=== PATIENT | female | born 1995 | race Caucasian/White ===

== ENCOUNTER 2016-06-12 21:49 | Emergency (ER) | payer OTHER ==
[2016-06-12] MEDS ORDERED: ACETAMINOPHEN TAB 325 MG TAB PO STA (22:07)
[2016-06-12] MEDS ORDERED: IBUPROFEN 400 MG TAB PO STA (22:08)
--- NOTE | 2016-06-12 22:19 | ED ---
URI HPI - General Chief Complaint: Upper Respiratory Infection Stated Complaint: fever/congestion Time Seen by Provider: 06/12/16 21:58 Source: patient Mode of arrival: ambulatory Limitations: no limitations - History of Present Illness Initial Comments: Patient is a 21-year-old female presenting to the emergency department with complaints of fever, cough, congestion, headache, and body aches. Onset of symptoms 2 days ago. MD Complaint: fever Onset/Timin -: days(s) Severity: moderate Severity scale (1-10): 6 Quality: aching Consistency: constant Improves With: nothing Worsens With: nothing Context: sick contacts (Patient's mother is currently being treated for bronchitis and pneumonia. Patient's son has fevers and cough.) Associated Symptoms: fever, chills, myalgias, headache, nasal congestion, sore throat, cough, vomiting (Patient vomited once today.) - Related Data Home Medications Medication Instructions Recorded Confirmed Pnv with Ca,No.72/Iron/FA 1 each PO DAILY 05/15/14 09/04/14 [ Vitamin with Low Iron] Previous Rx's Medication Instructions Recorded Oseltamivir [Tamiflu] 75 mg PO Q12HR #10 cap 06/12/16 Allergies Allergy/AdvReac Type Severity Reaction Status Date / Time No Known Allergies Allergy Verified 06/12/16 21:56 Review of Systems ROS Statement: Those systems with pertinent positive or pertinent negative responses have been documented in the HPI. ROS Other: All systems not noted in ROS Statement are negative. Past Medical History Past Medical History: No Reported History Additional Past Medical History / Comment(s): SYNCOPE; gestational diabetes diet controlled History of Any Multi-Drug Resistant Organisms: None Reported Additional Past Surgical History / Comment(s): KIDNEY SURGERY Past Anesthesia/Blood Transfusion Reactions: No Reported Reaction Past Psychological History: No Psychological Hx Reported Smoking Status: Never smoker Past Alcohol Use History: None Reported Past Drug Use History: None Reported - Past Family History Mother Family Medical History: No Reported History Brother(s) Additional Family Medical History / Comment(s): Autistic General Exam Limitations: no limitations General appearance: alert, in no apparent distress Head exam: Present: atraumatic, normocephalic, normal inspection Eye exam: Present: normal appearance, PERRL. Absent: scleral icterus, conjunctival injection, periorbital swelling, periorbital tenderness ENT exam: Present: normal exam, normal oropharynx, mucous membranes moist, TM's normal bilaterally, normal external ear exam Neck exam: Present: normal inspection, full ROM. Absent: tenderness, lymphadenopathy Respiratory exam: Present: normal lung sounds bilaterally. Absent: respiratory distress, wheezes, rales, rhonchi, stridor Cardiovascular Exam: Present: normal rhythm, tachycardia, normal heart sounds GI/Abdominal exam: Present: soft, normal bowel sounds. Absent: tenderness Extremities exam: Present: normal inspection, full ROM, normal capillary refill Back exam: Present: normal inspection, full ROM Neurological exam: Present: alert, oriented X3, normal gait, other (No focal deficits). Absent: motor sensory deficit Psychiatric exam: Present: normal affect, normal mood Skin exam: Present: warm, dry, intact, normal color. Absent: rash Course Vital Signs 06/12/16 21:54 Temperature 102.5 F H Pulse Rate 125 H Respiratory 22 Rate Blood Pressure 115/69 O2 Sat by Pulse 99 Oximetry Medical Decision Making - Medical Decision Making Influenza B. Patient provided with a prescription for Tamiflu. Instructed to continue Tylenol or Motrin for fever and pain. Encourage oral intake. Follow- up with primary care physician if symptoms do not improve or the emergency department. Patient agrees with treatment plan. Discharge instructions and return parameters reviewed. - Lab Data Lab Results 06/12/16 Range/Units 22:00 Influenza Type A RNA Not Detected (Not Detectd) Influenza Type B (PCR) Detected H (Not Detectd) - Radiology Data Radiology results: report reviewed Chest x-ray: No active cardiopulmonary process. Disposition Clinical Impression: Influenza B Disposition: HOME SELF-CARE Condition: Good Instructions: Influenza (ED) Additional Instructions: Finish Tamiflu as prescribed. Continue Motrin and Tylenol for fever and pain. Stay hydrated. Follow-up with primary care physician as needed. Please return to the emergency department if symptoms do not improve or get worse. Prescriptions: Oseltamivir [Tamiflu] 75 mg PO Q12HR #10 cap Referrals: Angelo Bales MD [Primary Care Provider] - 1-2 days Time of Disposition: 22:41
--- NOTE | 2016-06-12 22:27 | XR ---
EXAM: XR Chest, 2 Views. CLINICAL HISTORY: Reason: Pain TECHNIQUE: Frontal and lateral views of the chest. COMPARISON: None available FINDINGS: Lungs: Lungs are clear.. Pleural space: Unremarkable. No pneumothorax. Heart: Unremarkable. No cardiomegaly. Mediastinum: Unremarkable. Bones/joints: Unremarkable. IMPRESSION: No evidence of active chest disease
[2016-06-12] MEDS ORDERED: OSELTAMIVIR 75 MG CAP PO STA (22:36)
[2016-06-12 23:12] VITALS: BP 132/62; PULSE 85; RESP 18; TEMP 100.6
== END 2016-06-12 23:12 | disposition home or self-care (01) ==
LOC: EC 21:49
DX: J10.1 Influenza due to other identified influenza virus with other respiratory manifestations (principal)
CPT/HCPCS: 71020; 87502; 99283

== ENCOUNTER → 2017-04-17 | Outpatient (CLI) | payer OTHER ==
[2017-04-19 05:07] LABS: Herpes simplex I and/or II IgM 0.65 INDEX (<=0.90); Herpes simplex IgG I Ab 0.01 (< or = 0.90); Herpes simplex IgG II Ab 0.1 (< or = 0.90)
== END | disposition home or self-care (01) ==
LOC: LABWHC1 14:22
PROVIDERS: ATTEND Obstetrics & Gynecology
DX: Z20.2 Contact with and (suspected) exposure to infections with a predominantly sexual mode of transmission (principal); Z71.1 Person with feared health complaint in whom no diagnosis is made
CPT/HCPCS: 36415; 86694; 86695; 86696

== ENCOUNTER → 2017-05-16 | Outpatient (CLI) | payer OTHER | END | disposition home or self-care (01) | LOC: LABWHC1 11:01 | PROVIDERS: ATTEND Obstetrics & Gynecology | DX: Z34.90 Encounter for supervision of normal pregnancy, unspecified, unspecified trimester (principal) | CPT/HCPCS: 36415; 84702 ==

== ENCOUNTER 2017-07-01 10:56 | Emergency (ER) | payer OTHER ==
[2017-07-01] MEDS ORDERED: SODIUM CHLORIDE 0.9% 1,000 ML IV STA (11:22)
[2017-07-01 11:41] LABS: Basophils % (A) 0 %; Eosinophils # (A) 0.1 k/uL (0-0.7); Eosinophils % (A) 2 %; HCT 38.4 % (34.0-46.0); HGB 13.9 gm/dL (11.4-16.0); Lymphocytes # (A) 1.2 k/uL (1.0-4.8); Lymphocytes % (A) 29 %; MCH 30.6 pg (25.0-35.0); MCHC 36.2 g/dL (31.0-37.0); MCV 84.5 fL (80.0-100.0); Mean Platelet Volume 6.5; Monocytes # (A) 0.2 k/uL (0-1.0); Monocytes % (A) 5 %; Neutrophils # (A) 2.5 k/uL (1.3-7.7); Neutrophils % (A) 62 %; Platelet Count 173 k/uL (150-450); RBC 4.55 m/uL (3.80-5.40); RDW 12.4 % (11.5-15.5); WBC 4.1 k/uL (3.8-10.6)
[2017-07-01 11:48] LABS: Amorphous Sediment,Urine Rare /hpf; Appearance,Urine Cloudy (Clear); Bacteria,Urine Few /hpf; Bilirubin,Urine Negative (Negative); Blood,Urine Negative (Negative); Color,Urine Yellow; Glucose,Urine (UA) Negative (Negative); Ketones,Urine Negative (Negative); Leukocyte Esterase,Urine Large (Negative); Mucus,Urine Rare /hpf; Nitrite,Urine Positive (Negative); Protein,Urine Negative (Negative); Specific Gravity,Urine 1.013 (1.001-1.035); Squamous Epithelial Cell,Urine 17 /hpf (0-4); Urobilinogen,Urine <2.0 mg/dL (<2.0); WBC,Urine 38 /hpf (0-5)
[2017-07-01 11:51] LABS: ALT 22 U/L (9-52); AST 16 U/L (14-36); Albumin 4.4 g/dL (3.5-5.0); Alkaline Phosphatase 75 U/L (38-126); Amylase 41 U/L (30-110); Anion Gap 13 mmol/L; Blood Urea Nitrogen 13 mg/dL (7-17); Calcium 9.5 mg/dL (8.4-10.2); Carbon Dioxide 25 mmol/L (22-30); Chloride 104 mmol/L (98-107); Glucose 91 mg/dL (74-99); Lipase 55 U/L (23-300); Potassium 4.3 mmol/L (3.5-5.1); Sodium 142 mmol/L (137-145); Total Bilirubin 0.8 mg/dL (0.2-1.3); Total Protein 7.5 g/dL (6.3-8.2)
--- NOTE | 2017-07-01 11:55 | ED ---
Abdominal Pain HPI - General Chief Complaint: Abdominal Pain Stated Complaint: Abdominal pain Time Seen by Provider: 07/01/17 11:16 Source: patient, RN notes reviewed Mode of arrival: ambulatory Limitations: no limitations - History of Present Illness Initial Comments: This a 22-year-old female presents emergency Department chief complaint of intermittent abdominal pain. Patient states has been present last few days. Patient has had some nausea no vomiting no diarrhea no constipation. Denies any dysuria hematuria. Patient states nothing seems to bring on her symptoms are chronic and feel better. She does state that they're very short-lived. She states the pain is sharp stabbing nonradiating. She denies any prior abdominal surgeries. Her last mental cycle was one week ago. Denies any chance . Denies any vaginal bleeding or vaginal discharge. - Related Data Previous Rx's Medication Instructions Recorded Ciprofloxacin HCl [Cipro] 500 mg PO Q12HR #14 tablet 07/01/17 Allergies Allergy/AdvReac Type Severity Reaction Status Date / Time No Known Allergies Allergy Verified 07/01/17 12:36 Review of Systems ROS Statement: Those systems with pertinent positive or pertinent negative responses have been documented in the HPI. ROS Other: All systems not noted in ROS Statement are negative. Past Medical History Past Medical History: No Reported History Additional Past Medical History / Comment(s): SYNCOPE; gestational diabetes diet controlled History of Any Multi-Drug Resistant Organisms: None Reported Additional Past Surgical History / Comment(s): KIDNEY SURGERY Past Anesthesia/Blood Transfusion Reactions: No Reported Reaction Past Psychological History: No Psychological Hx Reported Smoking Status: Never smoker Past Alcohol Use History: Occasional Past Drug Use History: None Reported - Past Family History Mother Family Medical History: No Reported History Brother(s) Additional Family Medical History / Comment(s): Autistic General Exam Limitations: no limitations General appearance: alert, in no apparent distress Head exam: Present: atraumatic, normocephalic, normal inspection Respiratory exam: Present: normal lung sounds bilaterally. Absent: respiratory distress, wheezes, rales, rhonchi, stridor Cardiovascular Exam: Present: regular rate, normal rhythm, normal heart sounds. Absent: systolic murmur, diastolic murmur, rubs, gallop, clicks GI/Abdominal exam: Present: soft, normal bowel sounds. Absent: distended, tenderness, guarding, rebound, rigid Back exam: Absent: CVA tenderness (R), CVA tenderness (L) Skin exam: Present: warm, dry, intact, normal color. Absent: rash Course Vital Signs 07/01/17 10:57 Temperature 98.6 F Pulse Rate 90 Respiratory 20 Rate Blood Pressure 132/81 O2 Sat by Pulse 98 Oximetry Medical Decision Making - Medical Decision Making 22-year-old female presented from foramina lower abdominal pain. Patient is found to have urinary tract infection. Patient's pelvic ultrasound was within normal limits no evidence of brain cyst. Patient's labwork otherwise unremarkable. Patient be given Rocephin emergency Department discharged on ciprofloxacin. Patient urine was cultured. She'll follow-up with primary care physician and return for any worsening symptoms. - Lab Data Result diagrams: 07/01/17 11:20 07/01/17 11:20 Lab Results 07/01/17 07/01/17 07/01/17 Range/Units 11:20 11:20 11:20 WBC 4.1 (3.8-10.6) k/uL RBC 4.55 (3.80-5.40) m/uL Hgb 13.9 (11.4-16.0) gm/dL Hct 38.4 (34.0-46.0) % MCV 84.5 (80.0-100.0) fL MCH 30.6 (25.0-35.0) pg MCHC 36.2 (31.0-37.0) g/dL RDW 12.4 (11.5-15.5) % Plt Count 173 (150-450) k/uL Neutrophils % 62 % Lymphocytes % 29 % Monocytes % 5 % Eosinophils % 2 % Basophils % 0 % Neutrophils # 2.5 (1.3-7.7) k/uL Lymphocytes # 1.2 (1.0-4.8) k/uL Monocytes # 0.2 (0-1.0) k/uL Eosinophils # 0.1 (0-0.7) k/uL Basophils # 0.0 (0-0.2) k/uL Sodium 142 (137-145) mmol/L Potassium 4.3 (3.5-5.1) mmol/L Chloride 104 (98-107) mmol/L Carbon Dioxide 25 (22-30) mmol/L Anion Gap 13 mmol/L BUN 13 (7-17) mg/dL Creatinine 0.60 (0.52-1.04) mg/dL Est GFR (CKD-EPI)AfAm >90 (>60 ml/min/1.73 sqM) Est GFR (CKD-EPI)NonAf >90 (>60 ml/min/1.73 sqM) Glucose 91 (74-99) mg/dL Calcium 9.5 (8.4-10.2) mg/dL Total Bilirubin 0.8 (0.2-1.3) mg/dL AST 16 (14-36) U/L ALT 22 (9-52) U/L Alkaline Phosphatase 75 (38-126) U/L Total Protein 7.5 (6.3-8.2) g/dL Albumin 4.4 (3.5-5.0) g/dL Amylase 41 (30-110) U/L Lipase 55 (23-300) U/L Urine Color Yellow Urine Appearance Cloudy H (Clear) Urine pH 7.0 (5.0-8.0) Ur Specific [place] 1.013 (1.001-1.035) Urine Protein Negative (Negative) Urine Glucose (UA) Negative (Negative) Urine Ketones Negative (Negative) Urine Blood Negative (Negative) Urine Nitrite Positive H (Negative) Urine Bilirubin Negative (Negative) Urine Urobilinogen <2.0 (<2.0) mg/dL Ur Leukocyte Esterase Large H (Negative) Urine WBC 38 H (0-5) /hpf Urine WBC Clumps Rare H (None) /hpf Ur Squamous Epith Cells 17 H (0-4) /hpf Amorphous Sediment Rare H (None) /hpf Urine Bacteria Few H (None) /hpf Urine Mucus Rare H (None) /hpf Urine HCG, Qual (Not Detectd) 07/01/17 Range/Units 11:20 WBC (3.8-10.6) k/uL RBC (3.80-5.40) m/uL Hgb (11.4-16.0) gm/dL Hct (34.0-46.0) % MCV (80.0-100.0) fL MCH (25.0-35.0) pg MCHC (31.0-37.0) g/dL RDW (11.5-15.5) % Plt Count (150-450) k/uL Neutrophils % % Lymphocytes % % Monocytes % % Eosinophils % % Basophils % % Neutrophils # (1.3-7.7) k/uL Lymphocytes # (1.0-4.8) k/uL Monocytes # (0-1.0) k/uL Eosinophils # (0-0.7) k/uL Basophils # (0-0.2) k/uL Sodium (137-145) mmol/L Potassium (3.5-5.1) mmol/L Chloride (98-107) mmol/L Carbon Dioxide (22-30) mmol/L Anion Gap mmol/L BUN (7-17) mg/dL Creatinine (0.52-1.04) mg/dL Est GFR (CKD-EPI)AfAm (>60 ml/min/1.73 sqM) Est GFR (CKD-EPI)NonAf (>60 ml/min/1.73 sqM) Glucose (74-99) mg/dL Calcium (8.4-10.2) mg/dL Total Bilirubin (0.2-1.3) mg/dL AST (14-36) U/L ALT (9-52) U/L Alkaline Phosphatase (38-126) U/L Total Protein (6.3-8.2) g/dL Albumin (3.5-5.0) g/dL Amylase (30-110) U/L Lipase (23-300) U/L Urine Color Urine Appearance (Clear) Urine pH (5.0-8.0) Ur Specific [place] (1.001-1.035) Urine Protein (Negative) Urine Glucose (UA) (Negative) Urine Ketones (Negative) Urine Blood (Negative) Urine Nitrite (Negative) Urine Bilirubin (Negative) Urine Urobilinogen (<2.0) mg/dL Ur Leukocyte Esterase (Negative) Urine WBC (0-5) /hpf Urine WBC Clumps (None) /hpf Ur Squamous Epith Cells (0-4) /hpf Amorphous Sediment (None) /hpf Urine Bacteria (None) /hpf Urine Mucus (None) /hpf Urine HCG, Qual Not Detected (Not Detectd) Disposition Clinical Impression: UTI (urinary tract infection), Abdominal pain Disposition: HOME SELF-CARE Condition: Stable Instructions: Urinary Tract Infection in Women (ED) Additional Instructions: Please return to the Emergency Department if symptoms worsen or any other concerns. Prescriptions: Ciprofloxacin HCl [Cipro] 500 mg PO Q12HR #14 tablet Referrals: Angelo Bales MD [Primary Care Provider] - 1-2 days Time of Disposition: 13:00
--- NOTE | 2017-07-01 12:57 | US ---
EXAMINATION TYPE: US transvaginal DATE OF EXAM: 07/01/2017 COMPARISON: NONE CLINICAL HISTORY: Pain. Pt states midline pelvic pain that started this AM TECHNIQUE: Transvaginal (TV). Date of LMP: 06/21/2017 EXAM MEASUREMENTS: Uterus: 8.2 x 4.0 x 6.0 cm Endometrial Stripe: 0.9 cm Right Ovary: 3.3 x 2.4 x 2.6 cm Left Ovary: 3.2 x 2.1 x 2.8 cm 1. Uterus: Anteverted wnl 2. Endometrium: wnl 3. Right Ovary: wnl 4. Left Ovary: Dominant follicle= 1.4 cm Spectral, color and waveform doppler imaging shows good arterial and venous flow within the ovaries ; there is no evidence for ovarian torsion. 5. Bilateral Adnexa: wnl 6. Posterior cul-de-sac: Scant amount of fluid posterior to cervix IMPRESSION: NORMAL PELVIC ULTRASOUND.
[2017-07-01] MEDS ORDERED: cefTRIAXone IN SWFI 1,000 MG/10 ML SYRINGE IVP STA (13:00)
[2017-07-01 13:07] VITALS: BP 122/78; PULSE 79; RESP 17; TEMP 98.3
== END 2017-07-01 13:30 | disposition home or self-care (01) ==
LOC: EC 10:56
DX: N39.0 Urinary tract infection, site not specified (principal); R10.30 Lower abdominal pain, unspecified; Z98.890 Other specified postprocedural states
CPT/HCPCS: 36415; 80053; 82150; 83690; 85025; 81001; 81025; 93975; 76830; 99284; 96374; 96361; J0696

== ENCOUNTER 2017-11-01 20:30 | Emergency (ER) | payer OTHER ==
[2017-11-01 21:09] VITALS: BP 111/66; PULSE 103; RESP 18; TEMP 98.4
[2017-11-02 06:05] LABS: Appearance,Urine Cloudy (Clear); Bacteria,Urine Moderate /hpf; Bilirubin,Urine Negative (Negative); Blood,Urine Negative (Negative); Color,Urine Yellow; Glucose,Urine (UA) Negative (Negative); Ketones,Urine Negative (Negative); Leukocyte Esterase,Urine Large (Negative); Mucus,Urine Rare /hpf; Nitrite,Urine Negative (Negative); Protein,Urine Trace (Negative); RBC,Urine 3 /hpf (0-5); Specific Gravity,Urine 1.015 (1.001-1.035); Squamous Epithelial Cell,Urine 17 /hpf (0-4); Urobilinogen,Urine <2.0 mg/dL (<2.0); WBC,Urine 64 /hpf (0-5)
== END 2017-11-02 00:30 | disposition home or self-care (01) ==
LOC: EC 20:30
DX: R10.13 Epigastric pain (principal); Z98.890 Other specified postprocedural states
CPT/HCPCS: 81001; 81025; 87086; 99284

== ENCOUNTER 2018-01-06 12:45 | Emergency (ER) | payer OTHER ==
[2018-01-06] MEDS ORDERED: diphenhydrAMINE 50 MG/ML 1 ML VIAL IVP STA (13:08)
[2018-01-06] MEDS ORDERED: SODIUM CHLORIDE 0.9% 2,000 ML IV STA (13:08)
[2018-01-06] MEDS ORDERED: METOCLOPRAMIDE 5 MG/ML 2 ML VIAL IVP STA (13:08)
--- NOTE | 2018-01-06 13:21 | ED ---
Nausea/Vomiting/Diarrhea HPI - General Chief complaint: Nausea/Vomiting/Diarrhea Stated complaint: 7 WEEKS , NAUSEA, VOMITING Time Seen by Provider: 01/06/18 12:59 Source: patient, family, RN notes reviewed, old records reviewed Mode of arrival: ambulatory Limitations: no limitations - History of Present Illness Initial comments: 22-year-old female who is currently 7 weeks , AUTOMATION OPERATOR is Dr. Galeana. Patient states that she's been having nonstop nausea and vomiting for the past few weeks. It's been increasingly worse over the past 2 days. Patient states she feels somewhat weak. She also reports she's been treated for urinary tract infection. She started antibiotics yesterday. His only had one dose. Patient denies any fever or chills, denies any back pain. She denies any vaginal bleeding or discharge. This is her second . - Related Data Home Medications Medication Instructions Recorded Confirmed Pnv No.95/Ferrous Fum/Folic AC 1 each PO DAILY 01/06/18 01/06/18 [ Multivitamin Tablet] Allergies Allergy/AdvReac Type Severity Reaction Status Date / Time codeine AdvReac Nausea & Verified 01/06/18 12:50 Vomiting Review of Systems ROS Statement: Those systems with pertinent positive or pertinent negative responses have been documented in the HPI. ROS Other: All systems not noted in ROS Statement are negative. Past Medical History Past Medical History: Syncope Additional Past Medical History / Comment(s): SYNCOPE; gestational diabetes diet controlled History of Any Multi-Drug Resistant Organisms: None Reported Additional Past Surgical History / Comment(s): KIDNEY SURGERY Past Anesthesia/Blood Transfusion Reactions: No Reported Reaction Past Psychological History: No Psychological Hx Reported Smoking Status: Never smoker Past Alcohol Use History: Occasional Past Drug Use History: None Reported - Past Family History Mother Family Medical History: No Reported History Brother(s) Additional Family Medical History / Comment(s): Autistic General Exam - General Exam Comments Initial Comments: (22-year-old female. Alert and oriented. No Distress. Limitations: no limitations General appearance: alert, in no apparent distress Head exam: Present: atraumatic, normocephalic, normal inspection Eye exam: Present: normal appearance, PERRL, EOMI. Absent: scleral icterus, conjunctival injection, periorbital swelling ENT exam: Present: normal exam, mucous membranes moist Neck exam: Present: normal inspection. Absent: tenderness, meningismus, lymphadenopathy Respiratory exam: Present: normal lung sounds bilaterally. Absent: respiratory distress, wheezes, rales, rhonchi, stridor Cardiovascular Exam: Present: regular rate, normal rhythm, normal heart sounds. Absent: systolic murmur, diastolic murmur, rubs, gallop, clicks GI/Abdominal exam: Present: soft, normal bowel sounds. Absent: distended, tenderness, guarding, rebound, rigid Extremities exam: Present: normal inspection, full ROM, normal capillary refill. Absent: tenderness, pedal edema, joint swelling, calf tenderness Back exam: Present: normal inspection Neurological exam: Present: alert, oriented X3, CN II-XII intact Psychiatric exam: Present: normal affect, normal mood Skin exam: Present: warm, dry, intact, normal color. Absent: rash Course Vital Signs 01/06/18 01/06/18 01/06/18 12:50 14:45 15:44 Temperature 99.4 F 99.0 F Pulse Rate 97 87 81 Respiratory 18 20 20 Rate Blood Pressure 121/58 106/62 102/56 O2 Sat by Pulse 100 99 99 Oximetry Medical Decision Making - Medical Decision Making 22-year-old, female, currently 7 weeks presents prescription complaint of nausea and vomiting for the past few weeks. Worse for the past 2 days. Is also being treated for urinary tract infection at this time. She has been on Keflex. Patient was given IV fluids labwork obtained. Patient's labwork was reviewed and unremarkable. She was given 2 L of IV fluids, Reglan and Benadryl for nausea. She denies any specific pain at this time. Urinalysis is positive for infection. Discussed I will give the Patient a dose of Rocephin in the emergency department. Patient did have a health information technologist. heart tones. Baby appears to be normal, symmetric 6 weeks and 6 days. Heart rate was 126. At this time Patient also was noted to have a mass with a right ovary. Discussed close follow-up with AUTOMATION OPERATOR. Patient informed of his results and return parameters were discussed. She feels much better at time of discharge. - Lab Data Result diagrams: 01/06/18 13:30 01/06/18 13:30 Lab Results 01/06/18 01/06/18 01/06/18 Range/Units 13:30 13:30 13:30 WBC 6.7 (3.8-10.6) k/uL RBC 4.09 (3.80-5.40) m/uL Hgb 12.2 (11.4-16.0) gm/dL Hct 35.7 (34.0-46.0) % MCV 87.2 (80.0-100.0) fL MCH 29.9 (25.0-35.0) pg MCHC 34.3 (31.0-37.0) g/dL RDW 12.8 (11.5-15.5) % Plt Count 183 (150-450) k/uL Neutrophils % 84 % Lymphocytes % 8 % Monocytes % 5 % Eosinophils % 1 % Basophils % 0 % Neutrophils # 5.6 (1.3-7.7) k/uL Lymphocytes # 0.6 L (1.0-4.8) k/uL Monocytes # 0.4 (0-1.0) k/uL Eosinophils # 0.1 (0-0.7) k/uL Basophils # 0.0 (0-0.2) k/uL Sodium 141 (137-145) mmol/L Potassium 4.6 (3.5-5.1) mmol/L Chloride 105 (98-107) mmol/L Carbon Dioxide 24 (22-30) mmol/L Anion Gap 12 mmol/L BUN 12 (7-17) mg/dL Creatinine 0.53 (0.52-1.04) mg/dL Est GFR (CKD-EPI)AfAm >90 (>60 ml/min/1.73 sqM) Est GFR (CKD-EPI)NonAf >90 (>60 ml/min/1.73 sqM) Glucose 91 (74-99) mg/dL Calcium 9.7 (8.4-10.2) mg/dL Total Bilirubin 1.3 (0.2-1.3) mg/dL AST 21 (14-36) U/L ALT 17 (9-52) U/L Alkaline Phosphatase 65 (38-126) U/L Total Protein 8.0 (6.3-8.2) g/dL Albumin 4.5 (3.5-5.0) g/dL Amylase 37 (30-110) U/L Lipase 61 (23-300) U/L Urine Color Yellow Urine Appearance Cloudy H (Clear) Urine pH 6.5 (5.0-8.0) Ur Specific [place] 1.019 (1.001-1.035) Urine Protein Trace H (Negative) Urine Glucose (UA) Negative (Negative) Urine Ketones 1+ H (Negative) Urine Blood Negative (Negative) Urine Nitrite Positive H (Negative) Urine Bilirubin Negative (Negative) Urine Urobilinogen 2.0 (<2.0) mg/dL Ur Leukocyte Esterase Large H (Negative) Urine RBC 1 (0-5) /hpf Urine WBC 43 H (0-5) /hpf Urine WBC Clumps Rare H (None) /hpf Ur Squamous Epith Cells 12 H (0-4) /hpf Urine Bacteria Rare H (None) /hpf Urine Mucus Moderate H (None) /hpf - Radiology Data Radiology results: report reviewed Single intrauterine gestation at 6 weeks and 6 days. Hypoechoic collection adjacent to the gestational sac which may represent a subchorionic hemorrhage. Cardiac activity is 1 24 bpm. Solid lesion on the right ovary. Follow-up is recommended. Disposition Clinical Impression: 6 weeks gestation of , Nausea & vomiting, UTI in , Right ovarian cyst Disposition: HOME SELF-CARE Condition: Good Instructions: Acute Nausea and Vomiting (ED) Additional Instructions: Patient has up with AUTOMATION OPERATOR and primary care physician. Rest, remain hydrated. Take vitamin B6 help with nausea. Return to emergency department if any alarming signs or symptoms occur. Is patient prescribed a controlled substance at d/c from ED?: No Referrals: Aneglo Bales MD [Primary Care Provider] - 1-2 days Jose Guerin DO [Doctor of Osteopathic Medicine] - 1-2 days Time of Disposition: 15:21
[2018-01-06 13:48] LABS: Basophils % (A) 0 %; Eosinophils # (A) 0.1 k/uL (0-0.7); Eosinophils % (A) 1 %; HCT 35.7 % (34.0-46.0); HGB 12.2 gm/dL (11.4-16.0); Lymphocytes # (A) 0.6 k/uL (1.0-4.8); Lymphocytes % (A) 8 %; MCH 29.9 pg (25.0-35.0); MCHC 34.3 g/dL (31.0-37.0); MCV 87.2 fL (80.0-100.0); Mean Platelet Volume 7.4; Monocytes # (A) 0.4 k/uL (0-1.0); Monocytes % (A) 5 %; Neutrophils # (A) 5.6 k/uL (1.3-7.7); Neutrophils % (A) 84 %; Platelet Count 183 k/uL (150-450); RBC 4.09 m/uL (3.80-5.40); RDW 12.8 % (11.5-15.5); WBC 6.7 k/uL (3.8-10.6)
[2018-01-06 13:53] LABS: Appearance,Urine Cloudy (Clear); Bacteria,Urine Rare /hpf; Bilirubin,Urine Negative (Negative); Blood,Urine Negative (Negative); Color,Urine Yellow; Glucose,Urine (UA) Negative (Negative); Ketones,Urine 1+ (Negative); Leukocyte Esterase,Urine Large (Negative); Mucus,Urine Moderate /hpf; Nitrite,Urine Positive (Negative); PH, Urine 6.5 (5.0-8.0); Protein,Urine Trace (Negative); RBC,Urine 1 /hpf (0-5); Specific Gravity,Urine 1.019 (1.001-1.035); Squamous Epithelial Cell,Urine 12 /hpf (0-4); WBC,Urine 43 /hpf (0-5)
[2018-01-06 13:58] LABS: Albumin 4.5 g/dL (3.5-5.0); Amylase 37 U/L (30-110); Anion Gap 12 mmol/L; Blood Urea Nitrogen 12 mg/dL (7-17); Calcium 9.7 mg/dL (8.4-10.2); Carbon Dioxide 24 mmol/L (22-30); Chloride 105 mmol/L (98-107); Glucose 91 mg/dL (74-99); Lipase 61 U/L (23-300); Sodium 141 mmol/L (137-145); Total Bilirubin 1.3 mg/dL (0.2-1.3)
[2018-01-06 14:01] LABS: ALT 17 U/L (9-52); AST 21 U/L (14-36); Alkaline Phosphatase 65 U/L (38-126); Potassium 4.6 mmol/L (3.5-5.1)
[2018-01-06 14:51] VITALS: RESP 20
--- NOTE | 2018-01-06 15:05 | US ---
EXAMINATION TYPE: Transabdominal DATE OF EXAM: 07/11/17 COMPARISON: NONE CLINICAL HISTORY: Pain. Patient unable to keep anything down, no complaints of bleeding or cramping. EXAM PERFORMED: Transvaginal (TV) and Transabdominal (TA) EXAM MEASUREMENTS: GESTATIONAL AGE / DATING Physician Established: Not yet established Dates by LMP: (7 weeks/2 days) EDC: 08/23/2018 Dates by First Scan: No previous this is first scan Dates by Current Scan for: (6 weeks/6 days) EDC: 08/26/2018 MATERNAL ANATOMY Uterus: 6.7 x 6.4 x 7.8 cm Right Ovary: 3.0 x 2.1 x 3.3 cm Left Ovary: 2.7 x 1.3 x 1.6 cm Post CDS / Adnexa: no free fluid Presence of free fluid: none Presence of corpus luteal cyst: solid area on right ovary measures 1.9 x 1.6 x 1.4 cm without increas ed vascularity. Presence of subchorionic bleed: anechoic area adjacent to sac measures 1.9 x 0.5 x 1.5 cm GESTATION / SURVEY CRL: 0.9 cm (6 weeks/6 days) Yolk Sac (normal less than 6mm): 0.3 cm Heart Rate: 124 bpm Rhythm: Normal IUP: Viable IUP Date of LMP: 11/16/2017 Beta HcG (if available): not available Single IUP that correlates with LMP. IMPRESSION: 1. Single intrauterine gestation estimated at 6 weeks 6 days gestation based on crown-rump length. 2. Hypoechoic collection adjacent to the gestational sac may be a subchorionic hemorrhage. 3. Cardiac activity measures 124 bpm. 4. Solid lesion on the right ovary. Follow-up is recommended.
[2018-01-06 15:45] VITALS: BP 102/56; PULSE 81; TEMP 99
== END 2018-01-06 15:44 | disposition home or self-care (01) ==
LOC: EC 12:45
DX: O21.9 Vomiting of pregnancy, unspecified (principal); O23.41 Unspecified infection of urinary tract in pregnancy, first trimester; O99.89 Other specified diseases and conditions complicating pregnancy, childbirth and the puerperium; N83.201 Unspecified ovarian cyst, right side; Z88.5 Allergy status to narcotic agent; Z3A.01 Less than 8 weeks gestation of pregnancy
CPT/HCPCS: 36415; 80053; 82150; 83690; 85025; 81001; 87086; 76801; 76817; 99284; 96365; 96375 ×2; 96361; J1200; J2765; J0696; 87077; 87186

== ENCOUNTER 2018-01-09 14:31 | Emergency (ER) | payer OTHER ==
[2018-01-09 14:39] VITALS: TEMP 98.3
[2018-01-09] MEDS ORDERED: SODIUM CHLORIDE 0.9% 1,000 ML IV STA ×2 (14:47)
[2018-01-09] MEDS ORDERED: METOCLOPRAMIDE 5 MG/ML 2 ML VIAL IVP STA (14:47)
[2018-01-09] MEDS ORDERED: diphenhydrAMINE 50 MG/ML 1 ML VIAL IVP STA (14:47)
--- NOTE | 2018-01-09 14:49 | ED ---
Nausea/Vomiting/Diarrhea HPI - General Chief complaint: Nausea/Vomiting/Diarrhea Stated complaint: Abd pain, headache, Time Seen by Provider: 01/09/18 14:41 Source: patient, RN notes reviewed, old records reviewed Mode of arrival: ambulatory Limitations: no limitations - History of Present Illness Initial comments: 22-year-old female presents emergency department today for reevaluation due to nausea and vomiting. She is approximately 8 weeks . Her [employer] is Dr. Galeana. Patient states that she is being treated for urinary tract infection. She has been taking the Keflex but having hard time keeping her antibiotics medications down. She's been draining Unisom and B6 but has had little relief of her nausea. She states she is now having some chest pain and discomfort due to the vomiting. Patient denies any recent fever or chills. She states she's been having some lower cramping abdominal pain but denies any diarrhea. She denies any vaginal discharge or bleeding. - Related Data Home Medications Medication Instructions Recorded Confirmed Pnv No.95/Ferrous Fum/Folic AC 1 tab PO DAILY 01/06/18 01/09/18 [ Multivitamin Tablet] Cephalexin [Keflex] 500 mg PO QID 01/09/18 01/09/18 Doxylamine Succinate [Unisom] 25 mg PO HS 01/09/18 01/09/18 Pyridoxine [Vitamin B-6] 50 mg PO BID 01/09/18 01/09/18 Previous Rx's Medication Instructions Recorded Cephalexin [Keflex] 500 mg PO Q8HR #21 cap 01/09/18 Metoclopramide HCl [Reglan] 10 mg PO TID #12 tablet 01/09/18 diphenhydrAMINE [Benadryl] 25 mg PO TID #20 capsule 01/09/18 Allergies Allergy/AdvReac Type Severity Reaction Status Date / Time codeine AdvReac Nausea & Verified 01/09/18 14:51 Vomiting Review of Systems ROS Statement: Those systems with pertinent positive or pertinent negative responses have been documented in the HPI. ROS Other: All systems not noted in ROS Statement are negative. Past Medical History Past Medical History: Syncope Additional Past Medical History / Comment(s): SYNCOPE; gestational diabetes diet controlled History of Any Multi-Drug Resistant Organisms: None Reported Additional Past Surgical History / Comment(s): KIDNEY SURGERY Past Anesthesia/Blood Transfusion Reactions: No Reported Reaction Past Psychological History: No Psychological Hx Reported Smoking Status: Never smoker Past Alcohol Use History: Occasional Past Drug Use History: None Reported - Past Family History Mother Family Medical History: No Reported History Brother(s) Additional Family Medical History / Comment(s): Autistic General Exam - General Exam Comments Initial Comments: 22-year-old female. Alert and oriented. No acute distress. Limitations: no limitations General appearance: alert, in no apparent distress Head exam: Present: atraumatic, normocephalic, normal inspection Eye exam: Present: normal appearance, PERRL, EOMI. Absent: scleral icterus, conjunctival injection, periorbital swelling ENT exam: Present: normal exam, mucous membranes moist Neck exam: Present: normal inspection. Absent: tenderness, meningismus, lymphadenopathy Respiratory exam: Present: normal lung sounds bilaterally. Absent: respiratory distress, wheezes, rales, rhonchi, stridor Cardiovascular Exam: Present: regular rate, normal rhythm, normal heart sounds. Absent: systolic murmur, diastolic murmur, rubs, gallop, clicks GI/Abdominal exam: Present: soft, normal bowel sounds. Absent: distended, tenderness, guarding, rebound, rigid Extremities exam: Present: normal inspection, full ROM, normal capillary refill. Absent: tenderness, pedal edema, joint swelling, calf tenderness Back exam: Present: normal inspection Neurological exam: Present: alert, oriented X3, CN II-XII intact Psychiatric exam: Present: normal affect, normal mood Skin exam: Present: warm, dry, intact, normal color. Absent: rash Course Vital Signs 01/09/18 14:36 Temperature 98.3 F Pulse Rate 99 Respiratory 18 Rate Blood Pressure 108/75 O2 Sat by Pulse 100 Oximetry - Reevaluation(s) Reevaluation #1: 01/09/18 17:26 is reevaluated this time. Patient that she was better after Reglan and Benadryl and fluids. Medical Decision Making - Medical Decision Making 22-year-old female presents emergency department today with chief complaint of nausea vomiting. She states that she's been having the symptoms through the majority of early . She was seen by myself 2 days ago for similar complaints. At that time Patient was treated for urinary tract infection I did give the Patient IV Rocephin. She does have outpatient prescription for Keflex. She rubs today complaining of continued nausea and vomiting. Since she cannot keep her antibiotics down. Patient's vital signs are stable. Patient's labwork was reviewed and unremarkable. Did give the Patient 2 L bolus. She does feel better after receiving Reglan and Benadryl. I will give the Patient another gram of Rocephin as her urinalysis to continue to show some signs of minor infection. She has no CVA tenderness. No fever at this time. I discussed that we'll discharge Patient today with Reglan and Benadryl prescription and that she could use instead of the Unisom and B6. I discussed that she has some follow-up with PCP. Patient agrees to treatment plan will comply. Return parameters were discussed. - Lab Data Result diagrams: 01/09/18 15:10 01/09/18 15:10 Lab Results 01/09/18 01/09/18 01/09/18 Range/Units 15:10 15:10 17:05 WBC 5.0 (3.8-10.6) k/uL RBC 4.41 (3.80-5.40) m/uL Hgb 13.2 (11.4-16.0) gm/dL Hct 38.2 (34.0-46.0) % MCV 86.6 (80.0-100.0) fL MCH 29.8 (25.0-35.0) pg MCHC 34.5 (31.0-37.0) g/dL RDW 12.7 (11.5-15.5) % Plt Count 119 L (150-450) k/uL Neutrophils % 76 % Lymphocytes % 17 % Monocytes % 4 % Eosinophils % 2 % Basophils % 0 % Neutrophils # 3.8 (1.3-7.7) k/uL Lymphocytes # 0.8 L (1.0-4.8) k/uL Monocytes # 0.2 (0-1.0) k/uL Eosinophils # 0.1 (0-0.7) k/uL Basophils # 0.0 (0-0.2) k/uL Sodium 139 (137-145) mmol/L Potassium 4.3 (3.5-5.1) mmol/L Chloride 103 (98-107) mmol/L Carbon Dioxide 21 L (22-30) mmol/L Anion Gap 15 mmol/L BUN 11 (7-17) mg/dL Creatinine 0.53 (0.52-1.04) mg/dL Est GFR (CKD-EPI)AfAm >90 (>60 ml/min/1.73 sqM) Est GFR (CKD-EPI)NonAf >90 (>60 ml/min/1.73 sqM) Glucose 84 (74-99) mg/dL Calcium 9.7 (8.4-10.2) mg/dL Total Bilirubin 1.1 (0.2-1.3) mg/dL AST 24 (14-36) U/L ALT 20 (9-52) U/L Alkaline Phosphatase 78 (38-126) U/L Total Protein 7.9 (6.3-8.2) g/dL Albumin 4.4 (3.5-5.0) g/dL Amylase 44 (30-110) U/L Lipase 101 (23-300) U/L Urine Color Yellow Urine Appearance Cloudy H (Clear) Urine pH 7.0 (5.0-8.0) Ur Specific [place] 1.017 (1.001-1.035) Urine Protein Trace H (Negative) Urine Glucose (UA) Negative (Negative) Urine Ketones 3+ H (Negative) Urine Blood Negative (Negative) Urine Nitrite Negative (Negative) Urine Bilirubin Negative (Negative) Urine Urobilinogen 2.0 (<2.0) mg/dL Ur Leukocyte Esterase Large H (Negative) Urine RBC 8 H (0-5) /hpf Urine WBC 23 H (0-5) /hpf Ur Squamous Epith Cells 24 H (0-4) /hpf Amorphous Sediment Rare H (None) /hpf Urine Bacteria Few H (None) /hpf Urine Mucus Moderate H (None) /hpf - Radiology Data Radiology results: report reviewed Viable IUP. Heart rate of 140 beats per any. Disposition Clinical Impression: Nausea & vomiting, UTI in Disposition: HOME SELF-CARE Condition: Good Instructions: Urinary Tract Infection in Women (ED), Nausea and Vomiting in (ED) Additional Instructions: Patient has a follow-up with primary care provider. Follow-up with [employer]. Take previously prescribed antibiotics. Return to emergency department if any alarming signs or symptoms occur. Prescriptions: Cephalexin [Keflex] 500 mg PO Q8HR #21 cap diphenhydrAMINE [Benadryl] 25 mg PO TID #20 capsule Metoclopramide HCl [Reglan] 10 mg PO TID #12 tablet Is patient prescribed a controlled substance at d/c from ED?: No Referrals: Angelo Bales MD [Primary Care Provider] - 1-2 days Time of Disposition: 17:46
[2018-01-09 15:23] LABS: Basophils % (A) 0 %; Eosinophils # (A) 0.1 k/uL (0-0.7); Eosinophils % (A) 2 %; HCT 38.2 % (34.0-46.0); HGB 13.2 gm/dL (11.4-16.0); Lymphocytes # (A) 0.8 k/uL (1.0-4.8); Lymphocytes % (A) 17 %; MCH 29.8 pg (25.0-35.0); MCHC 34.5 g/dL (31.0-37.0); MCV 86.6 fL (80.0-100.0); Mean Platelet Volume 7.7; Monocytes # (A) 0.2 k/uL (0-1.0); Monocytes % (A) 4 %; Neutrophils # (A) 3.8 k/uL (1.3-7.7); Neutrophils % (A) 76 %; Platelet Count 119 k/uL (150-450); RBC 4.41 m/uL (3.80-5.40); RDW 12.7 % (11.5-15.5)
[2018-01-09 15:32] LABS: ALT 20 U/L (9-52); AST 24 U/L (14-36); Albumin 4.4 g/dL (3.5-5.0); Alkaline Phosphatase 78 U/L (38-126); Amylase 44 U/L (30-110); Anion Gap 15 mmol/L; Blood Urea Nitrogen 11 mg/dL (7-17); Calcium 9.7 mg/dL (8.4-10.2); Carbon Dioxide 21 mmol/L (22-30); Chloride 103 mmol/L (98-107); Glucose 84 mg/dL (74-99); Lipase 101 U/L (23-300); Potassium 4.3 mmol/L (3.5-5.1); Sodium 139 mmol/L (137-145); Total Bilirubin 1.1 mg/dL (0.2-1.3); Total Protein 7.9 g/dL (6.3-8.2)
--- NOTE | 2018-01-09 16:35 | US ---
EXAMINATION TYPE: US OB limited DATE OF EXAM: 01/09/2018 COMPARISON: 01/06/2018 CLINICAL HISTORY: Pain. EXAM PERFORMED: Transabdominal (TA) GESTATIONAL AGE / DATING Physician Established: Not yet established No growth performed on today?s study per ordering physician SURVEY HEART RATE: 140 bpm RHYTHM: Normal IMPRESSION: Viable intrauterine .
[2018-01-09 17:28] LABS: Amorphous Sediment,Urine Rare /hpf; Appearance,Urine Cloudy (Clear); Bacteria,Urine Few /hpf; Bilirubin,Urine Negative (Negative); Blood,Urine Negative (Negative); Color,Urine Yellow; Glucose,Urine (UA) Negative (Negative); Ketones,Urine 3+ (Negative); Leukocyte Esterase,Urine Large (Negative); Mucus,Urine Moderate /hpf; Nitrite,Urine Negative (Negative); Protein,Urine Trace (Negative); RBC,Urine 8 /hpf (0-5); Specific Gravity,Urine 1.017 (1.001-1.035); Squamous Epithelial Cell,Urine 24 /hpf (0-4); WBC,Urine 23 /hpf (0-5)
[2018-01-09 18:21] VITALS: BP 112/58; PULSE 77; RESP 16
== END 2018-01-09 19:06 | disposition home or self-care (01) ==
LOC: EC 14:31
DX: O23.41 Unspecified infection of urinary tract in pregnancy, first trimester (principal); O21.9 Vomiting of pregnancy, unspecified; O99.89 Other specified diseases and conditions complicating pregnancy, childbirth and the puerperium; R07.9 Chest pain, unspecified; O24.410 Gestational diabetes mellitus in pregnancy, diet controlled; Z88.5 Allergy status to narcotic agent; Z79.899 Other long term (current) drug therapy; Z98.890 Other specified postprocedural states; Z3A.08 8 weeks gestation of pregnancy
CPT/HCPCS: 36415; 80053; 82150; 83690; 85025; 81001; 76815; 99284; 96365; 96375 ×2; 96361 ×3; J1200; J2765; J0696

== ENCOUNTER → 2018-01-11 | Outpatient (CLI) | payer OTHER ==
--- NOTE | 2018-01-12 07:32 | US ---
EXAMINATION TYPE: Transabdominal DATE OF EXAM: 07/11/17 COMPARISON: 01/09/2018 CLINICAL HISTORY: Z36 confirm dates. EXAM PERFORMED: Transabdominal (TA) EXAM MEASUREMENTS: GESTATIONAL AGE / DATING Physician Established: Not yet established Dates by LMP: (8 weeks/0 days) EDC: 08/23/18 Dates by First Scan: (7 weeks/4 days) EDC: 08/26/18 Dates by Current Scan for: (7 weeks/1 days) EDC: 08/29/18 MATERNAL ANATOMY Uterus: 6.7 x 5.5 x 7.7cm Right Ovary: 3.2 x 1.6 x 1.5cm Left Ovary: 2.4 x1.5 x 1.3 Post CDS / Adnexa: wnl GESTATION / SURVEY CRL: 1.1 (7 weeks/1 days) Yolk Sac (normal less than 6mm): 2mm Heart Rate: 148 bpm Rhythm: Normal IUP: Viable IUP Date of LMP: 11/16/17 Beta HcG (if available): Not available at this time IMPRESSION: Viable of 7 weeks 1 day with a heart rate of 148 bpm
== END | disposition home or self-care (01) ==
LOC: RADUSWWP 15:40
PROVIDERS: ATTEND Obstetrics & Gynecology
DX: Z36.89 Encounter for other specified antenatal screening (principal)
CPT/HCPCS: 76801

== ENCOUNTER 2018-04-04 09:07 | Emergency (ER) | payer OTHER ==
[2018-04-04] MEDS ORDERED: SODIUM CHLORIDE 0.9% 1,000 ML IV STA (09:23)
[2018-04-04] MEDS ORDERED: ACETAMINOPHEN TAB 500 MG TAB PO STA (09:24)
--- NOTE | 2018-04-04 09:26 | ED ---
Abdominal Pain HPI - General Chief Complaint: Abdominal Pain Stated Complaint: Abd Pain-19 wks Time Seen by Provider: 04/04/18 09:11 Source: patient, RN notes reviewed, old records reviewed Mode of arrival: ambulatory Limitations: no limitations - History of Present Illness Initial Comments: Patient is a 23-year-old female who presents emergency department today with chief complaint of diffuse abdominal pain starting at 2 PM yesterday. She reports it was not associated with eating. She reports that she has constant low generalized abdominal pain but then it comes in waves with more severe. She denies diarrhea , she did have one episode of vomiting. Patient states that she's had no fevers or chills. She denies any vaginal bleeding or discharge. Patient is a female. NATIONAL ACCOUNT REPRESENTATIVE is Dr. Galeana. - Related Data Home Medications Medication Instructions Recorded Confirmed Pnv No.95/Ferrous Fum/Folic AC 1 tab PO DAILY 01/06/18 04/04/18 [ Multivitamin Tablet] Acetaminophen Tab [Tylenol Tab] 650 mg PO Q4H PRN 04/04/18 04/04/18 Previous Rx's Medication Instructions Recorded Cephalexin [Keflex] 500 mg PO Q8HR #21 cap 04/04/18 Allergies Allergy/AdvReac Type Severity Reaction Status Date / Time codeine AdvReac Nausea & Verified 04/04/18 09:16 Vomiting Review of Systems ROS Statement: Those systems with pertinent positive or pertinent negative responses have been documented in the HPI. ROS Other: All systems not noted in ROS Statement are negative. Past Medical History Past Medical History: Syncope Additional Past Medical History / Comment(s): SYNCOPE; gestational diabetes diet controlled History of Any Multi-Drug Resistant Organisms: None Reported Additional Past Surgical History / Comment(s): KIDNEY SURGERY Past Anesthesia/Blood Transfusion Reactions: No Reported Reaction Past Psychological History: No Psychological Hx Reported Smoking Status: Never smoker Past Alcohol Use History: Occasional Past Drug Use History: None Reported - Past Family History Mother Family Medical History: No Reported History Brother(s) Additional Family Medical History / Comment(s): Autistic General Exam - General Exam Comments Initial Comments: 23-year-old female. Alert and oriented. Patient appears in no acute distress. General: Well appearing, well nourished, in no distress. Oriented x 3, normal mood and affect . Ambulating without difficulty. Skin: Good turgor, no rash, unusual bruising or prominent lesions Hair: Normal texture and distribution. HEENT: Head: Normocephalic, atraumatic, no visible or palpable masses, depressions, or scaring. Eyes: Visual acuity intact, conjunctiva clear, sclera non-icteric, EOM intact, PERRL. Ears: EACs clear, TMs translucent & cone of light visualized. hearing intact. Nose: No external lesions, mucosa non-inflamed, septum and turbinates normal Mouth: Mucous membranes moist, no mucosal lesions. Teeth/Gums: No obvious caries or periodontal disease. No gingival inflammation or significant resorption. Pharynx: Mucosa non-inflamed, no tonsillar hypertrophy or exudate Neck: Supple, without lesions, bruits, or adenopathy, thyroid non-enlarged and non-tender Heart: No cardiomegaly or thrills; regular rate and rhythm, no murmur or gallop Lungs: Clear to auscultation and percussion Abdomen: Bowel sounds normal, no tenderness, organomegaly, masses, or hernia Back: Spine normal without deformity or tenderness, no CVA tenderness Extremities: No amputations or deformities, cyanosis, edema or varicosities, peripheral pulses intact Musculoskeletal: Normal gait and station. No misalignment, asymmetry, crepitation, defects, tenderness, masses, effusions, decreased range of motion, instability, atrophy or abnormal strength or tone in the head, neck, spine, ribs , pelvis or extremities. Neurologic: CN 2-12 normal. Sensation to pain, touch, and proprioception normal. DTRs normal in upper and lower extremities. No pathologic reflexes. Psychiatric: Oriented X3, intact recent and remote memory, judgment and insight , normal mood and affect. Limitations: no limitations Course Vital Signs 04/04/18 04/04/18 09:09 10:30 Temperature 98 F Pulse Rate 111 H 96 Respiratory 16 18 Rate Blood Pressure 122/87 115/69 O2 Sat by Pulse 100 99 Oximetry Medical Decision Making - Medical Decision Making Patient is a 1 female with a few hours of diffuse abdominal pain. She is having no vaginal discharge and bleeding At this time. Heart tones were obtained and were 130 bpm. If she is no bleeding at this time. She denies any concern for vaginal discharge. At this time patient's urinalysis is positive for infection. She's had history of chronic urinary tract infections. Patient was treated in January for similar symptoms. At this time I'll give the Patient a dose of IV Rocephin and urine culture pending. Rest of her lab work was reviewed and unremarkable. Discussed at this time Patient will be discharged with Keflex prescription and close follow-up with primary care provider and NATIONAL ACCOUNT REPRESENTATIVE. - Lab Data Result diagrams: 04/04/18 09:35 04/04/18 09:35 Lab Results 04/04/18 04/04/18 04/04/18 Range/Units 09:35 09:35 09:35 WBC 7.2 (3.8-10.6) k/uL RBC 3.50 L (3.80-5.40) m/uL Hgb 10.8 L (11.4-16.0) gm/dL Hct 31.2 L (34.0-46.0) % MCV 89.2 (80.0-100.0) fL MCH 30.8 (25.0-35.0) pg MCHC 34.5 (31.0-37.0) g/dL RDW 14.9 (11.5-15.5) % Plt Count 197 (150-450) k/uL Neutrophils % 80 % Lymphocytes % 14 % Monocytes % 4 % Eosinophils % 1 % Basophils % 0 % Neutrophils # 5.8 (1.3-7.7) k/uL Lymphocytes # 1.0 (1.0-4.8) k/uL Monocytes # 0.3 (0-1.0) k/uL Eosinophils # 0.1 (0-0.7) k/uL Basophils # 0.0 (0-0.2) k/uL PT 9.6 (9.0-12.0) sec INR 0.9 (<1.2) APTT 23.2 (22.0-30.0) sec Sodium 139 (137-145) mmol/L Potassium 4.3 (3.5-5.1) mmol/L Chloride 108 H (98-107) mmol/L Carbon Dioxide 23 (22-30) mmol/L Anion Gap 8 mmol/L BUN 9 (7-17) mg/dL Creatinine 0.54 (0.52-1.04) mg/dL Est GFR (CKD-EPI)AfAm >90 (>60 ml/min/1.73 sqM) Est GFR (CKD-EPI)NonAf >90 (>60 ml/min/1.73 sqM) Glucose 91 (74-99) mg/dL Calcium 9.0 (8.4-10.2) mg/dL Total Bilirubin 1.2 (0.2-1.3) mg/dL AST 12 L (14-36) U/L ALT 17 (9-52) U/L Alkaline Phosphatase 71 (38-126) U/L Total Protein 6.8 (6.3-8.2) g/dL Albumin 3.6 (3.5-5.0) g/dL Amylase 31 (30-110) U/L Lipase 49 (23-300) U/L Urine Color Urine Appearance (Clear) Urine pH (5.0-8.0) Ur Specific [place] (1.001-1.035) Urine Protein (Negative) Urine Glucose (UA) (Negative) Urine Ketones (Negative) Urine Blood (Negative) Urine Nitrite (Negative) Urine Bilirubin (Negative) Urine Urobilinogen (<2.0) mg/dL Ur Leukocyte Esterase (Negative) Urine WBC (0-5) /hpf Urine WBC Clumps (None) /hpf Ur Squamous Epith Cells (0-4) /hpf Amorphous Sediment (None) /hpf Urine Bacteria (None) /hpf Urine Mucus (None) /hpf 04/04/18 Range/Units 09:35 WBC (3.8-10.6) k/uL RBC (3.80-5.40) m/uL Hgb (11.4-16.0) gm/dL Hct (34.0-46.0) % MCV (80.0-100.0) fL MCH (25.0-35.0) pg MCHC (31.0-37.0) g/dL RDW (11.5-15.5) % Plt Count (150-450) k/uL Neutrophils % % Lymphocytes % % Monocytes % % Eosinophils % % Basophils % % Neutrophils # (1.3-7.7) k/uL Lymphocytes # (1.0-4.8) k/uL Monocytes # (0-1.0) k/uL Eosinophils # (0-0.7) k/uL Basophils # (0-0.2) k/uL PT (9.0-12.0) sec INR (<1.2) APTT (22.0-30.0) sec Sodium (137-145) mmol/L Potassium (3.5-5.1) mmol/L Chloride (98-107) mmol/L Carbon Dioxide (22-30) mmol/L Anion Gap mmol/L BUN (7-17) mg/dL Creatinine (0.52-1.04) mg/dL Est GFR (CKD-EPI)AfAm (>60 ml/min/1.73 sqM) Est GFR (CKD-EPI)NonAf (>60 ml/min/1.73 sqM) Glucose (74-99) mg/dL Calcium (8.4-10.2) mg/dL Total Bilirubin (0.2-1.3) mg/dL AST (14-36) U/L ALT (9-52) U/L Alkaline Phosphatase (38-126) U/L Total Protein (6.3-8.2) g/dL Albumin (3.5-5.0) g/dL Amylase (30-110) U/L Lipase (23-300) U/L Urine Color Yellow Urine Appearance Turbid H (Clear) Urine pH 7.5 (5.0-8.0) Ur Specific [place] 1.014 (1.001-1.035) Urine Protein Trace H (Negative) Urine Glucose (UA) Negative (Negative) Urine Ketones Negative (Negative) Urine Blood Negative (Negative) Urine Nitrite Negative (Negative) Urine Bilirubin Negative (Negative) Urine Urobilinogen 3.0 (<2.0) mg/dL Ur Leukocyte Esterase Large H (Negative) Urine WBC 83 H (0-5) /hpf Urine WBC Clumps Occasional H (None) /hpf Ur Squamous Epith Cells 26 H (0-4) /hpf Amorphous Sediment Few H (None) /hpf Urine Bacteria Occasional H (None) /hpf Urine Mucus Rare H (None) /hpf Disposition Clinical Impression: UTI in Disposition: HOME SELF-CARE Condition: Good Instructions: Urinary Tract Infection in (ED) Additional Instructions: Patient has close follow up with primary care provider. Return to the emergency department if any alarming signs or symptoms occur. Prescriptions: Cephalexin [Keflex] 500 mg PO Q8HR #21 cap Is patient prescribed a controlled substance at d/c from ED?: No Referrals: Angelo Bales MD [Primary Care Provider] - 1-2 days Time of Disposition: 11:51
[2018-04-04 10:05] LABS: Amorphous Sediment,Urine Few /hpf; Appearance,Urine Turbid (Clear); Bacteria,Urine Occasional /hpf; Bilirubin,Urine Negative (Negative); Blood,Urine Negative (Negative); Color,Urine Yellow; Glucose,Urine (UA) Negative (Negative); Ketones,Urine Negative (Negative); Leukocyte Esterase,Urine Large (Negative); Mucus,Urine Rare /hpf; Nitrite,Urine Negative (Negative); PH, Urine 7.5 (5.0-8.0); Protein,Urine Trace (Negative); Specific Gravity,Urine 1.014 (1.001-1.035); Squamous Epithelial Cell,Urine 26 /hpf (0-4); WBC,Urine 83 /hpf (0-5)
[2018-04-04 10:06] LABS: ALT 17 U/L (9-52); AST 12 U/L (14-36); Albumin 3.6 g/dL (3.5-5.0); Alkaline Phosphatase 71 U/L (38-126); Amylase 31 U/L (30-110); Anion Gap 8 mmol/L; Blood Urea Nitrogen 9 mg/dL (7-17); Carbon Dioxide 23 mmol/L (22-30); Chloride 108 mmol/L (98-107); Glucose 91 mg/dL (74-99); INR 0.9 (<1.2); Lipase 49 U/L (23-300); Partial Thromboplastin Time 23.2 sec (22.0-30.0); Potassium 4.3 mmol/L (3.5-5.1); Prothrombin Time 9.6 sec (9.0-12.0); Sodium 139 mmol/L (137-145); Total Bilirubin 1.2 mg/dL (0.2-1.3); Total Protein 6.8 g/dL (6.3-8.2)
[2018-04-04 10:10] LABS: Basophils % (A) 0 %; Eosinophils # (A) 0.1 k/uL (0-0.7); Eosinophils % (A) 1 %; HCT 31.2 % (34.0-46.0); HGB 10.8 gm/dL (11.4-16.0); Lymphocytes % (A) 14 %; MCH 30.8 pg (25.0-35.0); MCHC 34.5 g/dL (31.0-37.0); MCV 89.2 fL (80.0-100.0); Mean Platelet Volume 6.5; Monocytes # (A) 0.3 k/uL (0-1.0); Monocytes % (A) 4 %; Neutrophils # (A) 5.8 k/uL (1.3-7.7); Neutrophils % (A) 80 %; Platelet Count 197 k/uL (150-450); RDW 14.9 % (11.5-15.5); WBC 7.2 k/uL (3.8-10.6)
[2018-04-04 10:39] VITALS: RESP 18
[2018-04-04 12:01] VITALS: BP 134/87; PULSE 87; TEMP 98.7
== END 2018-04-04 12:01 | disposition home or self-care (01) ==
LOC: EC 09:07
DX: O23.42 Unspecified infection of urinary tract in pregnancy, second trimester (principal); Z88.5 Allergy status to narcotic agent; Z3A.19 19 weeks gestation of pregnancy
CPT/HCPCS: 36415; 80053; 82150; 83690; 85025; 85610; 85730; 81001; 87086; 99284; 96365; 96361; J0696; 87077; 87186

== ENCOUNTER 2018-05-14 11:53 | Outpatient (CLI) | payer OTHER ==
[2018-05-14 13:16] VITALS: BP 113/65; RESP 18; TEMP 97.8
[2018-05-14 13:54] LABS: Color,Urine Yellow
[2018-05-14 13:55] LABS: Appearance,Urine Slightly Cloudy (Clear)
[2018-05-14 13:58] LABS: Squamous Epithelial Cell,Urine 25 /hpf (0-4); WBC,Urine 25 /hpf (0-5)
[2018-05-14 13:59] LABS: Bacteria,Urine Many /hpf; Specific Gravity,Urine 1.005 (1.001-1.035)
[2018-05-14 14:00] LABS: Bilirubin,Urine Negative (Negative); Blood,Urine Negative (Negative); Glucose,Urine (UA) Negative (Negative); Ketones,Urine Negative (Negative); Nitrite,Urine Negative (Negative); Protein,Urine Negative (Negative); Urobilinogen,Urine <2.0 mg/dL (<2.0)
[2018-05-14 14:01] LABS: Leukocyte Esterase,Urine Large (Negative)
[2018-05-14 14:29] VITALS: PULSE 95
--- NOTE | 2018-05-16 08:49 | P.MSEPDOC ---
Presenting Problems - Arrival Data Date of Arrival on Unit: 05/14/18 Time of Arrival on Unit: 12:15 Mode of Transport: Ambulatory - Complaint OB-Reason for Admission/Chief Complaint: Vaginal Bleeding Medical History - Information : 2 Para: 1 Term: 1 : 0 Abortions: Spontaneous or Elective: 0 Number of Living Children: 1 - Gestational Age Gestational Age by OTTO (wks/days): 25 Weeks and 4 Days Review of Systems - Review of Systems Constitutional: No problems Breast: No problems ENT: No problems Cardiovascular: No problems Respiratory: No problems Gastrointestinal: No problems Genitourinary: No problems Musculoskeletal: No problems Neurological: No problems Skin: No problems Vital Signs - Temperature Temperature: 97.8 F Temperature Source: Temporal Artery Scan - Pulse Right Brachial Pulse Rate: 95 Pulse Assessment Method: Automatic Cuff - Respirations Respiratory Rate: 18 - Blood Pressure Right Arm Blood Pressure: 113/65 Blood Pressure Mean: 81 Blood Pressure Source: Automatic Cuff Medical Screen Scoring (Pre) - Cervical Exam Dilation: Exam Deferred Effacement: Exam Deferred Membranes: Intact - Uterine Contractions Frequency: N/A Duration: N/A Intensity: N/A - Maternal Vital Signs Maternal Temperature: N/A Maternal Blood Pressure: N/A Signs of Preeclampsia: N/A Maternal Respirations: N/A - Pain Assessment Pain Scale Used: Numeric (1 - 10) Pain Intensity: 0 - Maternal Trauma Maternal Trauma: N/A - Assessment Baseline FHR: 125 Heart Rate - NICHD Category: Category I (Normal) = 0 Position: N/A Station: N/A - Total Score Total Score (Pre): 0 - Level of Risk Level of Risk: Low (0-5) Physician Notification (Pre) - Physician Notified Physician Notified Date: 05/14/18 Physician Notified Time: 13:10 Physician/Practitioner Notifed:: Dr Guerin Spoke With: Dr Guerin New Order Received: Yes Medical Screen Scoring (Post) - Cervical Exam Dilation: Exam Deferred Effacement: Exam Deferred Membranes: Intact - Uterine Contractions Frequency: N/A Duration: N/A Intensity: N/A - Maternal Vital Signs Maternal Temperature: N/A Maternal Blood Pressure: N/A Signs of Preeclampsia: N/A Maternal Respirations: N/A - Maternal Trauma Maternal Trauma: N/A - Assessment Heart Rate: 125 Heart Rate - NICHD Category: Category I (Normal) = 0 Position: N/A Station: N/A - Total Score Total Score (Post): 0 - Post Treatment Level of Risk Post Treatment Level of Risk: Low (0-5) Physician Notification (Post) - Physician Notified Physician Notified Date: 05/14/18 Physician Notified Time: 14:27 Physician/Practitioner Notified:: Dr Guerin Spoke With: Dr Guerin New Order Received: Yes - Notification Comment Comment: D/C Home Disposition - Disposition OB Disposition: Discharge to home Discharge Date: 05/14/18 Discharge Time: 14:30 I agree with the RN Medical Screening Exam: Yes Risk & Benefit of care provided described in d/c instruction: Yes Diagnosis: URINARY TRACT INFECTION, SITE NOT SPECIFIED
== END 2018-05-14 14:30 | disposition home or self-care (01) ==
LOC: FBPOP 11:53
PROVIDERS: ATTEND Obstetrics & Gynecology
DX: O23.42 Unspecified infection of urinary tract in pregnancy, second trimester (principal); Z3A.25 25 weeks gestation of pregnancy
CPT/HCPCS: 81001; G0463; 99213

== ENCOUNTER → 2018-05-23 | Outpatient (CLI) | payer OTHER ==
[2018-05-23 11:30] LABS: HCT 31.4 % (34.0-46.0); HGB 10.7 gm/dL (11.4-16.0); MCH 31.3 pg (25.0-35.0); MCV 91.9 fL (80.0-100.0); Mean Platelet Volume 6.6; Platelet Count 198 k/uL (150-450); RBC 3.42 m/uL (3.80-5.40); RDW 13.7 % (11.5-15.5); WBC 6.5 k/uL (3.8-10.6)
== END | disposition home or self-care (01) ==
LOC: LABWHC1 10:01
PROVIDERS: ATTEND Obstetrics & Gynecology
DX: Z34.82 Encounter for supervision of other normal pregnancy, second trimester (principal); Z3A.00 Weeks of gestation of pregnancy not specified
CPT/HCPCS: 36415; 82950; 85027; 86900; 86901

== ENCOUNTER 2018-08-03 20:11 | Outpatient (CLI) | payer OTHER ==
[2018-08-03 20:32] VITALS: BP 142/92; PULSE 86; RESP 16; TEMP 97.3
--- NOTE | 2018-08-04 08:57 | P.MSEPDOC ---
Presenting Problems - Arrival Data Date of Arrival on Unit: 08/03/18 Time of Arrival on Unit: 20:11 Mode of Transport: Ambulatory - Complaint OB-Reason for Admission/Chief Complaint: Unknown Medical History - Information : 2 Para: 1 Term: 1 : 0 Abortions: Spontaneous or Elective: 0 Number of Living Children: 1 - Gestational Age Gestational Age by OTTO (wks/days): 37 Weeks and 1 Days Review of Systems - Review of Systems Constitutional: No problems Breast: No problems ENT: No problems Cardiovascular: No problems Respiratory: No problems Gastrointestinal: No problems Genitourinary: No problems Musculoskeletal: No problems Neurological: No problems Skin: No problems Vital Signs - Temperature Temperature: 97.3 F Temperature Source: Temporal Artery Scan - Pulse Pulse Oximetery Pulse Rate: 86 Pulse Assessment Method: Automatic Cuff - Respirations Respiratory Rate: 16 Oxygen Delivery Method: Room Air - Blood Pressure Sitting Blood Pressure: 142/92 Blood Pressure Mean: 108 Blood Pressure Source: Automatic Cuff Medical Screen Scoring (Pre) - Cervical Exam Dilation: Exam Deferred Effacement: Exam Deferred Membranes: Intact - Uterine Contractions Frequency: N/A Duration: N/A Intensity: N/A - Maternal Vital Signs Maternal Temperature: N/A Maternal Blood Pressure: N/A Signs of Preeclampsia: N/A Maternal Respirations: N/A - Pain Assessment Pain Scale Used: Numeric (1 - 10) Pain Intensity: 0 - Maternal Trauma Maternal Trauma: N/A - Assessment Baseline FHR: 125 Heart Rate - NICHD Category: Category I (Normal) = 0 NST: Reactive Position: N/A Station: N/A - Total Score Total Score (Pre): 0 - Level of Risk Level of Risk: Low (0-5) Physician Notification (Pre) - Physician Notified Physician Notified Date: 08/03/18 Physician Notified Time: 20:48 Physician/Practitioner Notifed:: Dr. Guerin New Order Received: Yes - Notification Comment Comment: Discharge patient home with instructions patient to keep regularly scheduled appt for 08/07 Disposition - Disposition OB Disposition: Discharge to home Discharge Date: 08/03/18 Discharge Time: 20:50 I agree with the RN Medical Screening Exam: Yes Risk & Benefit of care provided described in d/c instruction: Yes Diagnosis: DECREASED MOVEMENTS, THIRD TRIMESTER, FETUS 1
== END 2018-08-03 20:50 | disposition home or self-care (01) ==
LOC: FBPOP 20:11
PROVIDERS: ATTEND Obstetrics & Gynecology
DX: O36.8131 Decreased fetal movements, third trimester, fetus 1 (principal); Z3A.37 37 weeks gestation of pregnancy
CPT/HCPCS: 59025; 84112; G0463; 99213

== ENCOUNTER 2018-08-16 06:00 | Inpatient (IN) | payer BC, OTHER ==
[2018-08-16] MEDS ORDERED: CARBOPROST TROMETHAMINE 250 MCG/ML 1 ML AMP IM PRN (06:42)
[2018-08-16] MEDS ORDERED: TERBUTALINE 1 MG/ML VIAL SQ PRN (06:42)
[2018-08-16] MEDS ORDERED: METHYLERGONOVINE 0.2 MG/ML 1 ML AMP IM PRN (06:42)
[2018-08-16] MEDS ORDERED: LIDOCAINE 0.5% (PF) 5 MG/ML (50 ML SDV) SQ PRN (06:42)
[2018-08-16] MEDS ORDERED: OXYTOCIN 10 UNIT/ML 1 ML VIAL IM PRN (06:42)
[2018-08-16] MEDS ORDERED: OXYTOCIN 30 UNITS/500 ML NS 30 UNIT in SALINE 1 500ML.BAG IV SCH (06:45)
[2018-08-16 06:49] VITALS: BMI 27.1
[2018-08-16] MEDS: LACTATED RINGERS 1,000 ML IV SCH ×2 (06:50→10:57)
[2018-08-16 07:17] LABS: Basophils % (A) 0 %; Eosinophils # (A) 0.1 k/uL (0-0.7); Eosinophils % (A) 1 %; HCT 33.9 % (34.0-46.0); HGB 11.5 gm/dL (11.4-16.0); Lymphocytes # (A) 1.5 k/uL (1.0-4.8); Lymphocytes % (A) 22 %; MCH 29.3 pg (25.0-35.0); MCV 86.2 fL (80.0-100.0); Mean Platelet Volume 8.4; Monocytes # (A) 0.4 k/uL (0-1.0); Monocytes % (A) 5 %; Neutrophils # (A) 4.8 k/uL (1.3-7.7); Neutrophils % (A) 69 %; Platelet Count 229 k/uL (150-450); RBC 3.94 m/uL (3.80-5.40); RDW 15.1 % (11.5-15.5)
[2018-08-16] MEDS ORDERED: ROPIVACAINE 100 MG, fentaNYL (PF) 200 MCG in SODIUM CHLORIDE 0.9% 76 ML EPIDURAL ONE (11:17)
[2018-08-16] MEDS ORDERED: diphenhydrAMINE 25 MG CAP PO PRN (12:14)
[2018-08-16] MEDS ORDERED: ZOLPIDEM 5 MG TAB PO PRN (12:14)
[2018-08-16] MEDS ORDERED: HYDROcodone/APAP 5-325MG 1 EACH TAB PO PRN (12:14)
[2018-08-16] MEDS ORDERED: IBUPROFEN 600 MG TAB PO PRN (12:14)
[2018-08-16] MEDS ORDERED: diphenhydrAMINE 50 MG/ML 1 ML VIAL IVP PRN ×2 (12:14)
[2018-08-16] MEDS ORDERED: diphenhydrAMINE 50 MG CAP PO PRN (12:14)
[2018-08-16] MEDS ORDERED: LANOLIN CREAM 5 GM TUBE TOPICAL PRN (12:14)
[2018-08-16] MEDS ORDERED: HYDROCORTISONE 2.5% RECTAL CREAM 30 GM TUBE RECTAL PRN (12:14)
[2018-08-16] MEDS ORDERED: WITCH HAZEL 1 EACH MED..PAD TOPICAL PRN (12:14)
[2018-08-16] MEDS ORDERED: BENZOCAINE/MENTHOL SPRAY 1 GM/SPRAY AEROSOL TOPICAL PRN (12:14)
[2018-08-16] MEDS ORDERED: ACETAMINOPHEN TAB 325 MG TAB PO PRN (12:14)
[2018-08-16] MEDS ORDERED: SIMETHICONE 80 MG CHEWABLE PO PRN (12:14)
[2018-08-16] MEDS ORDERED: OXYTOCIN 20 UNITS/1000 ML NS 1,000 ML IV SCH (12:15)
--- NOTE | 2018-08-16 12:19 | P.HPOB ---
History of Present Illness H&P Date: 08/16/18 Chief Complaint: Intrauterine at term: Induction of labor Leno is a 23-year-old at 39 weeks gestation arise for induction of labor. Her course course was unremarkable other than decreased movement late in the . She had been measuring somewhat small for dates and ultrasounds were done to verify adequate growth. was done when needed. Her first was complicated by by gestational diabetes but she is had no issues with her blood sugars during this On physical exam vital signs are stable and afebrile. Heart regular, lungs clear, extremities are without pain. Abdomen soft and nonten cristian. Positive bowel sounds are noted. She was dilated to approximate 3 cm 80% effaced -3 station, artificial rupture membranes was performed and clear fluid is noted. All other questions are answered for her at this time she is doing well at this time. Plan epidural for analgesia. Past Medical History Past Medical History: Syncope Additional Past Medical History / Comment(s): SYNCOPE; gestational diabetesdiet controlled previous History of Any Multi-Drug Resistant Organisms: None Reported Additional Past Surgical History / Comment(s): KIDNEY SURGERY Past Anesthesia/Blood Transfusion Reactions: No Reported Reaction Past Psychological History: No Psychological Hx Reported Smoking Status: Never smoker Past Alcohol Use History: None Reported, Occasional Past Drug Use History: None Reported - Past Family History Mother Family Medical History: No Reported History Brother(s) Additional Family Medical History / Comment(s): Autistic Medications and Allergies Home Medications Medication Instructions Recorded Confirmed Type No Known Home Medications 08/03/18 08/03/18 History Allergies Allergy/AdvReac Type Severity Reaction Status Date / Time codeine AdvReac Nausea & Verified 08/16/18 06:42 Vomiting Exam Osteopathic Statement: *. No significant issues noted on an osteopathic structural exam other than those noted in the History and Physical/Consult. Vital Signs Temp Pulse Resp BP 08/16/18 06:42 97.0 F L 112 H 16 132/90 Intake and Output 08/15/18 08/16/18 08/16/18 22:59 06:59 14:59 Other: Weight 65.317 kg Results Result Diagrams: 08/16/18 06:58 Abnormal Lab Results - Last 24 Hours (Table) 08/16/18 Range/Units 06:58 Hct 33.9 L (34.0-46.0) %
--- NOTE | 2018-08-16 12:21 | P.PROBDLV ---
Vaginal Delivery Note - . Vaginal Delivery Note: Patient progressed to complete and pushing with spontaneous vaginal delivery of a viable male over a first-degree perineal laceration. Once baby's head was delivered, anterior posterior shoulders were easily delivered following reduction of nuchal cord 2. Once baby was fully delivered mouth nares were bulb suctioned and baby was placed on mother's abdomen where the umbilical cord was allowed to pulsate for 1 minute prior to clamping and cutting. Nursery personnel was present to assume care. Placenta was then delivered intact. Pitocin was added to the IV. scores were 8 and 9 at one and 5 minutes respectively and weight was 5 lbs. 10 oz. First repair ligament laceration was repaired with 3-0 Vicryl. Both mother and baby are stable following delivery.
[2018-08-16] MEDS ORDERED: Rhogam IMMUNE GLOBULIN 1,500 UNIT/1 ML IM ONE (15:54)
[2018-08-16] MEDS: SENNOSIDES-DOCUSATE SODIUM 1 EACH TAB PO SCH (21:23)
[2018-08-17 06:58] LABS: Basophils % (A) 0 %; Eosinophils # (A) 0.1 k/uL (0-0.7); Eosinophils % (A) 1 %; HCT 29.9 % (34.0-46.0); Lymphocytes # (A) 1.6 k/uL (1.0-4.8); Lymphocytes % (A) 23 %; MCH 28.4 pg (25.0-35.0); MCHC 32.9 g/dL (31.0-37.0); MCV 86.3 fL (80.0-100.0); Mean Platelet Volume 7.9; Monocytes # (A) 0.4 k/uL (0-1.0); Monocytes % (A) 5 %; Neutrophils # (A) 4.8 k/uL (1.3-7.7); Neutrophils % (A) 68 %; Platelet Count 163 k/uL (150-450); Poikilocytosis Slight; RBC 3.46 m/uL (3.80-5.40); RDW 15.6 % (11.5-15.5); WBC 7.1 k/uL (3.8-10.6)
[2018-08-17 07:05] LABS: HGB 9.8 gm/dL (11.4-16.0)
[2018-08-17] MEDS: SENNOSIDES-DOCUSATE SODIUM 1 EACH TAB PO SCH (07:52)
[2018-08-17 08:39] VITALS: BP 127/82; PULSE 89; RESP 16; TEMP 98.4
--- NOTE | 2018-08-17 08:39 | P.DS ---
Providers Date of admission: 08/16/18 06:30 Expected date of discharge: 08/17/18 Attending physician: Jose Guerin Primary care physician: Stated None Hospital Course: Leno is doing very well post day 1. She is ambulating, voiding, tolerating her diet. She voices no complaints. Vital signs are stable and afebrile. Heart regular, lungs clear, extremities without pain. Her lochia is reported be light and her abdomen is soft with firm uterus. Assessment day 1. Plan discharged home follow up with me in 6 weeks. Discharge instructions were thoroughly reviewed and all questions are answered for her prior to her discharge. She is stable for discharge at this time. Patient Condition at Discharge: Good Plan - Discharge Summary Discharge Rx Participant: No New Discharge Prescriptions: No Action No Known Home Medications Discharge Medication List No Known Home Medications 08/03/18 [History] Follow up Appointment(s)/Referral(s): Jose Guerin DO [Doctor of Osteopathic Medicine] - 6 Weeks Activity/Diet/Wound Care/Special Instructions: No heavy lifting, limit stairs and driving, and pelvic rest. If any high temperatures, heavy bleeding, or severe pain call my office Discharge Disposition: HOME SELF-CARE
== END 2018-08-17 16:20 | disposition home or self-care (01) | DRG 807 ==
LOC: 4FBP 06:30
PROVIDERS: ADMIT Obstetrics & Gynecology; ATTEND Obstetrics & Gynecology
PROC: 10E0XZZ Delivery of Products of Conception, External Approach (ICD-10-PCS; principal; 2018-08-16)
PROC: 0HQ9XZZ Repair Perineum Skin, External Approach (ICD-10-PCS; 2018-08-16)
DX: O70.0 First degree perineal laceration during delivery (principal); Z37.0 Single live birth; O69.81X0 Labor and delivery complicated by cord around neck, without compression, not applicable or unspecified; Z3A.39 39 weeks gestation of pregnancy; Z98.890 Other specified postprocedural states; Z88.5 Allergy status to narcotic agent
CPT/HCPCS: 85025; 85461; 86850; 86870; 86880; 86900; 86901

== ENCOUNTER 2018-10-21 11:05 | Emergency (ER) | payer BC, OTHER ==
[2018-10-21 11:28] VITALS: RESP 18
[2018-10-21] MEDS ORDERED: SODIUM CHLORIDE 0.9% 2,000 ML IV STA (11:35)
[2018-10-21 12:23] LABS: Basophils % (A) 0 %; Eosinophils % (A) 0 %; HCT 30.9 % (34.0-46.0); HGB 10.7 gm/dL (11.4-16.0); Lymphocytes # (A) 0.4 k/uL (1.0-4.8); Lymphocytes % (A) 5 %; MCH 28.7 pg (25.0-35.0); MCHC 34.6 g/dL (31.0-37.0); MCV 82.9 fL (80.0-100.0); Mean Platelet Volume 8.8; Monocytes # (A) 0.6 k/uL (0-1.0); Monocytes % (A) 7 %; Neutrophils # (A) 6.9 k/uL (1.3-7.7); Neutrophils % (A) 86 %; Platelet Count 128 k/uL (150-450); RBC 3.73 m/uL (3.80-5.40); RDW 14.4 % (11.5-15.5)
[2018-10-21 12:26] LABS: Appearance,Urine Turbid (Clear); Bacteria,Urine Many /hpf; Bilirubin,Urine Negative (Negative); Blood,Urine Small (Negative); Color,Urine Yellow; Glucose,Urine (UA) Negative (Negative); Ketones,Urine 1+ (Negative); Leukocyte Esterase,Urine Large (Negative); Mucus,Urine Many /hpf; Nitrite,Urine Positive (Negative); Protein,Urine 2+ (Negative); RBC,Urine 38 /hpf (0-5); Specific Gravity,Urine 1.019 (1.001-1.035); Squamous Epithelial Cell,Urine 44 /hpf (0-4)
[2018-10-21 12:35] LABS: ALT 103 U/L (9-52); AST 72 U/L (14-36); African American GFR (CKD) >90 (>60 ml/min/1.73 sqM); Albumin 4.1 g/dL (3.5-5.0); Alkaline Phosphatase 103 U/L (38-126); Anion Gap 12 mmol/L; Blood Urea Nitrogen 13 mg/dL (7-17); Calcium 8.9 mg/dL (8.4-10.2); Carbon Dioxide 21 mmol/L (22-30); Chloride 108 mmol/L (98-107); Glucose 111 mg/dL (74-99); Lipase 25 U/L (23-300); Potassium 3.7 mmol/L (3.5-5.1); Sodium 141 mmol/L (137-145); Total Bilirubin 1.3 mg/dL (0.2-1.3); Total Protein 7.2 g/dL (6.3-8.2)
[2018-10-21] MEDS ORDERED: ACETAMINOPHEN TAB 500 MG TAB PO STA (12:45)
[2018-10-21] MEDS ORDERED: KETOROLAC 30 MG/ML 1 ML VIAL IVP STA (12:45)
[2018-10-21] MEDS ORDERED: cefTRIAXone IN SWFI 1,000 MG/10 ML SYRINGE IVP STA (12:45)
--- NOTE | 2018-10-21 13:00 | ED ---
Abdominal Pain HPI - General Chief Complaint: Abdominal Pain Stated Complaint: Abd pain Time Seen by Provider: 10/21/18 11:33 Source: patient, family, RN notes reviewed Mode of arrival: ambulatory Limitations: no limitations - History of Present Illness Initial Comments: 23-year-old female presented emergency department for abdominal pain, fever, not feeling well. Patient states started a few days ago. Denies any nausea vomiting diarrhea constipation she states she has no dysuria but does have mild urinary frequency is not taking any recent Tylenol Motrin. Patient denies any cough, urinary symptoms no chest pain or shortness of breath. Patient denies any chance . - Related Data Previous Rx's Medication Instructions Recorded Ciprofloxacin HCl [Cipro] 500 mg PO Q12HR #20 tablet 10/21/18 Ibuprofen [Motrin] 600 mg PO Q8HR PRN #30 tab 10/21/18 Allergies Allergy/AdvReac Type Severity Reaction Status Date / Time codeine AdvReac Nausea & Verified 08/16/18 06:42 Vomiting Review of Systems ROS Statement: Those systems with pertinent positive or pertinent negative responses have been documented in the HPI. ROS Other: All systems not noted in ROS Statement are negative. Past Medical History Past Medical History: Syncope Additional Past Medical History / Comment(s): SYNCOPE; gestational diabetesdiet controlled previous History of Any Multi-Drug Resistant Organisms: None Reported Additional Past Surgical History / Comment(s): KIDNEY SURGERY Past Anesthesia/Blood Transfusion Reactions: No Reported Reaction Past Psychological History: No Psychological Hx Reported Smoking Status: Never smoker Past Alcohol Use History: Occasional Past Drug Use History: Marijuana, Prescription Drug Abuse - Past Family History Mother Family Medical History: No Reported History Brother(s) Additional Family Medical History / Comment(s): Autistic General Exam Limitations: no limitations General appearance: alert, in no apparent distress Head exam: Present: atraumatic, normocephalic, normal inspection Eye exam: Present: normal appearance, PERRL, EOMI. Absent: scleral icterus, conjunctival injection, periorbital swelling ENT exam: Present: normal exam, normal oropharynx, mucous membranes moist, TM's normal bilaterally, normal external ear exam Neck exam: Present: normal inspection, full ROM. Absent: tenderness, meningismus, lymphadenopathy Respiratory exam: Present: normal lung sounds bilaterally. Absent: respiratory distress, wheezes, rales, rhonchi, stridor Cardiovascular Exam: Present: normal rhythm, tachycardia, normal heart sounds. Absent: systolic murmur, diastolic murmur, rubs, gallop, clicks GI/Abdominal exam: Present: soft, tenderness, normal bowel sounds. Absent: distended, guarding, rebound, rigid Back exam: Present: CVA tenderness (R), CVA tenderness (L) Neurological exam: Present: alert, oriented X3, CN II-XII intact Skin exam: Present: warm, dry, intact, normal color. Absent: rash Course Vital Signs 10/21/18 10/21/18 11:24 13:28 Temperature 102.3 F H 99.5 F Pulse Rate 136 H 108 H Respiratory 18 18 Rate Blood Pressure 116/71 118/75 O2 Sat by Pulse 98 99 Oximetry Medical Decision Making - Medical Decision Making 23-year-old female presented for fever, flank pain. Patient had lab work, urinalysis. Patient has pyelonephritis. Patient is improved at this time vitals are stable and improved from triage. Patient we discharged on ciprofloxacin. Patient will follow-up with PCP and return for any worsening symptoms. - Lab Data Result diagrams: 10/21/18 12:04 10/21/18 12:04 Lab Results 10/21/18 10/21/18 10/21/18 Range/Units 12:04 12:04 12:04 WBC 8.0 (3.8-10.6) k/uL RBC 3.73 L (3.80-5.40) m/uL Hgb 10.7 L (11.4-16.0) gm/dL Hct 30.9 L (34.0-46.0) % MCV 82.9 (80.0-100.0) fL MCH 28.7 (25.0-35.0) pg MCHC 34.6 (31.0-37.0) g/dL RDW 14.4 (11.5-15.5) % Plt Count 128 L (150-450) k/uL Neutrophils % 86 % Lymphocytes % 5 % Monocytes % 7 % Eosinophils % 0 % Basophils % 0 % Neutrophils # 6.9 (1.3-7.7) k/uL Lymphocytes # 0.4 L (1.0-4.8) k/uL Monocytes # 0.6 (0-1.0) k/uL Eosinophils # 0.0 (0-0.7) k/uL Basophils # 0.0 (0-0.2) k/uL Sodium 141 (137-145) mmol/L Potassium 3.7 (3.5-5.1) mmol/L Chloride 108 H (98-107) mmol/L Carbon Dioxide 21 L (22-30) mmol/L Anion Gap 12 mmol/L BUN 13 (7-17) mg/dL Creatinine 0.64 (0.52-1.04) mg/dL Est GFR (CKD-EPI)AfAm >90 (>60 ml/min/1.73 sqM) Est GFR (CKD-EPI)NonAf >90 (>60 ml/min/1.73 sqM) Glucose 111 H (74-99) mg/dL Plasma Lactic Acid Gregg (0.7-2.0) mmol/L Calcium 8.9 (8.4-10.2) mg/dL Total Bilirubin 1.3 (0.2-1.3) mg/dL AST 72 H (14-36) U/L ALT 103 H (9-52) U/L Alkaline Phosphatase 103 (38-126) U/L Total Protein 7.2 (6.3-8.2) g/dL Albumin 4.1 (3.5-5.0) g/dL Lipase 25 (23-300) U/L Urine Color Yellow Urine Appearance Turbid H (Clear) Urine pH 6.0 (5.0-8.0) Ur Specific Wiley 1.019 (1.001-1.035) Urine Protein 2+ H (Negative) Urine Glucose (UA) Negative (Negative) Urine Ketones 1+ H (Negative) Urine Blood Small H (Negative) Urine Nitrite Positive H (Negative) Urine Bilirubin Negative (Negative) Urine Urobilinogen 3.0 (<2.0) mg/dL Ur Leukocyte Esterase Large H (Negative) Urine RBC 38 H (0-5) /hpf Urine WBC >182 H (0-5) /hpf Urine WBC Clumps Many H (None) /hpf Ur Squamous Epith Cells 44 H (0-4) /hpf Urine Bacteria Many H (None) /hpf Urine Mucus Many H (None) /hpf Urine HCG, Qual (Not Detectd) 10/21/18 10/21/18 Range/Units 12:04 12:04 WBC (3.8-10.6) k/uL RBC (3.80-5.40) m/uL Hgb (11.4-16.0) gm/dL Hct (34.0-46.0) % MCV (80.0-100.0) fL MCH (25.0-35.0) pg MCHC (31.0-37.0) g/dL RDW (11.5-15.5) % Plt Count (150-450) k/uL Neutrophils % % Lymphocytes % % Monocytes % % Eosinophils % % Basophils % % Neutrophils # (1.3-7.7) k/uL Lymphocytes # (1.0-4.8) k/uL Monocytes # (0-1.0) k/uL Eosinophils # (0-0.7) k/uL Basophils # (0-0.2) k/uL Sodium (137-145) mmol/L Potassium (3.5-5.1) mmol/L Chloride (98-107) mmol/L Carbon Dioxide (22-30) mmol/L Anion Gap mmol/L BUN (7-17) mg/dL Creatinine (0.52-1.04) mg/dL Est GFR (CKD-EPI)AfAm (>60 ml/min/1.73 sqM) Est GFR (CKD-EPI)NonAf (>60 ml/min/1.73 sqM) Glucose (74-99) mg/dL Plasma Lactic Acid Gregg 1.3 (0.7-2.0) mmol/L Calcium (8.4-10.2) mg/dL Total Bilirubin (0.2-1.3) mg/dL AST (14-36) U/L ALT (9-52) U/L Alkaline Phosphatase (38-126) U/L Total Protein (6.3-8.2) g/dL Albumin (3.5-5.0) g/dL Lipase (23-300) U/L Urine Color Urine Appearance (Clear) Urine pH (5.0-8.0) Ur Specific Wiley (1.001-1.035) Urine Protein (Negative) Urine Glucose (UA) (Negative) Urine Ketones (Negative) Urine Blood (Negative) Urine Nitrite (Negative) Urine Bilirubin (Negative) Urine Urobilinogen (<2.0) mg/dL Ur Leukocyte Esterase (Negative) Urine RBC (0-5) /hpf Urine WBC (0-5) /hpf Urine WBC Clumps (None) /hpf Ur Squamous Epith Cells (0-4) /hpf Urine Bacteria (None) /hpf Urine Mucus (None) /hpf Urine HCG, Qual Not Detected (Not Detectd) Disposition Clinical Impression: Pyelonephritis Disposition: HOME SELF-CARE Condition: Stable Instructions (If sedation given, give patient instructions): Kidney Infection (ED) Additional Instructions: Please return to the Emergency Department if symptoms worsen or any other c oncerns. Prescriptions: Ciprofloxacin HCl [Cipro] 500 mg PO Q12HR #20 tablet Ibuprofen [Motrin] 600 mg PO Q8HR PRN #30 tab PRN Reason: Pain Is patient prescribed a controlled substance at d/c from ED?: No Referrals: None,Stated [Primary Care Provider] - 1-2 days Time of Disposition: 14:03
[2018-10-21 13:50] VITALS: BP 118/75; PULSE 108; TEMP 99.5
== END 2018-10-21 14:35 | disposition home or self-care (01) ==
LOC: EC 11:05
DX: N12 Tubulo-interstitial nephritis, not specified as acute or chronic (principal); R00.0 Tachycardia, unspecified; Z88.5 Allergy status to narcotic agent
CPT/HCPCS: 36415; 80053; 83605; 83690; 85025; 81001; 81025; 87086; 99284; 96374; 96375; 96361 ×2; J0696; J1885; 87077; 87186

== ENCOUNTER 2018-10-21 22:50 | Inpatient (IN) | payer OTHER ==
[2018-10-21] MEDS ORDERED: ACETAMINOPHEN TAB 500 MG TAB PO STA (23:28)
[2018-10-21] MEDS: SODIUM CHLORIDE 0.9% 500 ML 500 ML IV SCH (23:57)
[2018-10-22] MEDS ORDERED: IBUPROFEN IV 600 MG in SODIUM CHLORIDE 0.9% 250 ML IV ONE ×2
[2018-10-22 00:18] LABS: Basophils % (A) 0 %; Eosinophils # (A) 0.1 k/uL (0-0.7); Eosinophils % (A) 1 %; HCT 29.9 % (34.0-46.0); HGB 10.3 gm/dL (11.4-16.0); Lymphocytes # (A) 0.3 k/uL (1.0-4.8); Lymphocytes % (A) 6 %; MCH 28.9 pg (25.0-35.0); MCHC 34.6 g/dL (31.0-37.0); MCV 83.5 fL (80.0-100.0); Mean Platelet Volume 7.9; Monocytes # (A) 0.4 k/uL (0-1.0); Monocytes % (A) 7 %; Neutrophils # (A) 4.3 k/uL (1.3-7.7); Neutrophils % (A) 84 %; Platelet Count 113 k/uL (150-450); RBC 3.58 m/uL (3.80-5.40); RDW 14.1 % (11.5-15.5); WBC 5.1 k/uL (3.8-10.6)
[2018-10-22 00:20] LABS: ALT 94 U/L (9-52); AST 70 U/L (14-36); African American GFR (CKD) >90 (>60 ml/min/1.73 sqM); Albumin 3.8 g/dL (3.5-5.0); Alkaline Phosphatase 96 U/L (38-126); Anion Gap 10 mmol/L; Blood Urea Nitrogen 15 mg/dL (7-17); Calcium 8.9 mg/dL (8.4-10.2); Carbon Dioxide 21 mmol/L (22-30); Chloride 108 mmol/L (98-107); Glucose 117 mg/dL (74-99); Potassium 3.9 mmol/L (3.5-5.1); Sodium 139 mmol/L (137-145); Total Bilirubin 1.5 mg/dL (0.2-1.3); Total Protein 6.7 g/dL (6.3-8.2)
[2018-10-22] MEDS: SODIUM CHLORIDE 0.9% 500 ML 500 ML IV SCH (00:25)
[2018-10-22] MEDS ORDERED: NALOXONE 0.4 MG/ML 1 ML VIAL IV PRN (00:34)
[2018-10-22] MEDS ORDERED: IBUPROFEN 400 MG TAB PO PRN (00:34)
[2018-10-22] MEDS ORDERED: MORPHINE SULFATE 4 MG/ML SYRINGE IV PRN (00:34)
--- NOTE | 2018-10-22 00:34 | ED ---
General Adult HPI - General Source: patient, family, RN notes reviewed, old records reviewed Mode of arrival: ambulatory Limitations: no limitations <Bibi Mathur - Last Filed: 10/22/18 00:30> <Giselle Slade - Last Filed: 10/22/18 07:29> - General Chief complaint: Nausea/Vomiting/Diarrhea Stated complaint: Revisit dx Kidney Infection Time Seen by Provider: 10/21/18 23:09 - History of Present Illness Initial comments: Patient is a 23-year-old female who presents emergency Department today for reevaluation with complaining of severe fever, chills and vomiting. She was seen in the emergency department earlier today and diagnosed with pyelonephritis. She states she's been unable to hold down her medications. Patient arrives to the emergency department with a fever of 104.1. Patient states that she has had a history of kidney infections and she was a child. She does report that when she is 11 years old she had surgery on her kidneys and ureters. Patient does not know exactly what this was. Patient states that she's had symptoms of fever for the past few days, and then started to develop some flank pain and mid abdominal pain. (Bibi Mathur) - Related Data Home Medications Medication Instructions Recorded Confirmed No Known Home Medications 10/22/18 10/22/18 Allergies Allergy/AdvReac Type Severity Reaction Status Date / Time codeine AdvReac Nausea & Verified 10/22/18 07:05 Vomiting Review of Systems ROS Other: All systems not noted in ROS Statement are negative. <Bibi Mathur - Last Filed: 10/22/18 00:30> ROS Other: All systems not noted in ROS Statement are negative. <Giselle Slade - Last Filed: 10/22/18 07:29> ROS Statement: Those systems with pertinent positive or pertinent negative responses have been documented in the HPI. Past Medical History Past Medical History: Syncope Additional Past Medical History / Comment(s): SYNCOPE; gestational diabetesdiet controlled previous History of Any Multi-Drug Resistant Organisms: None Reported Additional Past Surgical History / Comment(s): KIDNEY SURGERY Past Anesthesia/Blood Transfusion Reactions: No Reported Reaction Past Psychological History: No Psychological Hx Reported Smoking Status: Never smoker Past Alcohol Use History: Occasional Past Drug Use History: Marijuana, Prescription Drug Abuse - Past Family History Mother Family Medical History: No Reported History Brother(s) Additional Family Medical History / Comment(s): Autistic <Bibi Mathur - Last Filed: 10/22/18 00:30> General Exam Limitations: no limitations General appearance: alert, in no apparent distress Head exam: Present: atraumatic, normocephalic, normal inspection Eye exam: Present: normal appearance, PERRL, EOMI. Absent: scleral icterus, conjunctival injection, periorbital swelling ENT exam: Present: normal exam, mucous membranes moist Neck exam: Present: normal inspection Respiratory exam: Present: normal lung sounds bilaterally Cardiovascular Exam: Present: regular rate, normal rhythm, normal heart sounds. Absent: systolic murmur, diastolic murmur, rubs, gallop, clicks GI/Abdominal exam: Present: soft, tenderness (Right-sided CVA tenderness.), normal bowel sounds. Absent: distended, guarding, rebound, rigid Extremities exam: Present: normal inspection, full ROM, normal capillary refill. Absent: tenderness, pedal edema, joint swelling, calf tenderness Back exam: Present: normal inspection Neurological exam: Present: alert, oriented X3, CN II-XII intact Psychiatric exam: Present: normal affect, normal mood <Bibi Mathur - Last Filed: 10/22/18 00:30> - General Exam Comments Initial Comments: This is 23-year-old female. Alert and oriented 3. (Bibi Mathur) Course Vital Signs 10/21/18 10/21/18 10/21/18 22:55 23:30 23:52 Temperature 100 F H 104.1 F H Pulse Rate 134 H 125 H Respiratory 16 14 Rate Blood Pressure 127/86 O2 Sat by Pulse 100 Oximetry 10/21/18 10/22/18 23:55 00:57 Temperature 100.6 F H Pulse Rate 124 H 130 H Respiratory 15 Rate Blood Pressure 131/88 119/79 O2 Sat by Pulse 98 Oximetry Medical Decision Making - Lab Data Result diagrams: 10/21/18 23:50 10/21/18 23:50 <Bibi Mathur - Last Filed: 10/22/18 00:30> - Lab Data Result diagrams: 10/21/18 23:50 10/21/18 23:50 <Giselle Slade - Last Filed: 10/22/18 07:29> - Medical Decision Making Patient is a 23-year-old female, presents instruments today for reevaluation for flank pain, nausea and vomiting. Unable to hold her medications down. She is sinus a pyelonephritis earlier today. Instructed to the emergency department with a fear 104.1, tachycardic at 135 bpm. Patient is initiated on IV fluids, blood cultures were obtained. Patient's initial lab work earlier today was relatively unremarkable besides the elevated white blood cells and red blood cells and bacteria in her urinalysis. Urine culture is completed. At this time Patient was given a gram of Rocephin IV. I discussed with reevaluation nausea vomiting, and meeting sepsis criteria we will admit the Patient for pyelonephritis at this time. Patient denies any concern for sexually transmitted infection or vaginal discharge. (Bibi Mathur) I saw and evaluated the patient, given the history do feel the patient needs to be admitted to the hospital for IV antibiotics. Patient presents profoundly febrile tachycardic. Patient care was discussed with admitting physician Dr. Conway who accepts the admission for pyelonephritis. (Giselle Slade) - Lab Data Lab Results 10/21/18 10/21/18 10/21/18 Range/Units 23:50 23:50 23:50 WBC 5.1 (3.8-10.6) k/uL RBC 3.58 L (3.80-5.40) m/uL Hgb 10.3 L (11.4-16.0) gm/dL Hct 29.9 L (34.0-46.0) % MCV 83.5 (80.0-100.0) fL MCH 28.9 (25.0-35.0) pg MCHC 34.6 (31.0-37.0) g/dL RDW 14.1 (11.5-15.5) % Plt Count 113 L (150-450) k/uL Neutrophils % 84 % Lymphocytes % 6 % Monocytes % 7 % Eosinophils % 1 % Basophils % 0 % Neutrophils # 4.3 (1.3-7.7) k/uL Lymphocytes # 0.3 L (1.0-4.8) k/uL Monocytes # 0.4 (0-1.0) k/uL Eosinophils # 0.1 (0-0.7) k/uL Basophils # 0.0 (0-0.2) k/uL PT (9.0-12.0) sec INR (<1.2) APTT (22.0-30.0) sec Sodium 139 (137-145) mmol/L Potassium 3.9 (3.5-5.1) mmol/L Chloride 108 H (98-107) mmol/L Carbon Dioxide 21 L (22-30) mmol/L Anion Gap 10 mmol/L BUN 15 (7-17) mg/dL Creatinine 0.66 (0.52-1.04) mg/dL Est GFR (CKD-EPI)AfAm >90 (>60 ml/min/1.73 sqM) Est GFR (CKD-EPI)NonAf >90 (>60 ml/min/1.73 sqM) Glucose 117 H (74-99) mg/dL Plasma Lactic Acid Gregg 1.0 (0.7-2.0) mmol/L Calcium 8.9 (8.4-10.2) mg/dL Total Bilirubin 1.5 H (0.2-1.3) mg/dL AST 70 H (14-36) U/L ALT 94 H (9-52) U/L Alkaline Phosphatase 96 (38-126) U/L Total Protein 6.7 (6.3-8.2) g/dL Albumin 3.8 (3.5-5.0) g/dL 10/21/18 Range/Units 23:50 WBC (3.8-10.6) k/uL RBC (3.80-5.40) m/uL Hgb (11.4-16.0) gm/dL Hct (34.0-46.0) % MCV (80.0-100.0) fL MCH (25.0-35.0) pg MCHC (31.0-37.0) g/dL RDW (11.5-15.5) % Plt Count (150-450) k/uL Neutrophils % % Lymphocytes % % Monocytes % % Eosinophils % % Basophils % % Neutrophils # (1.3-7.7) k/uL Lymphocytes # (1.0-4.8) k/uL Monocytes # (0-1.0) k/uL Eosinophils # (0-0.7) k/uL Basophils # (0-0.2) k/uL PT 10.9 (9.0-12.0) sec INR 1.0 (<1.2) APTT 24.7 (22.0-30.0) sec Sodium (137-145) mmol/L Potassium (3.5-5.1) mmol/L Chloride (98-107) mmol/L Carbon Dioxide (22-30) mmol/L Anion Gap mmol/L BUN (7-17) mg/dL Creatinine (0.52-1.04) mg/dL Est GFR (CKD-EPI)AfAm (>60 ml/min/1.73 sqM) Est GFR (CKD-EPI)NonAf (>60 ml/min/1.73 sqM) Glucose (74-99) mg/dL Plasma Lactic Acid Gregg (0.7-2.0) mmol/L Calcium (8.4-10.2) mg/dL Total Bilirubin (0.2-1.3) mg/dL AST (14-36) U/L ALT (9-52) U/L Alkaline Phosphatase (38-126) U/L Total Protein (6.3-8.2) g/dL Albumin (3.5-5.0) g/dL Disposition Is patient prescribed a controlled substance at d/c from ED?: No Time of Disposition: 00:34 <Bibi Mathur - Last Filed: 10/22/18 00:30> <Giselle Slade - Last Filed: 10/22/18 07:29> Clinical Impression: Pyelonephritis, Sepsis Disposition: ADMITTED IP TO THIS HOSP Condition: Stable
[2018-10-22 00:40] LABS: Partial Thromboplastin Time 24.7 sec (22.0-30.0); Prothrombin Time 10.9 sec (9.0-12.0)
[2018-10-22] MEDS ORDERED: SODIUM CHLORIDE 0.9% 1,000 ML IV SCH (00:45)
[2018-10-22] MEDS: SODIUM CHLORIDE 0.9% 1,000 ML IV SCH ×2 (01:01→16:16)
[2018-10-22] MEDS ORDERED: SODIUM CHLORIDE 0.9% 2,000 ML IV ONE (01:29)
[2018-10-22] MEDS ORDERED: SODIUM CHLORIDE 0.9% 1,000 ML IV ONE (01:30)
--- NOTE | 2018-10-22 01:33 | P.HPIM ---
History of Present Illness H&P Date: 10/22/18 The patient is a 23-year-old female with a PMH of frequent urinary tract infections presents to the ED for fever, chills, and left back and flank pain. The patient had presented earlier in the day to the ED with similar symptoms. The patient reports that her symptoms started a few days ago when she developed a left sided back and flank pain and associated dysuria. The patient however states that she was unable to fill her prescription from earlier today due to in the inability to reach the pharmacy. At time of interview, she reports that her abdominal pain and all urinary complaints have resolved, though she continues to feel feverish, and slightly not like herself. The patient reports that she underwent subsequent of operative repair when she was 9-10 years old due to recurring urinary tract infections, though is unable to recall the exact procedure or problem. Patient also denied any history of sexually-transmitted illnesses or abnormal vaginal discharge. The patient's urinalysis was consistent with UTI and urine cultures were sent. She denied chest pain, shortness of breath, nausea, or vomiting. She also denied diarrhea, headache, dizziness, or visual impairments. The patient underwent an extensive evaluation in the ED with WBC count 5.1, alkaline 10.3, platelets 113, AST 70, ALT 94, and total bilirubin 1.5 Review of Systems Pertinent positives and negatives as discussed in HPI, a complete review of systems was performed and all other systems are negative. Past Medical History Past Medical History: Syncope Additional Past Medical History / Comment(s): SYNCOPE; gestational diabetesdiet controlled previous History of Any Multi-Drug Resistant Organisms: None Reported Additional Past Surgical History / Comment(s): KIDNEY SURGERY Past Anesthesia/Blood Transfusion Reactions: No Reported Reaction Past Psychological History: No Psychological Hx Reported Smoking Status: Never smoker Past Alcohol Use History: Occasional Past Drug Use History: Marijuana, Prescription Drug Abuse - Past Family History Mother Family Medical History: No Reported History Brother(s) Additional Family Medical History / Comment(s): Autistic Medications and Allergies Home Medications Medication Instructions Recorded Confirmed Type Ciprofloxacin HCl [Cipro] 500 mg PO Q12HR #20 tablet 10/21/18 Rx Ibuprofen [Motrin] 600 mg PO Q8HR PRN #30 tab 10/21/18 Rx Allergies Allergy/AdvReac Type Severity Reaction Status Date / Time codeine AdvReac Nausea & Verified 10/21/18 22:55 Vomiting Physical Exam Vitals: Vital Signs Temp Pulse Resp BP Pulse Ox 10/22/18 00:57 100.6 F H 130 H 15 119/79 98 10/21/18 23:55 124 H 131/88 10/21/18 23:52 125 H 14 10/21/18 23:30 104.1 F H 10/21/18 22:55 100 F H 134 H 16 127/86 100 Intake and Output 10/21/18 10/21/18 10/22/18 14:59 22:59 06:59 Other: Weight 56.245 kg General: non toxic, no distress, appears at stated age, normal weight Derm: no unusual rashes/lesions no unusual ecchymoses, warm, dry Head: atraumatic, normocephalic, symmetric Eyes: EOMI, no lid lag, anicteric sclera, pupils equal round reactive to light ENT: Nose and ears atraumatic, no thrush, no pharyngeal erythema Neck: No thyromegaly, no cervical lymphadenopathy, trachea midline, supple Mouth: no lip lesion, mucus membranes moist Cardiovascular: S1S2 reg, tachycardic, no murmur, positive posterior tibial pulse bilateral, no edema, capillary refill less than 2 seconds Lungs: CTA bilateral, no rhonchi, no rales , no accessory muscle use Abdominal: soft, mild left CVA tenderness, no guarding, no appreciable organomegaly, normal bowel sounds Ext: no gross muscle atrophy, muscle strength 5 out of 5 in all 4 extremities grossly, no contractures, Neuro: CN II-XI grossly intact, light touch intact all 4 extremities, finger to nose within normal limits, Psych: Alert, oriented, appropriate affect Results CBC & Chem 7: 10/21/18 23:50 10/21/18 23:50 Labs: Abnormal Lab Results - Last 24 Hours (Table) 10/21/18 10/21/18 Range/Units 23:50 23:50 RBC 3.58 L (3.80-5.40) m/uL Hgb 10.3 L (11.4-16.0) gm/dL Hct 29.9 L (34.0-46.0) % Plt Count 113 L (150-450) k/uL Lymphocytes # 0.3 L (1.0-4.8) k/uL Chloride 108 H (98-107) mmol/L Carbon Dioxide 21 L (22-30) mmol/L Glucose 117 H (74-99) mg/dL Total Bilirubin 1.5 H (0.2-1.3) mg/dL AST 70 H (14-36) U/L ALT 94 H (9-52) U/L Assessment and Plan Plan: Sepsis secondary to acute pyelonephritis -Continue with IV fluids -Continue with ceftriaxone -Follow-up urine and blood cultures Thrombocytopenia -Likely secondary to sepsis Deranged transaminases -Possibly also secondary to sepsis, monitor for now DVT prophylaxis -Lovenox The patient is admitted with an anticipated less than 2 midnight stay for evaluation of sepsis from pyelonephritis. CODE STATUS:Full Code Discussed with: Patient Anticipated discharge date: 10/24/[address]: Home A total of 40 minutes was spent on the care of this complex patient more than 50% of the time was spent in counseling and care coordination.
[2018-10-22 01:39] LABS: Appearance,Urine Cloudy (Clear); Bacteria,Urine Occasional /hpf; Bilirubin,Urine Negative (Negative); Blood,Urine Trace (Negative); Color,Urine Yellow; Glucose,Urine (UA) Negative (Negative); Ketones,Urine Trace (Negative); Leukocyte Esterase,Urine Large (Negative); Mucus,Urine Rare /hpf; Nitrite,Urine Negative (Negative); Protein,Urine Trace (Negative); RBC,Urine 6 /hpf (0-5); Specific Gravity,Urine 1.005 (1.001-1.035); Squamous Epithelial Cell,Urine 2 /hpf (0-4); Urobilinogen,Urine <2.0 mg/dL (<2.0); WBC,Urine 160 /hpf (0-5)
[2018-10-22 01:50] VITALS: BMI 24.5
[2018-10-22] MEDS: ENOXAPARIN 40 MG/0.4 ML SYRINGE SQ SCH (08:42)
[2018-10-22 09:41] LABS: ALT 84 U/L (9-52); AST 42 U/L (14-36); African American GFR (CKD) >90 (>60 ml/min/1.73 sqM); Albumin 2.7 g/dL (3.5-5.0); Alkaline Phosphatase 77 U/L (38-126); Anion Gap 7 mmol/L; Blood Urea Nitrogen 8 mg/dL (7-17); Carbon Dioxide 18 mmol/L (22-30); Chloride 117 mmol/L (98-107); Glucose 106 mg/dL (74-99); Sodium 142 mmol/L (137-145); Total Bilirubin 0.7 mg/dL (0.2-1.3); Total Protein 5.2 g/dL (6.3-8.2)
[2018-10-22 10:39] LABS: HCT 26.8 % (34.0-46.0); MCH 28.6 pg (25.0-35.0); MCHC 32.8 g/dL (31.0-37.0); MCV 87.3 fL (80.0-100.0); Mean Platelet Volume 7.6; RBC 3.07 m/uL (3.80-5.40); RDW 13.6 % (11.5-15.5); WBC 4.2 k/uL (3.8-10.6)
[2018-10-22 11:22] LABS: HGB 8.8 gm/dL (11.4-16.0)
[2018-10-22 11:57] LABS: Platelet Count 90 k/uL (150-450)
[2018-10-22] MEDS: ACETAMINOPHEN TAB 325 MG TAB PO PRN (15:21)
[2018-10-22] MEDS: KETOROLAC 30 MG/ML 1 ML VIAL IVP PRN ×2 (16:15→22:15)
[2018-10-22] MEDS: SODIUM CHLORIDE 0.45% 1,000 ML IV SCH (18:08)
--- NOTE | 2018-10-22 20:19 | P.PN ---
Progress Note - Text Progress Note Date: 10/22/18 (delayed charting seen at 1300) Hospitalist Interval Note Patient seen and examined at bedside. No chest pain, sob, nausea, or vomiting. Back pain improved. 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 Vital signs reviewed General: non toxic, no distress, appears at stated age Derm: warm, dry Head: atraumatic, normocephalic, symmetric Eyes: EOMI, no lid lag, anicteric sclera Mouth: no lip lesion, mucus membranes moist Cardiovascular: S1S2 reg, no murmur, positive posterior tibial pulse bilateral, Lungs: CTA bilateral, no rhonchi, no rales , no accessory muscle use Abdominal: soft, nontender to palpation, no guarding, no appreciable organomegaly Ext: no gross muscle atrophy, no edema, no contractures Neuro: CN II-XI grossly intact, no focal neuro deficits Psych: Alert, oriented, appropriate affect Assessment/Plan: 1. pyelonephritis with sepsis on admission- rocephin, IVF, check renal US, consult urology with hx of what sound like reflux. 2. Hypercholremia acidosis- change IVF to 0.45 NS, repeat labs in AM This is an update note for patient , for full note on 10/22 see H and P . There is no charge associated with this note.
[2018-10-23] MEDS: SODIUM CHLORIDE 0.45% 1,000 ML IV SCH ×3 (03:16→21:54)
[2018-10-23] MEDS: KETOROLAC 30 MG/ML 1 ML VIAL IVP PRN (06:20)
--- NOTE | 2018-10-23 08:59 | US ---
EXAMINATION TYPE: US kidneys/renal and bladder DATE OF EXAM: 10/23/2018 COMPARISON: [facility] 2006 CLINICAL HISTORY: pyelonephritis. 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 Does not remember which side. EXAM MEASUREMENTS: Right Kidney: 11.9 x 4.5 x 5.4 cm Left Kidney: 10.7 x 3.6 x 5.5 cm Spleen: 14.4 cm Right Kidney: Moderate hydronephrosis visualized Left Kidney: No hydronephrosis. Increased echogenicity within the lower pole. Possible scarring from previous surgery vs other Bladder: wnl Bilateral Jets seen: No, left jet only visualized Spleen is enlarged Moderate right-sided pyelocaliectasis on images saved. Spleen is enlarged at 14.4 cm and overall hete rogeneous without adjacent ascites. No left-sided hydronephrosis. Bladder is satisfactorily distended . IMPRESSION: 1. New moderate right-sided hydronephrosis does not correspond to left-sided reflux on 2006 study. Et iology uncertain. Consider further clinical workup. 2. Splenomegaly is noted which may warrant further clinical workup.
[2018-10-23] MEDS: ENOXAPARIN 40 MG/0.4 ML SYRINGE SQ SCH (10:10)
--- NOTE | 2018-10-23 12:11 | P.GSCN ---
History of Present Illness Consult date: 10/23/18 Reason for Consult: Left pyelonephritis Requesting physician: Nikolai Conway History of present illness: The patient is a 23-year-old white female who underwent antireflux surgery at age 11 in [place]. A [facility] in 2005 showed left-sided reflux, so presumably a left ureteral reimplant was performed. She continues to have recurrent UTIs, though less frequently than she did prior to the reimplant. She is now admitted with fever, chills, and bilateral flank pain. She denies any prior history of urolithiasis. Review of Systems - Constitutional Reports chills, Reports fever - Cardiovascular Denies chest pain - Respiratory Denies dyspnea - Gastrointestinal Denies nausea, Denies vomiting - Genitourinary Genitourinary: Reports flank pain Past Medical History Past Medical History: Syncope Additional Past Medical History / Comment(s): SYNCOPE; gestational diabetesdiet controlled previous History of Any Multi-Drug Resistant Organisms: None Reported Additional Past Surgical History / Comment(s): KIDNEY SURGERY Past Anesthesia/Blood Transfusion Reactions: No Reported Reaction Past Psychological History: No Psychological Hx Reported Smoking Status: Never smoker Past Alcohol Use History: Occasional Past Drug Use History: Marijuana Additional Drug Use History / Comment(s): pt states she smokes marijuana occasionally - Past Family History Mother Family Medical History: No Reported History Brother(s) Additional Family Medical History / Comment(s): Autistic Medications and Allergies Home Medications Medication Instructions Recorded Confirmed Type No Known Home Medications 10/22/18 10/22/18 History Allergies Allergy/AdvReac Type Severity Reaction Status Date / Time codeine AdvReac Nausea & Verified 10/22/18 07:05 Vomiting Surgical - Exam Vital Signs Temp Pulse Resp BP Pulse Ox 100 F H 134 H 16 127/86 100 10/21/18 22:55 10/21/18 22:55 10/21/18 22:55 10/21/18 22:55 10/21/18 22:55 - General well developed, well nourished, no distress - Respiratory normal respiratory effort - Abdomen Abdomen: soft, tender (Mild right CVA tenderness), no guarding, no rigid, no rebound - Psychiatric oriented to time, oriented to person, oriented to place, speech is normal, memory intact Results - Labs 10/22/18 10:05 10/22/18 08:57 Abnormal Lab Results - Last 24 Hours (Table) 10/22/18 10/22/18 Range/Units 08:57 10:05 RBC 3.07 L (3.80-5.40) m/uL Hgb 8.8 L D (11.4-16.0) gm/dL Hct 26.8 L (34.0-46.0) % Plt Count 90 L (150-450) k/uL Chloride 117 H (98-107) mmol/L Carbon Dioxide 18 L (22-30) mmol/L Creatinine 0.50 L (0.52-1.04) mg/dL Glucose 106 H (74-99) mg/dL Calcium 8.0 L (8.4-10.2) mg/dL AST 42 H (14-36) U/L ALT 84 H (9-52) U/L Total Protein 5.2 L (6.3-8.2) g/dL Albumin 2.7 L (3.5-5.0) g/dL Microbiology - Last 24 Hours (Table) 10/21/18 23:50 Blood Culture - Preliminary Blood No Growth after 24 hours 10/22/18 01:23 Urine Culture - Preliminary Urine,Catheterized Diabetes panel 10/22/18 Range/Units 08:57 Sodium 142 (137-145) mmol/L Potassium 4.0 (3.5-5.1) mmol/L Chloride 117 H (98-107) mmol/L Carbon Dioxide 18 L (22-30) mmol/L BUN 8 (7-17) mg/dL Creatinine 0.50 L (0.52-1.04) mg/dL Glucose 106 H (74-99) mg/dL Calcium 8.0 L (8.4-10.2) mg/dL AST 42 H (14-36) U/L ALT 84 H (9-52) U/L Alkaline Phosphatase 77 (38-126) U/L Total Protein 5.2 L (6.3-8.2) g/dL Albumin 2.7 L (3.5-5.0) g/dL Calcium panel 10/22/18 Range/Units 08:57 Calcium 8.0 L (8.4-10.2) mg/dL Albumin 2.7 L (3.5-5.0) g/dL Pituitary panel 10/22/18 Range/Units 08:57 Sodium 142 (137-145) mmol/L Potassium 4.0 (3.5-5.1) mmol/L Chloride 117 H (98-107) mmol/L Carbon Dioxide 18 L (22-30) mmol/L BUN 8 (7-17) mg/dL Creatinine 0.50 L (0.52-1.04) mg/dL Glucose 106 H (74-99) mg/dL Calcium 8.0 L (8.4-10.2) mg/dL Adrenal panel 10/22/18 Range/Units 08:57 Sodium 142 (137-145) mmol/L Potassium 4.0 (3.5-5.1) mmol/L Chloride 117 H (98-107) mmol/L Carbon Dioxide 18 L (22-30) mmol/L BUN 8 (7-17) mg/dL Creatinine 0.50 L (0.52-1.04) mg/dL Glucose 106 H (74-99) mg/dL Calcium 8.0 L (8.4-10.2) mg/dL Total Bilirubin 0.7 (0.2-1.3) mg/dL AST 42 H (14-36) U/L ALT 84 H (9-52) U/L Alkaline Phosphatase 77 (38-126) U/L Total Protein 5.2 L (6.3-8.2) g/dL Albumin 2.7 L (3.5-5.0) g/dL - Imaging US - kidney/bladder: report reviewed Assessment and Plan (1) Acute pyelonephritis Current Visit: Yes Status: Acute Code(s): N10 - ACUTE PYELONEPHRITIS SNOMED Code(s): 92121012 (2) Hydronephrosis Current Visit: Yes Status: Acute Code(s): N13.30 - UNSPECIFIED HYDRONEPHROSIS SNOMED Code(s): 20111555 Plan: Leno has been intermittently febrile during this hospitalization. She has no leukocytosis. Blood cultures are negative. Urinalysis was suggestive of a UTI. A urine culture is pending. She has a history of vesicoureteral reflux, and likely underwent a left ureteral reimplant at age 11. Ultrasound now shows evidence of right hydronephrosis. I would suggest that a computed tomography scan of the abdomen and pelvis be obtained for further evaluation. I would also suggest that she continue to receive IV antibiotics, pending the final urine culture result.
[2018-10-23 13:19] LABS: HCT 27.3 % (34.0-46.0); HGB 9.2 gm/dL (11.4-16.0); MCH 28.7 pg (25.0-35.0); MCHC 33.6 g/dL (31.0-37.0); MCV 85.5 fL (80.0-100.0); Mean Platelet Volume 7.3; RDW 13.8 % (11.5-15.5)
[2018-10-23 13:22] LABS: African American GFR (CKD) >90 (>60 ml/min/1.73 sqM); Anion Gap 10 mmol/L; Blood Urea Nitrogen 4 mg/dL (7-17); Calcium 8.5 mg/dL (8.4-10.2); Carbon Dioxide 20 mmol/L (22-30); Chloride 110 mmol/L (98-107); Glucose 89 mg/dL (74-99); Potassium 3.4 mmol/L (3.5-5.1); Sodium 140 mmol/L (137-145)
[2018-10-23 13:28] LABS: Platelet Count 137 k/uL (150-450)
--- NOTE | 2018-10-23 13:32 | P.PN ---
Subjective Progress Note Date: 10/23/18 Principal diagnosis: back pain and fevers Patient is a 23-year-old female with a past medical history of frequent urinary tract infections, syncope, gestational diabetes, and prior surgery for ureterovesical reflux who presented to the emergency department with complaints of back pain, fevers, and chills. In the emergency department she underwent an extensive evaluation. On arrival she had a fever of 100 with a pulse of 134. Approximately 30 minutes after arrival her Sever spiked out 104.1. Initial laboratory analysis showed an elevated chloride level, mildly elevated AST and ALT, and urinalysis consistent with urinary tract infection. She was started on Rocephin and IV fluids and admitted for further monitoring. On the morning after admission she was found have a hyperchloremic metabolic acidosis and IV fluids were adjusted. Her repeat liver enzymes were down trending. She continued to spike fevers throughout the night. With her known history of prior urinary tract abnormalities a renal ultrasound was ordered which showed right-sided hydronephrosis. Urology was consulted. Plan is for CT abdomen and pelvis today. Initial urine culture came back negative. Patient seen and examined at bedside. She is still having some riders and generalized body pain with her fever this morning. However since her fever has resolved she is not having any pain. She denies any back pain or dysuria. She denies any nausea or vomiting, or diarrhea. Objective - Vital Signs Vital signs: Vital Signs Temp 98.3 F 10/23/18 12:44 Pulse 90 10/23/18 12:44 Resp 20 10/23/18 12:44 BP 129/87 10/23/18 12:44 Pulse Ox 99 10/23/18 12:44 Intake & Output 10/22/18 10/23/18 10/23/18 18:59 06:59 18:59 Intake Total 2100 Output Total 550 2150 1040 Balance - Intake: Intake, IV Titration 1000 Amount Sodium Chloride 0.45% 1, 1000 000 ml @ 100 mls/hr IV . Q10H JADE Rx#:[id number] Oral 1100 Output: Urine 550 2150 1040 Other: Voiding Method Toilet Toilet Toilet # Voids 800 1 1 - Exam General: non toxic, no distress, appears at stated age Derm: warm, dry Head: atraumatic, normocephalic, symmetric Eyes: EOMI, no lid lag, anicteric sclera Mouth: no lip lesion, mucus membranes moist Cardiovascular: S1S2 reg, no murmur, positive posterior tibial pulse bilateral, Lungs: CTA bilateral, no rhonchi, no rales , no accessory muscle use Abdominal: soft, nontender to palpation, no guarding, no appreciable organomegaly, no flank pain Ext: no gross muscle atrophy, no edema, no contractures Neuro: CN II-XI grossly intact, no focal neuro deficits Psych: Alert, oriented, appropriate affect - Labs CBC & Chem 7: 10/22/18 10:05 10/22/18 08:57 Labs: Microbiology - Last 24 Hours (Table) 10/22/18 01:23 Urine Culture - Final Urine,Catheterized 10/21/18 23:50 Blood Culture - Preliminary Blood No Growth after 24 hours Assessment and Plan Assessment: Pyelonephritis with sepsis evidence with fever and tachycardia -Continue with Rocephin -IV fluids -Urine culture negative -Blood cultures negative to date -Repeat urine culture, check a gonorrhea and chlamydia Right-sided hydronephrosis -Urology recommendations -CT abdomen and pelvis Thrombocytopenia with elevated transaminitis -Suspect secondary to sepsis -Repeat blood work pending -CT abdomen and pelvis will better visualized liver architecture -needs outpatient follow-up to ensure this resolved. DVT prophylaxis: Lovenox Discussed with: Patient, nursing, spouse Anticipated discharge: 1-[address]: home A total of 45 minutes was spent on the care of this complex patient more than 50% of the time was spent in counseling and care coordination.
[2018-10-23 14:21] LABS: Appearance,Urine Cloudy (Clear); Bacteria,Urine Few /hpf; Bilirubin,Urine Negative (Negative); Blood,Urine Negative (Negative); Color,Urine Yellow; Glucose,Urine (UA) Negative (Negative); Ketones,Urine 1+ (Negative); Leukocyte Esterase,Urine Large (Negative); Mucus,Urine Rare /hpf; Nitrite,Urine Negative (Negative); PH, Urine 6.5 (5.0-8.0); Protein,Urine Trace (Negative); RBC,Urine 1 /hpf (0-5); Specific Gravity,Urine 1.007 (1.001-1.035); Squamous Epithelial Cell,Urine 9 /hpf (0-4)
--- NOTE | 2018-10-23 14:36 | CT ---
EXAMINATION TYPE: CT abdomen pelvis wo con DATE OF EXAM: 10/23/2018 HISTORY: Abnormal US, Bilat flank pain. CT DLP: 262.1 mGycm. Automated Exposure Control for Dose Reduction was Utilized. TECHNIQUE: CT scan of the abdomen and pelvis is performed without oral or IV contrast. COMPARISON: Renal ultrasound earlier today FINDINGS: Within the limitations of a non-contrast study, the following observations are made. LUNG BASES: Elevated right hemidiaphragm is present. Tiny pericardial effusion is seen. LIVER/GB: No significant abnormality is appreciated. PANCREAS: No significant abnormality is seen. SPLEEN: Mild splenomegaly is confirmed measuring 13.1 cm long axis coronal image 32. ADRENALS: No significant abnormality is seen. KIDNEYS: Left kidney shows lower pole asymmetric cortical thinning with 6-10 scattered calcific foci could reflect renal calculi measuring up to 4 mm coronal image 47 midpole level there is suspected pa rtially duplicated left-sided collecting system without hydroureter or obstructing calculi seen. Righ t kidney only shows mild pyelocaliectasis less prominent than seen on recent ultrasound. Mild nonspec ific perinephric fat stranding along the lower pole margin is noted. Differential would include acute pyelonephritis. BOWEL: No significant abnormality is seen. GENITAL ORGANS: Heterogeneous anteverted slightly prominent uterus. LYMPH NODES: No greater than 1cm abdominal or pelvic lymph nodes are appreciated. OSSEOUS STRUCTURES: There is suspected accessory right L1 rib. There is a transitional-type L6 verteb ra. OTHER: No significant additional abnormality is seen. IMPRESSION: 1. Mild splenomegaly confirmed. 2. Mild right-sided perinephric fat stranding mid to lower pole level with suspected mild right-sided hydronephrosis could be on the basis of acute pyelonephritis. Asymmetric lower pole left renal atrop hy with nonobstructing left renal cortical calculi.
[2018-10-24] MEDS: SODIUM CHLORIDE 0.45% 1,000 ML IV SCH (07:13)
[2018-10-24 08:05] LABS: African American GFR (CKD) >90 (>60 ml/min/1.73 sqM); Anion Gap 12 mmol/L; Blood Urea Nitrogen 3 mg/dL (7-17); Calcium 8.7 mg/dL (8.4-10.2); Carbon Dioxide 20 mmol/L (22-30); Chloride 108 mmol/L (98-107); Glucose 92 mg/dL (74-99); Potassium 3.6 mmol/L (3.5-5.1); Sodium 140 mmol/L (137-145)
[2018-10-24] MEDS: ACETAMINOPHEN TAB 325 MG TAB PO PRN (08:23)
[2018-10-24 08:28] LABS: HCT 28.9 % (34.0-46.0); HGB 9.7 gm/dL (11.4-16.0); MCH 28.4 pg (25.0-35.0); MCHC 33.5 g/dL (31.0-37.0); MCV 84.7 fL (80.0-100.0); Mean Platelet Volume 7.2; Platelet Count 178 k/uL (150-450); RBC 3.42 m/uL (3.80-5.40); RDW 13.9 % (11.5-15.5); WBC 3.1 k/uL (3.8-10.6)
[2018-10-24] MEDS: ENOXAPARIN 40 MG/0.4 ML SYRINGE SQ SCH (08:28)
[2018-10-24 09:14] LABS: Total Bilirubin 0.5 mg/dL (0.2-1.3)
[2018-10-24 11:11] LABS: Appearance,Urine Clear (Clear); Bilirubin,Urine Negative (Negative); Blood,Urine Negative (Negative); Color,Urine Light Yellow; Glucose,Urine (UA) Negative (Negative); Ketones,Urine 1+ (Negative); Leukocyte Esterase,Urine Negative (Negative); Nitrite,Urine Negative (Negative); PH, Urine 6.5 (5.0-8.0); Protein,Urine Negative (Negative); Specific Gravity,Urine 1.004 (1.001-1.035); Urobilinogen,Urine <2.0 mg/dL (<2.0)
[2018-10-24 11:52] VITALS: BP 127/84; PULSE 74; RESP 16; TEMP 98.1
--- NOTE | 2018-10-24 15:12 | P.DS ---
Providers Date of admission: 10/22/18 00:54 Expected date of discharge: 10/24/18 Attending physician: Nikolai Conway MD Consults: 10/22/18 17:15 Consult Physician Routine Consulting Provider: Geo Murillo Consult Reason/Comments: recurrent UTI Do you want consulting provider notified?: Yes Primary care physician: Stated None - Discharge Diagnosis(es) (1) Acute pyelonephritis Current Visit: Yes Status: Acute Priority: High (2) Hydronephrosis Current Visit: Yes Status: Acute Priority: High (3) Sepsis Current Visit: Yes Status: Acute Priority: High Hospital Course: S:- Pt. was first seen in Urgent Care clinic on and urine cultures grew E. Coli, multi drug sensitive. She was admitted and started on I/V Ceftriaxone and clinically she improved. Urology was also involved due to her prior left sided ureteral implant surgery at [facility], when she was 11 years old. Her sepsis starterd resolving with improvement in fevers and heart rate along with her clinical condition. Repeat urine cultures were negative to date and she had reported blood in urine today and a straight cath urine sample was collected and urinalysis was reported as normal. She had last elevated temp. around yesterday evening and today she is afebrile and clinically back to her baseline. Pt. denies CP, SOB, F/C, N/V/D/C, Cough/Sputum and denies rest of the ROS. O:- VSS, Afebrile. Lungs - CTA&P, no W/R/C. Heart - RRR, S1S2 +. Abd - Soft, BS+, non Tender/Guarding/Rebound and no CVA tenderness. Ext - PP+. Assessment:- Acute Pyelonephritis, Hydronephrosis, Sepsis. Plan:- D/C home today on oral CIPRO 500mg BID for 10 days, script already called in to the pharmacy on [address] by urgent care provider which pt. has never picked up. she will start this from tonight until all gone. Pertinent Studies: CT-Abd/Pelvis and U/S abdomen. Procedures: None. Patient Condition at Discharge: Good Plan - Discharge Summary Discharge Rx Participant: Yes New Discharge Prescriptions: New Ciprofloxacin HCl [Cipro] 500 mg PO Q12HR 10 Days #20 tablet Discharge Medication List Ciprofloxacin HCl [Cipro] 500 mg PO Q12HR 10 Days #20 tablet 10/24/18 [Rx] Follow up Appointment(s)/Referral(s): Ross Tran MD [STAFF PHYSICIAN] - 1 Week None,Stated [Primary Care Provider] - 1-2 days Discharge Disposition: HOME SELF-CARE
[2018-10-24 16:25] LABS: C. trachomatis,PCR Negative (Neg,Equiv); Chlamydia trachomatis Source Urine; N. gonorrhoeae,PCR Negative (Neg,Equiv); Neisseria Source Urine
== END 2018-10-24 15:37 | disposition home or self-care (01) | DRG 872 ==
LOC: EC 22:50 → OBSVTOIN 10-22 00:54 → 6PED 10-22 00:54
PROVIDERS: ADMIT Internal Medicine; ATTEND Internal Medicine
DX: A41.9 Sepsis, unspecified organism (principal); N10 Acute pyelonephritis; E87.2 Acidosis; N13.6 Pyonephrosis; D69.6 Thrombocytopenia, unspecified; B96.20 Unspecified Escherichia coli [E. coli] as the cause of diseases classified elsewhere; R19.7 Diarrhea, unspecified; Z86.32 Personal history of gestational diabetes; R55 Syncope and collapse; R31.9 Hematuria, unspecified; Z87.440 Personal history of urinary (tract) infections; R74.0 Nonspecific elevation of levels of transaminase and lactic acid dehydrogenase [LDH]; R00.0 Tachycardia, unspecified; Z88.5 Allergy status to narcotic agent; Z82.0 Family history of epilepsy and other diseases of the nervous system
CPT/HCPCS: 36415; 74176; 76770; 80048; 80053; 81001; 81003; 82247; 83605; 84450; 84460; 85025; 85027; 85610; 85730; 87040; 87077; 87086; 87186; 87491; 87591; 93005; 96365; 99285

== ENCOUNTER 2019-08-18 22:01 | Emergency (ER) | payer BC, OTHER ==
[2019-08-18 22:10] VITALS: RESP 18; TEMP 98.2
[2019-08-18 22:38] LABS: Basophils % (A) 0 %; Eosinophils # (A) 0.1 k/uL (0-0.7); Eosinophils % (A) 2 %; HCT 38.6 % (34.0-46.0); HGB 12.8 gm/dL (11.4-16.0); Lymphocytes # (A) 1.6 k/uL (1.0-4.8); Lymphocytes % (A) 28 %; MCH 29.3 pg (25.0-35.0); MCHC 33.2 g/dL (31.0-37.0); MCV 88.2 fL (80.0-100.0); Mean Platelet Volume 7.1; Monocytes # (A) 0.3 k/uL (0-1.0); Monocytes % (A) 5 %; Neutrophils # (A) 3.6 k/uL (1.3-7.7); Neutrophils % (A) 63 %; Platelet Count 195 k/uL (150-450); RBC 4.38 m/uL (3.80-5.40); RDW 12.3 % (11.5-15.5); WBC 5.7 k/uL (3.8-10.6)
--- NOTE | 2019-08-18 22:43 | ED ---
General Adult HPI - General Chief complaint: Chest Pain Stated complaint: Chest Pain Time Seen by Provider: 08/18/19 22:10 Source: patient, RN notes reviewed, old records reviewed Mode of arrival: ambulatory Limitations: no limitations - History of Present Illness Initial comments: 24-year-old female otherwise healthy presenting for evaluation of chest pain. Pain initially began yesterday evening, left upper chest pain. Pain resolved throughout the day today without any specific treatment. Again this evening while at rest the patient developed a sharp pain in her upper left chest. No associated dyspnea. No cough. No substernal chest pain. No history DVT or PE. No fever. No abdominal pain. - Related Data Previous Rx's Medication Instructions Recorded Ciprofloxacin HCl [Cipro] 500 mg PO Q12HR 10 Days #20 tablet 10/24/18 Allergies Allergy/AdvReac Type Severity Reaction Status Date / Time codeine AdvReac Nausea & Verified 08/18/19 22:09 Vomiting Review of Systems ROS Statement: Those systems with pertinent positive or pertinent negative responses have been documented in the HPI. ROS Other: All systems not noted in ROS Statement are negative. Past Medical History Past Medical History: Syncope Additional Past Medical History / Comment(s): SYNCOPE; gestational diabetesdiet controlled previous History of Any Multi-Drug Resistant Organisms: None Reported Additional Past Surgical History / Comment(s): KIDNEY SURGERY Past Anesthesia/Blood Transfusion Reactions: No Reported Reaction Past Psychological History: No Psychological Hx Reported Smoking Status: Never smoker Past Alcohol Use History: Occasional Past Drug Use History: Marijuana - Past Family History Mother Family Medical History: No Reported History Brother(s) Additional Family Medical History / Comment(s): Autistic General Exam Limitations: no limitations General appearance: alert, in no apparent distress Head exam: Present: atraumatic, normocephalic Eye exam: Present: normal appearance, PERRL ENT exam: Present: normal exam Neck exam: Present: normal inspection. Absent: tenderness, meningismus Respiratory exam: Present: normal lung sounds bilaterally, chest wall tenderness (Reproducible left upper chest pain). Absent: respiratory distress, wheezes, rales Cardiovascular Exam: Present: normal rhythm, tachycardia GI/Abdominal exam: Present: soft. Absent: distended, tenderness, guarding Extremities exam: Present: normal inspection, normal capillary refill. Absent: pedal edema, calf tenderness Neurological exam: Present: alert, oriented X3, CN II-XII intact. Absent: motor sensory deficit Psychiatric exam: Present: normal affect, normal mood Skin exam: Present: warm, dry, intact. Absent: cyanosis, diaphoretic Course Vital Signs 08/18/19 08/18/19 08/18/19 22:06 22:48 23:00 Temperature 98.2 F Pulse Rate 100 93 90 Respiratory 18 Rate Blood Pressure 142/83 132/92 O2 Sat by Pulse 99 100 Oximetry 08/18/19 23:15 Temperature Pulse Rate 97 Respiratory Rate Blood Pressure 117/81 O2 Sat by Pulse Oximetry - Reevaluation(s) Reevaluation #1: 08/18/19 22:49 Patient's care is signed out at shift change to Dr. Bishop awaiting laboratory testing, and x-ray. EKG Findings - EKG Comments: EKG Findings:: EKG: Sinus tachycardia, rate of 102, PA interval 118, QRS duration 68, QTC 453 Medical Decision Making - Medical Decision Making 24-year-old female presenting with reproducible left upper chest pain. Patient is mildly tachycardic, otherwise stable vital signs. Workup reveals EKG showing sinus tach, no ST segment elevation. Chest x-ray is clear, no pneumothorax, no focal pneumonia. Patient has a normal CBC, normal CMP, negative d-dimer, negative troponin. She is currently not . She will take Motrin for pain. She will follow-up with her primary care physician. - Lab Data Result diagrams: 08/18/19 22:25 08/18/19 22:25 Lab Results 08/18/19 08/18/19 08/18/19 Range/Units 22:25 22:25 22:25 WBC 5.7 (3.8-10.6) k/uL RBC 4.38 (3.80-5.40) m/uL Hgb 12.8 (11.4-16.0) gm/dL Hct 38.6 (34.0-46.0) % MCV 88.2 (80.0-100.0) fL MCH 29.3 (25.0-35.0) pg MCHC 33.2 (31.0-37.0) g/dL RDW 12.3 (11.5-15.5) % Plt Count 195 (150-450) k/uL Neutrophils % 63 % Lymphocytes % 28 % Monocytes % 5 % Eosinophils % 2 % Basophils % 0 % Neutrophils # 3.6 (1.3-7.7) k/uL Lymphocytes # 1.6 (1.0-4.8) k/uL Monocytes # 0.3 (0-1.0) k/uL Eosinophils # 0.1 (0-0.7) k/uL Basophils # 0.0 (0-0.2) k/uL PT 10.3 (9.0-12.0) sec INR 1.0 (<1.2) APTT 22.9 (22.0-30.0) sec D-Dimer <0.17 (<0.60) mg/L FEU Sodium 139 (137-145) mmol/L Potassium 4.3 (3.5-5.1) mmol/L Chloride 102 (98-107) mmol/L Carbon Dioxide 27 (22-30) mmol/L Anion Gap 10 mmol/L BUN 20 H (7-17) mg/dL Creatinine 0.64 (0.52-1.04) mg/dL Est GFR (CKD-EPI)AfAm >90 (>60 ml/min/1.73 sqM) Est GFR (CKD-EPI)NonAf >90 (>60 ml/min/1.73 sqM) Glucose 115 H (74-99) mg/dL Calcium 9.5 (8.4-10.2) mg/dL Magnesium 2.0 (1.6-2.3) mg/dL Total Bilirubin 0.8 (0.2-1.3) mg/dL AST 20 (14-36) U/L ALT 14 (4-34) U/L Alkaline Phosphatase 90 (38-126) U/L Troponin I (0.000-0.034) ng/mL Total Protein 7.9 (6.3-8.2) g/dL Albumin 4.7 (3.5-5.0) g/dL Urine HCG, Qual (Not Detectd) 08/18/19 08/18/19 Range/Units 22:25 22:34 WBC (3.8-10.6) k/uL RBC (3.80-5.40) m/uL Hgb (11.4-16.0) gm/dL Hct (34.0-46.0) % MCV (80.0-100.0) fL MCH (25.0-35.0) pg MCHC (31.0-37.0) g/dL RDW (11.5-15.5) % Plt Count (150-450) k/uL Neutrophils % % Lymphocytes % % Monocytes % % Eosinophils % % Basophils % % Neutrophils # (1.3-7.7) k/uL Lymphocytes # (1.0-4.8) k/uL Monocytes # (0-1.0) k/uL Eosinophils # (0-0.7) k/uL Basophils # (0-0.2) k/uL PT (9.0-12.0) sec INR (<1.2) APTT (22.0-30.0) sec D-Dimer (<0.60) mg/L FEU Sodium (137-145) mmol/L Potassium (3.5-5.1) mmol/L Chloride (98-107) mmol/L Carbon Dioxide (22-30) mmol/L Anion Gap mmol/L BUN (7-17) mg/dL Creatinine (0.52-1.04) mg/dL Est GFR (CKD-EPI)AfAm (>60 ml/min/1.73 sqM) Est GFR (CKD-EPI)NonAf (>60 ml/min/1.73 sqM) Glucose (74-99) mg/dL Calcium (8.4-10.2) mg/dL Magnesium (1.6-2.3) mg/dL Total Bilirubin (0.2-1.3) mg/dL AST (14-36) U/L ALT (4-34) U/L Alkaline Phosphatase (38-126) U/L Troponin I <0.012 (0.000-0.034) ng/mL Total Protein (6.3-8.2) g/dL Albumin (3.5-5.0) g/dL Urine HCG, Qual Not Detected (Not Detectd) Disposition Clinical Impression: Chest pain, Musculoskeletal chest pain Disposition: HOME SELF-CARE Condition: Good Instructions (If sedation given, give patient instructions): Chest Pain (ED), Costochondritis (ED) Is patient prescribed a controlled substance at d/c from ED?: No Referrals: None,Stated [Primary Care Provider] - 1-2 days Brian Mai [STAFF PHYSICIAN] - 1-2 days Time of Disposition: 23:15
[2019-08-18 22:53] LABS: Partial Thromboplastin Time 22.9 sec (22.0-30.0); Prothrombin Time 10.3 sec (9.0-12.0)
[2019-08-18 23:04] LABS: D-Dimer <0.17 mg/L FEU (<0.60)
--- NOTE | 2019-08-18 23:10 | XR ---
EXAMINATION TYPE: XR chest 2V DATE OF EXAM: 08/18/2019 COMPARISON: 06/12/2016 HISTORY: Chest pain TECHNIQUE: FINDINGS: Heart and mediastinum are normal. Lungs are clear. Diaphragm is normal. Bony thorax appears normal. IMPRESSION: Normal chest.
[2019-08-18 23:18] LABS: ALT 14 U/L (4-34); AST 20 U/L (14-36); African American GFR (CKD) >90 (>60 ml/min/1.73 sqM); Albumin 4.7 g/dL (3.5-5.0); Alkaline Phosphatase 90 U/L (38-126); Anion Gap 10 mmol/L; Blood Urea Nitrogen 20 mg/dL (7-17); Calcium 9.5 mg/dL (8.4-10.2); Carbon Dioxide 27 mmol/L (22-30); Chloride 102 mmol/L (98-107); Glucose 115 mg/dL (74-99); Non-African American GFR(CKD) >90 (>60 ml/min/1.73 sqM); Sodium 139 mmol/L (137-145); Total Bilirubin 0.8 mg/dL (0.2-1.3); Total Protein 7.9 g/dL (6.3-8.2)
[2019-08-18 23:25] LABS: Potassium 4.3 mmol/L (3.5-5.1)
[2019-08-18 23:26] VITALS: BP 117/81; PULSE 97
== END 2019-08-18 23:34 | disposition home or self-care (01) ==
LOC: EC 22:01
DX: R07.89 Other chest pain (principal); R00.0 Tachycardia, unspecified; Z88.5 Allergy status to narcotic agent
CPT/HCPCS: 36415; 71046; 80053; 81025; 83735; 84484; 85025; 85379; 85610; 85730; 93005; 99285

== ENCOUNTER 2019-12-25 19:49 | Emergency (ER) | payer OTHER ==
[2019-12-25 19:58] VITALS: RESP 16; TEMP 98.4
[2019-12-25] MEDS ORDERED: SODIUM CHLORIDE 0.9% 1,000 ML IV ONE (20:22)
[2019-12-25] MEDS ORDERED: ONDANSETRON 4 MG/2 ML VIAL IVP STA (20:23)
[2019-12-25 21:19] LABS: Basophils % (A) 0 %; Eosinophils # (A) 0.1 k/uL (0-0.7); Eosinophils % (A) 1 %; HCT 39.7 % (34.0-46.0); HGB 13.6 gm/dL (11.4-16.0); Lymphocytes # (A) 1.2 k/uL (1.0-4.8); Lymphocytes % (A) 17 %; MCH 29.6 pg (25.0-35.0); MCHC 34.2 g/dL (31.0-37.0); MCV 86.4 fL (80.0-100.0); Mean Platelet Volume 6.7; Monocytes # (A) 0.3 k/uL (0-1.0); Monocytes % (A) 4 %; Neutrophils # (A) 5.4 k/uL (1.3-7.7); Neutrophils % (A) 77 %; Platelet Count 221 k/uL (150-450); RBC 4.59 m/uL (3.80-5.40); RDW 12.3 % (11.5-15.5); WBC 7.1 k/uL (3.8-10.6)
[2019-12-25 21:29] LABS: ALT 20 U/L (4-34); AST 32 U/L (14-36); African American GFR (CKD) >90 (>60 ml/min/1.73 sqM); Albumin 5.1 g/dL (3.5-5.0); Alkaline Phosphatase 68 U/L (38-126); Anion Gap 14 mmol/L; Blood Urea Nitrogen 11 mg/dL (7-17); Calcium 9.9 mg/dL (8.4-10.2); Carbon Dioxide 18 mmol/L (22-30); Chloride 104 mmol/L (98-107); Glucose 97 mg/dL (74-99); Non-African American GFR(CKD) >90 (>60 ml/min/1.73 sqM); Potassium 4.5 mmol/L (3.5-5.1); Sodium 136 mmol/L (137-145); Total Bilirubin 1.5 mg/dL (0.2-1.3); Total Protein 8.5 g/dL (6.3-8.2)
[2019-12-25 22:15] LABS: Appearance,Urine Turbid (Clear); Bacteria,Urine Many /hpf; Bilirubin,Urine Negative (Negative); Blood,Urine Trace (Negative); Color,Urine Yellow; Glucose,Urine (UA) Negative (Negative); Ketones,Urine 4+ (Negative); Leukocyte Esterase,Urine Large (Negative); Mucus,Urine Many /hpf; Nitrite,Urine Positive (Negative); Protein,Urine 1+ (Negative); RBC,Urine 7 /hpf (0-5); Specific Gravity,Urine 1.019 (1.001-1.035); Squamous Epithelial Cell,Urine 18 /hpf (0-4); WBC,Urine >182 /hpf (0-5)
--- NOTE | 2019-12-25 22:20 | ED ---
General Adult HPI - General Chief complaint: Nausea/Vomiting/Diarrhea Stated complaint: 7 Wks Preg, Vomiting Time Seen by Provider: 12/25/19 20:02 Source: patient Mode of arrival: ambulatory Limitations: no limitations - History of Present Illness Initial comments: 24-year-old female presents to the emergency department with complaints of persistent nausea and vomiting throughout the day. Patient states she is 7-1/2 weeks ; LMP 11/02/2019. She is G3, P2. Per her OB's recommendation she tried taking Unisom and vitamin B6, but had no improvement of symptoms and felt too groggy. States she is able to tolerate Gatorade and small portions of meals intermittently. Denies any abdominal pain, urinary symptoms, or vaginal bleeding or discharge. Patient denies any recent rash, fever, chills, cough, shortness of breath, chest pain, diarrhea, constipation, back pain, numbness, tingling, dizziness, weakness, headache, visual changes, or any other complaints. - Related Data Previous Rx's Medication Instructions Recorded Ciprofloxacin HCl [Cipro] 500 mg PO Q12HR 10 Days #20 tablet 10/24/18 Cephalexin [Keflex] 500 mg PO Q6HR #40 cap 12/25/19 Metoclopramide [Reglan] 10 mg PO Q8H PRN #25 tab 12/25/19 Allergies Allergy/AdvReac Type Severity Reaction Status Date / Time codeine AdvReac Nausea & Verified 12/25/19 19:57 Vomiting Review of Systems ROS Statement: Those systems with pertinent positive or pertinent negative responses have been documented in the HPI. ROS Other: All systems not noted in ROS Statement are negative. Past Medical History Past Medical History: Syncope Additional Past Medical History / Comment(s): SYNCOPE; gestational diabetesdiet controlled previous History of Any Multi-Drug Resistant Organisms: None Reported Additional Past Surgical History / Comment(s): KIDNEY SURGERY Past Anesthesia/Blood Transfusion Reactions: No Reported Reaction Past Psychological History: No Psychological Hx Reported Smoking Status: Former smoker Past Alcohol Use History: Occasional Past Drug Use History: Marijuana - Past Family History Mother Family Medical History: No Reported History Brother(s) Additional Family Medical History / Comment(s): Autistic General Exam Limitations: no limitations General appearance: alert, in no apparent distress, other (This is a well- developed, well-nourished female who presents in no acute distress. Initial vital signs include temperature 98.4F, pulse 90, respirations 16, blood pressure 117/81, pulse ox 100% on room air.) ENT exam: Present: normal exam, normal oropharynx, mucous membranes moist Respiratory exam: Present: normal lung sounds bilaterally. Absent: respiratory distress, wheezes, rales, rhonchi, stridor Cardiovascular Exam: Present: regular rate, normal rhythm, normal heart sounds. Absent: systolic murmur, diastolic murmur, rubs, gallop, clicks GI/Abdominal exam: Present: soft, normal bowel sounds. Absent: distended, tenderness, guarding, rebound, rigid Neurological exam: Present: alert, oriented X3, CN II-XII intact Psychiatric exam: Present: normal affect, normal mood Skin exam: Present: warm, dry, intact, normal color. Absent: rash Course Vital Signs 12/25/19 12/25/19 19:54 22:30 Temperature 98.4 F Pulse Rate 90 85 Respiratory 16 16 Rate Blood Pressure 117/81 108/64 O2 Sat by Pulse 100 100 Oximetry Medical Decision Making - Medical Decision Making This is a 24-year-old female who presents to the emergency Department with complaints of persistent nausea and vomiting. Patient is 7-1/2 weeks ; last menstrual period of 11/02/2019. States she has attempted [id number] therapy recommended by her OB with little to no results. Denies any other symptoms. Patient was given 1 L of IV fluids and 4 mg of Zofran IV with improvement in symptoms. Declined the option of Reglan and Benadryl in place of Zofran due to the sedating effects. We did discuss risk of zofran, she verbaliz ed understanding and requested to receive the medication anyway. Urinalysis was positive for infection and patient was treated with 1 gram of Rocephin. She had no fever, CVA tenderness, and vomiting did cease in the ED. Patient was discharged home with prescriptions for Keflex to treat her urinary tract infection and Reglan to alleviate nausea. Patient was instructed to call her [facility] in the morning to schedule follow-up the next 1-2 days for recheck. Patient was instructed to return to the emergency department if she was unable to tolerate the antibiotic, developed fever, back or flank pain, hematuria, or lower abdominal cramping. Patient verbalizes understanding and agrees with this plan. - Lab Data Result diagrams: 12/25/19 20:56 12/25/19 20:56 Lab Results 12/25/19 12/25/19 12/25/19 Range/Units 20:56 20:56 20:56 WBC 7.1 (3.8-10.6) k/uL RBC 4.59 (3.80-5.40) m/uL Hgb 13.6 (11.4-16.0) gm/dL Hct 39.7 (34.0-46.0) % MCV 86.4 (80.0-100.0) fL MCH 29.6 (25.0-35.0) pg MCHC 34.2 (31.0-37.0) g/dL RDW 12.3 (11.5-15.5) % Plt Count 221 (150-450) k/uL Neutrophils % 77 % Lymphocytes % 17 % Monocytes % 4 % Eosinophils % 1 % Basophils % 0 % Neutrophils # 5.4 (1.3-7.7) k/uL Lymphocytes # 1.2 (1.0-4.8) k/uL Monocytes # 0.3 (0-1.0) k/uL Eosinophils # 0.1 (0-0.7) k/uL Basophils # 0.0 (0-0.2) k/uL Sodium 136 L (137-145) mmol/L Potassium 4.5 (3.5-5.1) mmol/L Chloride 104 (98-107) mmol/L Carbon Dioxide 18 L (22-30) mmol/L Anion Gap 14 mmol/L BUN 11 (7-17) mg/dL Creatinine 0.47 L (0.52-1.04) mg/dL Est GFR (CKD-EPI)AfAm >90 (>60 ml/min/1.73 sqM) Est GFR (CKD-EPI)NonAf >90 (>60 ml/min/1.73 sqM) Glucose 97 (74-99) mg/dL Calcium 9.9 (8.4-10.2) mg/dL Total Bilirubin 1.5 H (0.2-1.3) mg/dL AST 32 (14-36) U/L ALT 20 (4-34) U/L Alkaline Phosphatase 68 (38-126) U/L Total Protein 8.5 H (6.3-8.2) g/dL Albumin 5.1 H (3.5-5.0) g/dL Lipase 79 (23-300) U/L Urine Color Yellow Urine Appearance Turbid H (Clear) Urine pH 6.0 (5.0-8.0) Ur Specific [place] 1.019 (1.001-1.035) Urine Protein 1+ H (Negative) Urine Glucose (UA) Negative (Negative) Urine Ketones 4+ H (Negative) Urine Blood Trace H (Negative) Urine Nitrite Positive H (Negative) Urine Bilirubin Negative (Negative) Urine Urobilinogen 8.0 (<2.0) mg/dL Ur Leukocyte Esterase Large H (Negative) Urine RBC 7 H (0-5) /hpf Urine WBC >182 H (0-5) /hpf Urine WBC Clumps Many H (None) /hpf Ur Squamous Epith Cells 18 H (0-4) /hpf Urine Bacteria Many H (None) /hpf Urine Mucus Many H (None) /hpf Disposition Clinical Impression: Urinary tract infection during , Vomiting during Disposition: HOME SELF-CARE Condition: Good Instructions (If sedation given, give patient instructions): Acute Nausea and Vomiting (ED), Urinary Tract Infection in (ED) Additional Instructions: Follow-up with [facility] as soon as possible. Call in the morning to explain your emergency visit. Take the antibiotic as prescribed. Continue to eat and drink in small portions. Return to the emergency Department with worsening condition or if unable to tolerate antibiotic. Prescriptions: Cephalexin [Keflex] 500 mg PO Q6HR #40 cap Metoclopramide [Reglan] 10 mg PO Q8H PRN #25 tab PRN Reason: Vomiting Is patient prescribed a controlled substance at d/c from ED?: No Referrals: Angelo Bales MD [Primary Care Provider] - 1-2 days Jose Guerin DO [Doctor of Osteopathic Medicine] - 1-2 days Time of Disposition: 22:44
[2019-12-25] MEDS ORDERED: cefTRIAXone IN SWFI 1,000 MG/10 ML SYRINGE IVP ONE (22:30)
[2019-12-25 22:52] VITALS: BP 108/64; PULSE 85
== END 2019-12-25 22:50 | disposition home or self-care (01) ==
LOC: EC 19:49
DX: O23.41 Unspecified infection of urinary tract in pregnancy, first trimester (principal); O21.9 Vomiting of pregnancy, unspecified; Z87.891 Personal history of nicotine dependence; Z88.5 Allergy status to narcotic agent; Z3A.01 Less than 8 weeks gestation of pregnancy; Z86.32 Personal history of gestational diabetes
CPT/HCPCS: 99284; 96374; 96375; 96361; 36415; 80053; 83690; 85025; 81001; 87086; J2405; J0696

== ENCOUNTER 2020-01-07 18:18 | Emergency (ER) | payer OTHER ==
[2020-01-07] MEDS ORDERED: SODIUM CHLORIDE 0.9% 2,000 ML IV STA (18:34)
[2020-01-07] MEDS ORDERED: ONDANSETRON 4 MG/2 ML VIAL IVP STA (18:34)
--- NOTE | 2020-01-07 18:43 | ED ---
General Adult HPI - General Chief complaint: Nausea/Vomiting/Diarrhea Stated complaint: 9WKS PREG NAUSEA,VOMITING Time Seen by Provider: 01/07/20 18:27 Source: patient, RN notes reviewed Mode of arrival: ambulatory Limitations: no limitations - History of Present Illness Initial comments: 24-year-old female with a past medical history of syncope, gestational diabetes currently 9 weeks presents to the emergency room for a chief complaint of nausea vomiting. Patient reports that she has been nauseous and vomiting for the past 3 days. She states this happened a few weeks ago as well and she was found have a severe urinary tract infection. She states her nausea resolved however restarted about 3 days ago. She has not been able to keep down any liquids or solids. Patient denies any abdominal pain cramping or vaginal bleeding. She has no other complaints. She is due to have an ultrasound on January 16.Patient has no other complaints at this time including shortness of breath, chest pain, abdominal pain, headache, or visual changes. - Related Data Previous Rx's Medication Instructions Recorded Ciprofloxacin HCl [Cipro] 500 mg PO Q12HR 10 Days #20 tablet 10/24/18 Cephalexin [Keflex] 500 mg PO Q6HR #40 cap 12/25/19 Metoclopramide [Reglan] 10 mg PO Q8H PRN #25 tab 12/25/19 predniSONE 50 mg PO DAILY #4 tablet 01/07/20 Allergies Allergy/AdvReac Type Severity Reaction Status Date / Time codeine AdvReac Nausea & Verified 12/25/19 19:57 Vomiting Review of Systems ROS Statement: Those systems with pertinent positive or pertinent negative responses have been documented in the HPI. ROS Other: All systems not noted in ROS Statement are negative. Past Medical History Past Medical History: Syncope Additional Past Medical History / Comment(s): SYNCOPE; gestational diabetesdiet controlled previous History of Any Multi-Drug Resistant Organisms: None Reported Additional Past Surgical History / Comment(s): KIDNEY SURGERY Past Anesthesia/Blood Transfusion Reactions: No Reported Reaction Past Psychological History: No Psychological Hx Reported Smoking Status: Former smoker Past Alcohol Use History: None Reported Past Drug Use History: None Reported - Past Family History Mother Family Medical History: No Reported History Brother(s) Additional Family Medical History / Comment(s): Autistic General Exam Limitations: no limitations General appearance: alert, in no apparent distress Head exam: Present: atraumatic, normocephalic, normal inspection Eye exam: Present: normal appearance, PERRL, EOMI. Absent: scleral icterus, conjunctival injection, periorbital swelling ENT exam: Present: normal exam, mucous membranes moist Neck exam: Present: normal inspection, full ROM. Absent: tenderness, meningismus, lymphadenopathy Respiratory exam: Present: normal lung sounds bilaterally. Absent: respiratory distress, wheezes, rales, rhonchi, stridor Cardiovascular Exam: Present: regular rate, normal rhythm, normal heart sounds. Absent: bradycardia, tachycardia, irregular rhythm GI/Abdominal exam: Present: soft, normal bowel sounds. Absent: distended, tenderness, guarding, rebound, rigid Neurological exam: Present: alert Course Vital Signs 01/07/20 18:22 Temperature 98.4 F Pulse Rate 108 H Respiratory 18 Rate Blood Pressure 124/77 O2 Sat by Pulse 98 Oximetry Medical Decision Making - Medical Decision Making Patient was given Benadryl Pepcid and prednisone. Throughout her stay she had significant improvement in hives. She did not develop any shortness of breath, chest pain, or swelling of the lips tongue or throat. No evidence of angioedema. At this time patient can be discharged home. She will follow up with primary care. If she has any worsening symptoms she will return to the emergency room. Strict return parameters were discussed. Disposition Clinical Impression: Urticaria Disposition: HOME SELF-CARE Condition: Good Instructions (If sedation given, give patient instructions): Urticaria (ED) Additional Instructions: Take Benadryl as needed every 6 hours. Take prednisone as directed. You were given some tonight so you can start this prescription tomorrow. Avoid hot water or warm blankets as this may worsen the rash. If you have any worsening symptoms such as swelling of the lips tongue or throat, shortness of breath, or chest pain return immediately to the emergency room. Prescriptions: predniSONE 50 mg PO DAILY #4 tablet Is patient prescribed a controlled substance at d/c from ED?: No Referrals: Angelo Bales MD [Primary Care Provider] - 1-2 days Time of Disposition: 19:26
[2020-01-07 19:25] LABS: Basophils % (A) 0 %; Eosinophils # (A) 0.1 k/uL (0-0.7); Eosinophils % (A) 1 %; HCT 38.2 % (34.0-46.0); Lymphocytes % (A) 15 %; MCH 29.7 pg (25.0-35.0); MCV 87.4 fL (80.0-100.0); Mean Platelet Volume 7.7; Monocytes # (A) 0.3 k/uL (0-1.0); Monocytes % (A) 5 %; Neutrophils # (A) 5.1 k/uL (1.3-7.7); Neutrophils % (A) 78 %; Platelet Count 187 k/uL (150-450); RBC 4.37 m/uL (3.80-5.40); RDW 12.2 % (11.5-15.5); WBC 6.6 k/uL (3.8-10.6)
[2020-01-07 19:35] LABS: ALT 14 U/L (4-34); AST 19 U/L (14-36); African American GFR (CKD) >90 (>60 ml/min/1.73 sqM); Albumin 4.6 g/dL (3.5-5.0); Alkaline Phosphatase 61 U/L (38-126); Amylase 49 U/L (30-110); Anion Gap 12 mmol/L; Blood Urea Nitrogen 12 mg/dL (7-17); Calcium 9.9 mg/dL (8.4-10.2); Carbon Dioxide 22 mmol/L (22-30); Chloride 102 mmol/L (98-107); Glucose 110 mg/dL (74-99); Non-African American GFR(CKD) >90 (>60 ml/min/1.73 sqM); Potassium 4.3 mmol/L (3.5-5.1); Sodium 136 mmol/L (137-145); Total Bilirubin 1.5 mg/dL (0.2-1.3); Total Protein 7.7 g/dL (6.3-8.2)
[2020-01-07 19:43] VITALS: TEMP 99
[2020-01-07 20:00] LABS: Appearance,Urine Turbid (Clear); Bacteria,Urine Occasional /hpf; Bilirubin,Urine Negative (Negative); Blood,Urine Moderate (Negative); Color,Urine Yellow; Glucose,Urine (UA) Negative (Negative); Ketones,Urine 2+ (Negative); Leukocyte Esterase,Urine Large (Negative); Mucus,Urine Many /hpf; Nitrite,Urine Positive (Negative); PH, Urine 6.5 (5.0-8.0); Protein,Urine 1+ (Negative); RBC,Urine 121 /hpf (0-5); Squamous Epithelial Cell,Urine 7 /hpf (0-4); WBC,Urine >182 /hpf (0-5)
--- NOTE | 2020-01-07 20:39 | ED ---
Medical Decision Making - Medical Decision Making CBC CMP unremarkable. However patient does have evidence of urinary tract infection. She has positive nitrite with 2+ ketones and 182 white blood cells. She did not have any abdominal pain or flank pain. 2 weeks ago patient had similar urinalysis and was started on Keflex. Upon review of the culture Keflex insensitive. Patient apparently received Cefpodoxime 7 days ago by her [employer] instead of Keflex. She has been asymptomatic aside from the nausea. I did perform a bedside ultrasound which showed intrauterine with heart rate of 182. Dr. Molina spoke with Dr. Hardin who recommends straight catheterization for accurate sample. Dr. Molina spoke with infectious disease specialist Dr. Zavaleta who recommends starting patient on Ceftin after giving her 2g Rocephin in the emergency room. Ceftin is a second-generation cephalosporin which is sensitive class on previous culture. Straight catheterization is somewhat cocoa bean cleaner however still appears to show evidence of a urinary tract infection. I did speak with lab and this will be the urine that is cultured. Patient does not have abdominal pain or CVA tenderness. No history of fevers. No evidence for a pyelonephritis at this time. Patient will be started on Ceftin as per Dr. Zavaleta's recommendations. I did discuss she is to follow-up with Dr. Guerin this week to ensure that this is resolving. - Lab Data Result diagrams: 01/07/20 18:43 01/07/20 18:43 Lab Results 01/07/20 01/07/20 01/07/20 Range/Units 18:43 18:43 18:43 WBC 6.6 (3.8-10.6) k/uL RBC 4.37 (3.80-5.40) m/uL Hgb 13.0 (11.4-16.0) gm/dL Hct 38.2 (34.0-46.0) % MCV 87.4 (80.0-100.0) fL MCH 29.7 (25.0-35.0) pg MCHC 34.0 (31.0-37.0) g/dL RDW 12.2 (11.5-15.5) % Plt Count 187 (150-450) k/uL Neutrophils % 78 % Lymphocytes % 15 % Monocytes % 5 % Eosinophils % 1 % Basophils % 0 % Neutrophils # 5.1 (1.3-7.7) k/uL Lymphocytes # 1.0 (1.0-4.8) k/uL Monocytes # 0.3 (0-1.0) k/uL Eosinophils # 0.1 (0-0.7) k/uL Basophils # 0.0 (0-0.2) k/uL Sodium 136 L (137-145) mmol/L Potassium 4.3 (3.5-5.1) mmol/L Chloride 102 (98-107) mmol/L Carbon Dioxide 22 (22-30) mmol/L Anion Gap 12 mmol/L BUN 12 (7-17) mg/dL Creatinine 0.51 L (0.52-1.04) mg/dL Est GFR (CKD-EPI)AfAm >90 (>60 ml/min/1.73 sqM) Est GFR (CKD-EPI)NonAf >90 (>60 ml/min/1.73 sqM) Glucose 110 H (74-99) mg/dL Calcium 9.9 (8.4-10.2) mg/dL Total Bilirubin 1.5 H (0.2-1.3) mg/dL AST 19 (14-36) U/L ALT 14 (4-34) U/L Alkaline Phosphatase 61 (38-126) U/L Total Protein 7.7 (6.3-8.2) g/dL Albumin 4.6 (3.5-5.0) g/dL Amylase 49 (30-110) U/L Lipase 121 (23-300) U/L Urine Color Yellow Urine Appearance Turbid H (Clear) Urine pH 6.5 (5.0-8.0) Ur Specific [place] 1.020 (1.001-1.035) Urine Protein 1+ H (Negative) Urine Glucose (UA) Negative (Negative) Urine Ketones 2+ H (Negative) Urine Blood Moderate H (Negative) Urine Nitrite Positive H (Negative) Urine Bilirubin Negative (Negative) Urine Urobilinogen 4.0 (<2.0) mg/dL Ur Leukocyte Esterase Large H (Negative) Urine RBC 121 H (0-5) /hpf Urine WBC >182 H (0-5) /hpf Urine WBC Clumps Many H (None) /hpf Ur Squamous Epith Cells 7 H (0-4) /hpf Amorphous Sediment (None) /hpf Urine Bacteria Occasional H (None) /hpf Urine Mucus Many H (None) /hpf Urine HCG, Qual (Not Detectd) 01/07/20 01/07/20 Range/Units 18:43 21:09 WBC (3.8-10.6) k/uL RBC (3.80-5.40) m/uL Hgb (11.4-16.0) gm/dL Hct (34.0-46.0) % MCV (80.0-100.0) fL MCH (25.0-35.0) pg MCHC (31.0-37.0) g/dL RDW (11.5-15.5) % Plt Count (150-450) k/uL Neutrophils % % Lymphocytes % % Monocytes % % Eosinophils % % Basophils % % Neutrophils # (1.3-7.7) k/uL Lymphocytes # (1.0-4.8) k/uL Monocytes # (0-1.0) k/uL Eosinophils # (0-0.7) k/uL Basophils # (0-0.2) k/uL Sodium (137-145) mmol/L Potassium (3.5-5.1) mmol/L Chloride (98-107) mmol/L Carbon Dioxide (22-30) mmol/L Anion Gap mmol/L BUN (7-17) mg/dL Creatinine (0.52-1.04) mg/dL Est GFR (CKD-EPI)AfAm (>60 ml/min/1.73 sqM) Est GFR (CKD-EPI)NonAf (>60 ml/min/1.73 sqM) Glucose (74-99) mg/dL Calcium (8.4-10.2) mg/dL Total Bilirubin (0.2-1.3) mg/dL AST (14-36) U/L ALT (4-34) U/L Alkaline Phosphatase (38-126) U/L Total Protein (6.3-8.2) g/dL Albumin (3.5-5.0) g/dL Amylase (30-110) U/L Lipase (23-300) U/L Urine Color Yellow Urine Appearance Cloudy H (Clear) Urine pH 6.5 (5.0-8.0) Ur Specific [place] 1.019 (1.001-1.035) Urine Protein Trace H (Negative) Urine Glucose (UA) Negative (Negative) Urine Ketones 3+ H (Negative) Urine Blood Moderate H (Negative) Urine Nitrite Positive H (Negative) Urine Bilirubin Negative (Negative) Urine Urobilinogen 4.0 (<2.0) mg/dL Ur Leukocyte Esterase Large H (Negative) Urine RBC 82 H (0-5) /hpf Urine WBC 84 H (0-5) /hpf Urine WBC Clumps (None) /hpf Ur Squamous Epith Cells 1 (0-4) /hpf Amorphous Sediment Rare H (None) /hpf Urine Bacteria Occasional H (None) /hpf Urine Mucus Occasional H (None) /hpf Urine HCG, Qual Detected (Not Detectd) Disposition Clinical Impression: Urinary tract infection Disposition: HOME SELF-CARE Condition: Good Instructions (If sedation given, give patient instructions): Urinary Tract Infection in (ED) Additional Instructions: Please take Ceftin instead of previous antibiotic. Please follow-up with [employer] this week. If you have any worsening symptoms such as back pain, abdominal pain, vaginal bleeding or fevers return to the emergency room. Prescriptions: Cefuroxime Axetil [Ceftin] 500 mg PO BID 10 Days #20 tab Is patient prescribed a controlled substance at d/c from ED?: No Referrals: Angelo Bales MD [Primary Care Provider] - 1-2 days Jose Guerin DO [Doctor of Osteopathic Medicine] - 1-2 days Time of Disposition: 22:02
[2020-01-07] MEDS ORDERED: cefTRIAXone IN SWFI 1,000 MG/10 ML SYRINGE IVP STA (21:05)
[2020-01-07 21:46] LABS: Amorphous Sediment,Urine Rare /hpf; Appearance,Urine Cloudy (Clear); Bacteria,Urine Occasional /hpf; Bilirubin,Urine Negative (Negative); Blood,Urine Moderate (Negative); Color,Urine Yellow; Glucose,Urine (UA) Negative (Negative); Ketones,Urine 3+ (Negative); Leukocyte Esterase,Urine Large (Negative); Mucus,Urine Occasional /hpf; Nitrite,Urine Positive (Negative); PH, Urine 6.5 (5.0-8.0); Protein,Urine Trace (Negative); RBC,Urine 82 /hpf (0-5); Specific Gravity,Urine 1.019 (1.001-1.035); Squamous Epithelial Cell,Urine 1 /hpf (0-4); WBC,Urine 84 /hpf (0-5)
[2020-01-07 22:13] VITALS: BP 122/78; PULSE 90; RESP 17
== END 2020-01-07 22:09 | disposition home or self-care (01) ==
LOC: EC 18:18
DX: O23.41 Unspecified infection of urinary tract in pregnancy, first trimester (principal); O99.711 Diseases of the skin and subcutaneous tissue complicating pregnancy, first trimester; L50.9 Urticaria, unspecified; Z87.891 Personal history of nicotine dependence; Z88.5 Allergy status to narcotic agent; Z3A.09 9 weeks gestation of pregnancy
CPT/HCPCS: 36415; 80053; 82150; 83690; 85025; 81001; 81025; 87086; 87077; 87186; 99284; 96374; 96375; 96361; J2405; J0696

== ENCOUNTER 2020-01-11 20:21 | Emergency (ER) | payer OTHER ==
[2020-01-11 20:28] VITALS: TEMP 98.5
[2020-01-11] MEDS ORDERED: ONDANSETRON 4 MG/2 ML VIAL IVP STA (21:15)
[2020-01-11] MEDS ORDERED: SODIUM CHLORIDE 0.9% 1,000 ML IV STA (21:15)
[2020-01-11] MEDS ORDERED: FAMOTIDINE 20 MG/2 ML VIAL IV STA (21:16)
[2020-01-11 21:42] LABS: Basophils % (A) 0 %; Eosinophils # (A) 0.1 k/uL (0-0.7); Eosinophils % (A) 1 %; HCT 36.8 % (34.0-46.0); HGB 12.7 gm/dL (11.4-16.0); Lymphocytes # (A) 0.8 k/uL (1.0-4.8); Lymphocytes % (A) 14 %; MCH 29.4 pg (25.0-35.0); MCHC 34.5 g/dL (31.0-37.0); MCV 85.3 fL (80.0-100.0); Mean Platelet Volume 6.8; Monocytes # (A) 0.2 k/uL (0-1.0); Monocytes % (A) 3 %; Neutrophils # (A) 4.8 k/uL (1.3-7.7); Neutrophils % (A) 81 %; Platelet Count 176 k/uL (150-450); RBC 4.31 m/uL (3.80-5.40); RDW 12.2 % (11.5-15.5)
--- NOTE | 2020-01-11 21:47 | ED ---
Abdominal Pain HPI - General Chief Complaint: Abdominal Pain Stated Complaint: Abdominal pain Time Seen by Provider: 01/11/20 20:33 Source: patient Mode of arrival: ambulatory Limitations: no limitations - History of Present Illness Initial Comments: 24-year-old female patient presents to the emergency department today for evaluation of midepigastric abdominal pain radiating to the right side. Patient states this started earlier today. States she has had nausea and vomiting with this. States her vomitus is frothy. She is unable to keep down any food or fluids. Denies taking any medication for her symptoms. Denies fever or chills. She states she is currently being treated for urinary tract infection, she is taking her antibiotics. She is also 10 weeks , G3, P2. Denies any abnormal pelvic pain, vaginal discharge, vaginal bleeding. States she has had a ultrasound confirming intrauterine . Patient is seeing Dr. Guerin for OBGYN services. She denies any recent travel or sick contacts. Denies any previous abdominal surgeries. Patient denies any recent rash, cough, shortness of breath, chest pain, diarrhea, constipation, back pain, numbness, tingling, dizziness, weakness, headache, visual changes, or any other complaints. - Related Data Previous Rx's Medication Instructions Recorded Ciprofloxacin HCl [Cipro] 500 mg PO Q12HR 10 Days #20 tablet 10/24/18 Cephalexin [Keflex] 500 mg PO Q6HR #40 cap 12/25/19 Metoclopramide [Reglan] 10 mg PO Q8H PRN #25 tab 12/25/19 Cefuroxime Axetil [Ceftin] 500 mg PO BID 10 Days #20 tab 01/07/20 Ondansetron [Zofran ODT] 4 mg PO Q8HR PRN #10 tab 01/12/20 Allergies Allergy/AdvReac Type Severity Reaction Status Date / Time codeine AdvReac Nausea & Verified 01/11/20 20:28 Vomiting Review of Systems ROS Statement: Those systems with pertinent positive or pertinent negative responses have been documented in the HPI. ROS Other: All systems not noted in ROS Statement are negative. Past Medical History Past Medical History: Syncope Additional Past Medical History / Comment(s): SYNCOPE; gestational diabetesdiet controlled previous History of Any Multi-Drug Resistant Organisms: None Reported Additional Past Surgical History / Comment(s): KIDNEY SURGERY Past Anesthesia/Blood Transfusion Reactions: No Reported Reaction Past Psychological History: No Psychological Hx Reported Smoking Status: Former smoker Past Alcohol Use History: None Reported Past Drug Use History: None Reported - Past Family History Mother Family Medical History: No Reported History Brother(s) Additional Family Medical History / Comment(s): Autistic General Exam Limitations: no limitations General appearance: alert, in no apparent distress, other (This is a well- developed, well-nourished adult female patient in no acute distress. Vital signs upon presentation are temperature 98.5F, pulse 104, respirations 18, blood pressure 115/88, pulse ox 98% on room air.) Eye exam: Present: normal appearance, PERRL, EOMI. Absent: scleral icterus, conjunctival injection, periorbital swelling ENT exam: Present: normal exam, normal oropharynx, mucous membranes moist Respiratory exam: Present: normal lung sounds bilaterally. Absent: respiratory distress, wheezes, rales, rhonchi, stridor Cardiovascular Exam: Present: regular rate, normal rhythm, normal heart sounds. Absent: systolic murmur, diastolic murmur, rubs, gallop, clicks GI/Abdominal exam: Present: soft, tenderness (Midepigastric), normal bowel s ounds. Absent: distended, guarding, rebound, rigid Neurological exam: Present: alert, oriented X3, CN II-XII intact Psychiatric exam: Present: normal affect, normal mood Skin exam: Present: warm, dry, intact, normal color. Absent: rash Course Vital Signs 01/11/20 01/12/20 20:25 01:25 Temperature 98.5 F Pulse Rate 104 H 98 Respiratory 18 16 Rate Blood Pressure 115/88 122/77 O2 Sat by Pulse 98 98 Oximetry Medical Decision Making - Medical Decision Making 24-year-old female patient who is 10 weeks with her third child presents to the emergency department today for evaluation of midepigastric discomfort and vomiting. Physical examination did reveal midepigastric right upper quadrant tenderness. Patient is currently being treated for UTI with cefuroxime, she was given this prescription on Monday. She is afebrile. Other vital signs are within normal ranges. Patient had no pelvic pain, vaginal bleeding, or vaginal discharge. Ultrasound of the right upper quadrant abdomen was obtained and showed no evidence for acute abnormalities. She will be discharged to follow-up with her primary care physician and [employer] for recheck as soon as possible. She is requesting prescription of Zofran. We did discuss risks of zofran in , she states she discussed it with her OBGYN who was willing to give her a prescription. Return parameters are discussed in detail. She verbalizes understanding and agrees with this plan. - Lab Data Result diagrams: 01/11/20 21:31 01/11/20 21:31 Lab Results 01/11/20 01/11/20 01/11/20 Range/Units 21:31 21:31 21:31 WBC 6.0 (3.8-10.6) k/uL RBC 4.31 (3.80-5.40) m/uL Hgb 12.7 (11.4-16.0) gm/dL Hct 36.8 (34.0-46.0) % MCV 85.3 (80.0-100.0) fL MCH 29.4 (25.0-35.0) pg MCHC 34.5 (31.0-37.0) g/dL RDW 12.2 (11.5-15.5) % Plt Count 176 (150-450) k/uL Neutrophils % 81 % Lymphocytes % 14 % Monocytes % 3 % Eosinophils % 1 % Basophils % 0 % Neutrophils # 4.8 (1.3-7.7) k/uL Lymphocytes # 0.8 L (1.0-4.8) k/uL Monocytes # 0.2 (0-1.0) k/uL Eosinophils # 0.1 (0-0.7) k/uL Basophils # 0.0 (0-0.2) k/uL Sodium 133 L (137-145) mmol/L Potassium 4.4 (3.5-5.1) mmol/L Chloride 103 (98-107) mmol/L Carbon Dioxide 19 L (22-30) mmol/L Anion Gap 11 mmol/L BUN 13 (7-17) mg/dL Creatinine 0.41 L (0.52-1.04) mg/dL Est GFR (CKD-EPI)AfAm >90 (>60 ml/min/1.73 sqM) Est GFR (CKD-EPI)NonAf >90 (>60 ml/min/1.73 sqM) Glucose 106 H (74-99) mg/dL Calcium 9.9 (8.4-10.2) mg/dL Total Bilirubin 1.7 H (0.2-1.3) mg/dL AST 34 (14-36) U/L ALT 41 H (4-34) U/L Alkaline Phosphatase 76 (38-126) U/L Total Protein 7.9 (6.3-8.2) g/dL Albumin 4.6 (3.5-5.0) g/dL Amylase 55 (30-110) U/L Lipase 213 (23-300) U/L Urine Color Yellow Urine Appearance Cloudy H (Clear) Urine pH 6.0 (5.0-8.0) Ur Specific [place] 1.029 (1.001-1.035) Urine Protein 1+ H (Negative) Urine Glucose (UA) Negative (Negative) Urine Ketones 4+ H (Negative) Urine Blood Negative (Negative) Urine Nitrite Negative (Negative) Urine Bilirubin Negative (Negative) Urine Urobilinogen 4.0 (<2.0) mg/dL Ur Leukocyte Esterase Large H (Negative) Urine RBC 3 (0-5) /hpf Urine WBC 36 H (0-5) /hpf Ur Squamous Epith Cells 10 H (0-4) /hpf Urine Bacteria Occasional H (None) /hpf Hyaline Casts 4 H (0-2) /lpf Urine Mucus Many H (None) /hpf - Radiology Data Radiology results: report reviewed Ultrasound of the right upper quadrant abdomen is obtained. Report was reviewed in its entirety. Impression by Dr. Messer shows no gallstones or dilated ducts. There are some fullness in the right renal pelvis with no atrophy. Disposition Clinical Impression: Abdominal pain, Urinary tract infection Disposition: HOME SELF-CARE Condition: Good Instructions (If sedation given, give patient instructions): Urinary Tract Infection in Women (ED), Abdominal Pain (ED) Additional Instructions: Increase fluids. Rest. Follow-up with your [employer] [facility] and primary care physician for recheck in 1-2 days. Continue antibiotics as directed. Return to the emergency department immediately for any new, worsening, or concerning symptoms. Prescriptions: Ondansetron [Zofran ODT] 4 mg PO Q8HR PRN #10 tab PRN Reason: Nausea Is patient prescribed a controlled substance at d/c from ED?: No Referrals: Angelo Bales MD [Primary Care Provider] - 1-2 days Time of Disposition: 01:08
[2020-01-11 21:55] LABS: ALT 41 U/L (4-34); AST 34 U/L (14-36); African American GFR (CKD) >90 (>60 ml/min/1.73 sqM); Albumin 4.6 g/dL (3.5-5.0); Alkaline Phosphatase 76 U/L (38-126); Amylase 55 U/L (30-110); Anion Gap 11 mmol/L; Blood Urea Nitrogen 13 mg/dL (7-17); Calcium 9.9 mg/dL (8.4-10.2); Carbon Dioxide 19 mmol/L (22-30); Chloride 103 mmol/L (98-107); Glucose 106 mg/dL (74-99); Non-African American GFR(CKD) >90 (>60 ml/min/1.73 sqM); Potassium 4.4 mmol/L (3.5-5.1); Sodium 133 mmol/L (137-145); Total Bilirubin 1.7 mg/dL (0.2-1.3); Total Protein 7.9 g/dL (6.3-8.2)
[2020-01-11 22:45] LABS: Appearance,Urine Cloudy (Clear); Bacteria,Urine Occasional /hpf; Bilirubin,Urine Negative (Negative); Blood,Urine Negative (Negative); Color,Urine Yellow; Glucose,Urine (UA) Negative (Negative); Hyaline Casts,Urine 4 /lpf (0-2); Ketones,Urine 4+ (Negative); Leukocyte Esterase,Urine Large (Negative); Mucus,Urine Many /hpf; Nitrite,Urine Negative (Negative); Protein,Urine 1+ (Negative); RBC,Urine 3 /hpf (0-5); Specific Gravity,Urine 1.029 (1.001-1.035); Squamous Epithelial Cell,Urine 10 /hpf (0-4); WBC,Urine 36 /hpf (0-5)
--- NOTE | 2020-01-11 23:43 | US ---
EXAMINATION TYPE: US abdomen limited DATE OF EXAM: 01/11/2020 COMPARISON: CT 2019 CLINICAL HISTORY: RUQ pain; abn labs. Recent UTI, abdomen pain and N/V EXAM MEASUREMENTS: Liver Length: 12.6 cm Gallbladder Wall: 0.3 cm CBD: 0.4 cm Right Kidney: 10.2 x 5.0 x 4.5 cm Pancreas: obscured by overlying midline bowel gas Liver: wnl Gallbladder: wnl Evidence for sonographic Palacio's sign: no CBD: visualized portions wnl, limited by overlying bowel gas Right Kidney: mild hydronephrosis IMPRESSION: No gallstones or dilated ducts. There is some fullness of the right renal pelvis but no atrophy.
[2020-01-11] MEDS ORDERED: cefTRIAXone IN SWFI 1,000 MG/10 ML SYRINGE IVP STA (23:45)
[2020-01-12] MEDS ORDERED: MAG HYDROX/AL HYDROX/SIMETH 30 ML CUP PO STA (01:09)
[2020-01-12 01:26] VITALS: BP 122/77; PULSE 98; RESP 16
== END 2020-01-12 01:29 | disposition home or self-care (01) ==
LOC: EC 20:21
DX: O23.41 Unspecified infection of urinary tract in pregnancy, first trimester (principal); O21.0 Mild hyperemesis gravidarum; O26.891 Other specified pregnancy related conditions, first trimester; R10.13 Epigastric pain; R10.811 Right upper quadrant abdominal tenderness; Z88.5 Allergy status to narcotic agent; Z3A.10 10 weeks gestation of pregnancy; Z87.891 Personal history of nicotine dependence
CPT/HCPCS: 36415; 80053; 82150; 83690; 85025; 81001; 87086; 76705; 99284; 96374; 96375 ×2; 96361; J2405; J0696

== ENCOUNTER 2020-05-05 16:34 | Outpatient (CLI) | payer OTHER ==
[2020-05-05 16:49] VITALS: BP 131/84; PULSE 114; TEMP 97.5
--- NOTE | 2020-05-05 17:31 | P.PN ---
Progress Note - Text Progress Note Date: 05/05/20 Power Bello is seen and evaluated in labor and delivery. She initially had brought a urine sample to our office and had been complaining of what she described as flank pain on the right side since Monday. The urinalysis in my office with a dipstick was positive for blood and nitrites and due to her history of urinary tract infection during this and with the possibility that this might be pyelonephritis she was sent to labor and delivery for more thorough evaluation. However, on getting to labor and delivery she has no costovertebral angle tenderness on the right she has no fever chills nausea or vomiting and pyelonephritis is very unlikely. We are sending her urine and obtaining a culture and sensitivity. We started her on Keflex for the next 10 days but if the culture and sensitivity show some other antibiotic she made need to be on a longer period since she is Soren had 1 bladder infection the , should discontinue she will be on antibiotics through the remainder of the . She relates that the pain that she was having is not really on her flank but in her epigastrium upper abdomen very close to her gallbladder. Her abdomen is however soft and nontender's and I cannot elicit any tenderness in rest on her gallbladder. That said, she has not had anything to eat since about noon today and therefore will plan to get an ultrasound of her gallbladder and rule out gallstones as the cause for pain. She relates the pain has happened approximately 12-15 times since Monday it is significant when it comes it takes her breath away. She did have high normal blood pressures and she was concerned about the possibility of preeclampsia so pre-clamped labs have been ordered but I'm optimistic that those will also be normal. Should she have gallstones, will plan to have a very thorough diet recommendation for her.
[2020-05-05 17:36] LABS: Appearance,Urine Cloudy (Clear); Bacteria,Urine Few /hpf; Bilirubin,Urine Negative (Negative); Blood,Urine Negative (Negative); Color,Urine Yellow; Glucose,Urine (UA) Negative (Negative); Ketones,Urine Negative (Negative); Leukocyte Esterase,Urine Large (Negative); Mucus,Urine Few /hpf; Nitrite,Urine Negative (Negative); Protein,Urine Trace (Negative); RBC,Urine 3 /hpf (0-5); Squamous Epithelial Cell,Urine 8 /hpf (0-4); WBC,Urine 101 /hpf (0-5)
[2020-05-05 18:13] LABS: Creatinine,Urine Random 119.9 mg/dL; Protein/Creatinine Ratio,Urine 0.1
[2020-05-05 18:44] LABS: Basophils % (A) 0 %; Eosinophils % (A) 1 %; HGB 10.3 gm/dL (11.4-16.0); Lymphocytes # (A) 1.1 k/uL (1.0-4.8); Lymphocytes % (A) 13 %; MCHC 34.4 g/dL (31.0-37.0); Monocytes # (A) 0.4 k/uL (0-1.0); Monocytes % (A) 5 %; Neutrophils # (A) 6.6 k/uL (1.3-7.7); Neutrophils % (A) 80 %; Platelet Count 191 k/uL (150-450); Poikilocytosis Slight; RBC 3.33 m/uL (3.80-5.40); RDW 13.8 % (11.5-15.5); WBC 8.2 k/uL (3.8-10.6)
[2020-05-05 18:48] LABS: ALT 6 U/L (4-34); AST 13 U/L (14-36); African American GFR (CKD) >90 (>60 ml/min/1.73 sqM); Blood Urea Nitrogen 9 mg/dL (7-17); LDH 243 U/L (313-618); Non-African American GFR(CKD) >90 (>60 ml/min/1.73 sqM); Uric Acid 3.9 mg/dL (3.7-7.4)
[2020-05-05 18:54] VITALS: RESP 16
--- NOTE | 2020-05-05 19:34 | US ---
EXAMINATION TYPE: US gallbladder DATE OF EXAM: 05/05/2020 COMPARISON: US, CT Ultrasound 01/11/2020 CLINICAL HISTORY: RUQ Pain. RUQ pain x 3 days. Patient . EXAM MEASUREMENTS: Liver Length: 14.8 cm Gallbladder Wall: 0.25 cm CBD: 0.17 cm Right Kidney: 10.8 x 4.3 x 5.4 cm *Limited due to gas. Pancreas: Not well seen. Liver: No abnormalities seen at this time. Gallbladder: Appears to be anechoic. Evidence for sonographic Palacio's sign: No CBD: Portions seen appear wnl. Right Kidney: Anechoic connecting area seen medially and extending into the right kidney. This shows the appearance of hydronephrosis. IMPRESSION: No gallstones or dilated ducts. There is some right side hydronephrosis that is the same or slightly worse than old exam. No renal at rophy.
--- NOTE | 2020-05-08 16:28 | P.MSEPDOC ---
Presenting Problems - Arrival Data Date of Arrival on Unit: 05/05/20 Time of Arrival on Unit: 16:34 Mode of Transport: Portable - Complaint OB-Reason for Admission/Chief Complaint: Pain Comment: R rib pain x 3 days, none currently Medical History - Information : 3 Para: 2 Term: 2 : 0 Abortions: Spontaneous or Elective: 0 Number of Living Children: 2 - Gestational Age Gestational Age by OTTO (wks/days): 26 Weeks and 3 Days Review of Systems - Review of Systems Constitutional: No problems Breast: No problems ENT: No problems Cardiovascular: No problems Respiratory: No problems Gastrointestinal: No problems Genitourinary: No problems Musculoskeletal: No problems Neurological: No problems Skin: No problems Comment: Pt denies urinary symptoms, however her urine at [facility] was +nitrates +blood, UA sent at [facility] Vital Signs - Temperature Temperature: 97.5 F Temperature Source: Temporal Artery Scan - Pulse Right Brachial Pulse Rate: 114 Pulse Assessment Method: Pulse Oximetry - Respirations Respiratory Rate: 16 Oxygen Delivery Method: Room Air O2 Sat by Pulse Oximetry: 100 - Blood Pressure Right Arm Blood Pressure: 131/84 Blood Pressure Mean: 99 Blood Pressure Source: Automatic Cuff Medical Screen Scoring (Pre) - Cervical Exam Dilation: Exam Deferred Effacement: Exam Deferred Membranes: Intact - Uterine Contractions Frequency: N/A Duration: N/A Intensity: N/A - Maternal Vital Signs Maternal Temperature: N/A Maternal Blood Pressure: N/A Signs of Preeclampsia: N/A Maternal Respirations: N/A - Maternal Trauma Maternal Trauma: N/A - Assessment - Baby A Baseline FHR: 125 Heart Rate - NICHD Category: Category I (Normal) = 0 Position: N/A Station: N/A - Total Score - Baby A Total Score - Baby A: 0 - Total Score - Baby B Total Score - Baby B: 0 - Total Score - Baby C Total Score - Baby C: 0 - Level of Risk - Baby A Level of Risk - Baby A: Low (0-5) - Level of Risk - Baby B Level of Risk - Baby B: Low (0-5) - Level of Risk - Baby C Level of Risk - Baby C: Low (0-5) Physician Notification (Pre) - Physician Notified Physician Notified Date: 05/05/20 Physician Notified Time: 17:00 New Order Received: Yes - Notification Comment Comment: Spk c\Dr. Guerin, aware of pts arrival, orders UA, C&S. PIH labs ordered for baseline. Gallbladder US ordered. Medical Screen Scoring (Post) - Cervical Exam Dilation: Exam Deferred Effacement: Exam Deferred Membranes: Intact - Uterine Contractions Frequency: N/A Duration: N/A Intensity: N/A - Maternal Vital Signs Maternal Temperature: N/A Maternal Blood Pressure: N/A Signs of Preeclampsia: N/A Maternal Respirations: N/A - Pain Assessment Pain Scale Used: Numeric (1 - 10) Pain Intensity: 0 Pain Management Goal: 2 - Maternal Trauma Maternal Trauma: N/A - Total Score Total Score - Baby A: 0 Total Score - Baby B: 0 Total Score - Baby C: 0 - Post Treatment Level of Risk Post Treatment Level of Risk - Baby A: Low (0-5) Post Treatment Level of Risk - Baby B: Low (0-5) Post Treatment Level of Risk - Baby C: Low (0-5) Physician Notification (Post) - Physician Notified Physician Notified Date: 05/05/20 Physician Notified Time: 19:40 Physician/Practitioner Notified:: Dr Guerin Spoke With: Dr Guerin New Order Received: Yes (august discharge) - Notification Comment Comment: Pt discharged with instructions to pickup prescription at [facility] as well as instructions for follow up at her [facility] 05/08 at 9am at her appointment Disposition - Disposition OB Disposition: Discharge to home Discharge Date: 05/05/20 Discharge Time: 19:42 I agree with the RN Medical Screening Exam: Yes Case reviewed; plan agreed upon as documented in EMR&OBIX.: Yes Diagnosis: RELATED CONDITIONS, UNSPECIFIED, SECOND TRIMESTER
== END 2020-05-05 19:42 | disposition home or self-care (01) ==
LOC: FBPOP 16:34
PROVIDERS: ATTEND Obstetrics & Gynecology
DX: O26.92 Pregnancy related conditions, unspecified, second trimester (principal); Z3A.26 26 weeks gestation of pregnancy
CPT/HCPCS: 82570; 84156; 82565; 83615; 84450; 84460; 84520; 84550; 85025; 81001; 87086; 87077; 87186; 76705; G0463; 99215

== ENCOUNTER 2020-05-19 18:17 | Outpatient (CLI) | payer OTHER ==
[2020-05-19 18:56] VITALS: BP 127/73; PULSE 106; RESP 16; TEMP 97.6
--- NOTE | 2020-05-21 10:18 | P.MSEPDOC ---
Presenting Problems - Arrival Data Date of Arrival on Unit: 05/19/20 Time of Arrival on Unit: 18:15 Mode of Transport: Ambulatory - Complaint OB-Reason for Admission/Chief Complaint: Vaginal Bleeding Medical History - Information : 3 Para: 2 Number of Living Children: 2 - Gestational Age Gestational Age by OTTO (wks/days): 28 Weeks and 3 Days Review of Systems - Review of Systems Constitutional: No problems Breast: No problems ENT: No problems Cardiovascular: No problems Respiratory: No problems Gastrointestinal: No problems Genitourinary: No problems Musculoskeletal: No problems Neurological: No problems Skin: No problems Vital Signs - Temperature Temperature: 97.6 F Temperature Source: Temporal Artery Scan - Pulse Right Sitting Brachial Pulse Rate: 106 Pulse Assessment Method: Automatic Cuff - Respirations Respiratory Rate: 16 Oxygen Delivery Method: Room Air O2 Sat by Pulse Oximetry: 100 - Blood Pressure Right Arm Sitting Blood Pressure: 127/73 Blood Pressure Mean: 91 Blood Pressure Source: Automatic Cuff Medical Screen Scoring (Pre) - Cervical Exam Dilation: Exam Deferred Effacement: Exam Deferred - Uterine Contractions Frequency: N/A Duration: N/A Intensity: N/A - Maternal Vital Signs Maternal Temperature: N/A Maternal Blood Pressure: N/A Signs of Preeclampsia: N/A Maternal Respirations: N/A - Maternal Trauma Maternal Trauma: N/A - Assessment - Baby A Baseline FHR: 130 Heart Rate - NICHD Category: Category I (Normal) = 0 NST: Reactive Position: N/A Station: N/A - Total Score - Baby A Total Score - Baby A: 0 - Total Score - Baby B Total Score - Baby B: 0 - Total Score - Baby C Total Score - Baby C: 0 - Level of Risk - Baby A Level of Risk - Baby A: Low (0-5) - Level of Risk - Baby B Level of Risk - Baby B: Low (0-5) - Level of Risk - Baby C Level of Risk - Baby C: Low (0-5) Physician Notification (Pre) - Physician Notified Physician Notified Date: 05/19/20 Physician Notified Time: 18:40 New Order Received: Yes (labs then discharge) Disposition - Disposition OB Disposition: Discharge to home Discharge Date: 05/19/20 Discharge Time: 19:25 I agree with the RN Medical Screening Exam: Yes Case reviewed; plan agreed upon as documented in EMR&OBIX.: Yes Diagnosis: FALSE LABOR AT OR AFTER 37 COMPLETED WEEKS OF GESTATION
== END 2020-05-19 19:26 | disposition home or self-care (01) ==
LOC: FBPOP 18:17
PROVIDERS: ATTEND Obstetrics & Gynecology
DX: O26.893 Other specified pregnancy related conditions, third trimester (principal); Z3A.28 28 weeks gestation of pregnancy
CPT/HCPCS: 59025; 86900; 86901; 86850; G0463; 99213

== ENCOUNTER 2020-06-13 17:33 | Outpatient (CLI) | payer OTHER ==
[2020-06-13 18:31] LABS: Appearance,Urine Cloudy (Clear); Bacteria,Urine Occasional /hpf; Bilirubin,Urine Negative (Negative); Blood,Urine Negative (Negative); Color,Urine Yellow; Glucose,Urine (UA) Negative (Negative); Ketones,Urine Negative (Negative); Leukocyte Esterase,Urine Large (Negative); Mucus,Urine Few /hpf; Nitrite,Urine Positive (Negative); PH, Urine 6.5 (5.0-8.0); Protein,Urine Trace (Negative); Specific Gravity,Urine 1.021 (1.001-1.035); Squamous Epithelial Cell,Urine 1 /hpf (0-4); WBC,Urine 47 /hpf (0-5)
[2020-06-13] MEDS ORDERED: LACTATED RINGERS 1,000 ML IV SCH (18:45)
[2020-06-13 20:21] VITALS: BP 123/82; PULSE 91; RESP 16; TEMP 96.6
--- NOTE | 2020-06-14 07:34 | P.MSEPDOC ---
Presenting Problems - Arrival Data Date of Arrival on Unit: 06/13/20 Time of Arrival on Unit: 17:33 Mode of Transport: Ambulatory - Complaint OB-Reason for Admission/Chief Complaint: Possible Onset of Labor Comment: Pt complains of cramping since last night, cannot time the cramps, says its constant Medical History - Information : 3 Para: 2 Term: 2 : 0 Abortions: Spontaneous or Elective: 0 Number of Living Children: 2 - Gestational Age Gestational Age by OTTO (wks/days): 32 Weeks and 0 Days Review of Systems - Review of Systems Constitutional: No problems Breast: No problems ENT: No problems Cardiovascular: No problems Respiratory: No problems Gastrointestinal: No problems Genitourinary: No problems Musculoskeletal: No problems Neurological: No problems Skin: No problems Vital Signs - Temperature Temperature: 96.6 F Temperature Source: Temporal Artery Scan - Pulse Pulse Oximetery Pulse Rate: 91 Pulse Assessment Method: Automatic Cuff - Respirations Respiratory Rate: 16 Oxygen Delivery Method: Room Air O2 Sat by Pulse Oximetry: 99 - Blood Pressure Right Arm Blood Pressure: 123/82 Blood Pressure Mean: 95 Blood Pressure Source: Automatic Cuff Medical Screen Scoring (Pre) - Cervical Exam Dilation: 1-3 cm = 1 Membranes: Intact - Uterine Contractions Frequency: N/A Duration: N/A Intensity: N/A - Maternal Vital Signs Maternal Temperature: N/A Maternal Blood Pressure: N/A Signs of Preeclampsia: N/A Maternal Respirations: N/A - Maternal Trauma Maternal Trauma: N/A - Assessment - Baby A Baseline FHR: 130 Heart Rate - NICHD Category: Category I (Normal) = 0 NST: Reactive Position: N/A Station: N/A - Total Score - Baby A Total Score - Baby A: 1 - Total Score - Baby B Total Score - Baby B: 1 - Total Score - Baby C Total Score - Baby C: 1 - Level of Risk - Baby A Level of Risk - Baby A: Low (0-5) - Level of Risk - Baby B Level of Risk - Baby B: Low (0-5) - Level of Risk - Baby C Level of Risk - Baby C: Low (0-5) Medical Screen Scoring (Post) - Cervical Exam Dilation: Exam Deferred Effacement: Exam Deferred Membranes: Intact - Uterine Contractions Frequency: N/A Duration: N/A Intensity: N/A - Maternal Vital Signs Maternal Temperature: N/A Signs of Preeclampsia: N/A Maternal Respirations: N/A - Pain Assessment Pain Location and Character: Lower, Pelvic Pain Scale Used: Numeric (1 - 10) Pain Intensity: 1 Pain Management Goal: 4 Pain Description: Dull Pain Radiation Location: suprapubic pelvic pressure Pain Frequency: Constant Pain Duration: 2 Pain Duration Units: Hours Pain Behavior: None Exhibited Pain Aggravating Factors: None - Maternal Trauma Maternal Trauma: N/A - Assessment - Baby A Heart Rate: 115 Heart Rate - NICHD Category: Category I (Normal) = 0 NST: Reactive Position: N/A Station: N/A - Total Score Total Score - Baby A: 0 Total Score - Baby B: 0 Total Score - Baby C: 0 - Post Treatment Level of Risk Post Treatment Level of Risk - Baby A: Low (0-5) Post Treatment Level of Risk - Baby B: Low (0-5) Post Treatment Level of Risk - Baby C: Low (0-5) Physician Notification (Post) - Physician Notified Physician Notified Date: 06/13/20 Physician Notified Time: 19:51 Physician/Practitioner Notified:: Laura Spoke With: Dr. Sanchez New Order Received: Yes - Notification Comment Comment: FFN results were negative, Keflex 500mg being sent to patients pharamcy patient to take 4 times a day for 7 days. Disposition - Disposition OB Disposition: Discharge to home Discharge Date: 06/13/20 Discharge Time: 20:08 I agree with the RN Medical Screening Exam: Yes Case reviewed; plan agreed upon as documented in EMR&OBIX.: Yes Diagnosis: URINARY TRACT INFECTION, SITE NOT SPECIFIED (Patient presented to labor and delivery with complaints of suprapubic pressure. Patient has a history in the past of pyelonephritis and also in this history of urinary tract infection. Unfortunately does not appear that she brings her urine to the office on a regular basis for her visits. Urinalysis here was consistent with a urinary tract infection. Due to the patient's history of pyelonephritis in the past and noncompliance I gave her 1 dose of IV Ancef and some IV fluids. We did check a fibronectin was negative and there was no evidence of labor. I also sent in a prescription for Keflex to take as an outpatient. Patient is encouraged to follow up with Dr. Guerin for continued close observation.)
== END 2020-06-13 20:08 | disposition home or self-care (01) ==
LOC: FBPOP 17:33
PROVIDERS: ATTEND Obstetrics & Gynecology
DX: O23.43 Unspecified infection of urinary tract in pregnancy, third trimester (principal); Z3A.32 32 weeks gestation of pregnancy
CPT/HCPCS: 59025; 96361; 96365; 82731; 81001; 87086; 87077; 87186; G0463; J0690; 99214

== ENCOUNTER 2020-07-14 21:08 | Outpatient (CLI) | payer OTHER ==
[2020-07-15 00:06] VITALS: BP 124/85; PULSE 94; RESP 16; TEMP 96.6
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
== END 2020-07-14 23:55 | disposition home or self-care (01) ==
LOC: FBPOP 21:08
PROVIDERS: ATTEND Obstetrics & Gynecology
DX: O26.93 Pregnancy related conditions, unspecified, third trimester (principal); Z3A.36 36 weeks gestation of pregnancy
CPT/HCPCS: 59025; G0463; 99213

== ENCOUNTER 2020-08-03 06:15 | Inpatient (IN) | payer OTHER ==
[2020-08-03] MEDS ORDERED: OXYTOCIN 10 UNIT/ML 1 ML VIAL IM PRN (06:56)
[2020-08-03] MEDS ORDERED: CARBOPROST TROMETHAMINE 250 MCG/ML 1 ML AMP IM PRN (06:56)
[2020-08-03] MEDS ORDERED: LIDOCAINE 0.5% (PF) 5 MG/ML (50 ML SDV) SQ PRN (06:56)
[2020-08-03] MEDS ORDERED: METHYLERGONOVINE 0.2 MG/ML 1 ML AMP IM PRN (06:56)
[2020-08-03] MEDS ORDERED: TERBUTALINE 1 MG/ML VIAL SQ PRN (06:56)
[2020-08-03] MEDS ORDERED: OXYTOCIN 30 UNITS/500 ML NS 30 UNIT in SALINE 1 500ML.BAG IV SCH (07:00)
[2020-08-03] MEDS: LACTATED RINGERS 1,000 ML IV SCH ×2 (07:17→09:30)
[2020-08-03 07:32] LABS: Basophils % (A) 0 %; Eosinophils # (A) 0.1 k/uL (0-0.7); Eosinophils % (A) 1 %; HCT 30.6 % (34.0-46.0); HGB 9.8 gm/dL (11.4-16.0); Hypochromasia Slight; Lymphocytes # (A) 1.4 k/uL (1.0-4.8); Lymphocytes % (A) 20 %; MCHC 32.2 g/dL (31.0-37.0); MCV 80.9 fL (80.0-100.0); Monocytes # (A) 0.4 k/uL (0-1.0); Monocytes % (A) 5 %; Neutrophils # (A) 5.3 k/uL (1.3-7.7); Neutrophils % (A) 73 %; Platelet Count 183 k/uL (150-450); Poikilocytosis Slight; RBC 3.78 m/uL (3.80-5.40); RDW 15.6 % (11.5-15.5); WBC 7.3 k/uL (3.8-10.6)
[2020-08-03] MEDS ORDERED: ROPIVACAINE 100 MG, fentaNYL (PF). 200 MCG in SODIUM CHLORIDE 0.9% 76 ML EPIDURAL ONE (08:45)
[2020-08-03] MEDS ORDERED: ZOLPIDEM 5 MG TAB PO PRN (12:22)
[2020-08-03] MEDS ORDERED: diphenhydrAMINE 50 MG/ML 1 ML VIAL IVP PRN ×2 (12:22)
[2020-08-03] MEDS ORDERED: diphenhydrAMINE 50 MG CAP PO PRN (12:22)
[2020-08-03] MEDS ORDERED: ACETAMINOPHEN TAB 325 MG TAB PO PRN (12:22)
[2020-08-03] MEDS ORDERED: SIMETHICONE 80 MG CHEWABLE PO PRN (12:22)
[2020-08-03] MEDS ORDERED: LANOLIN CREAM 5 GM TUBE TOPICAL PRN (12:22)
[2020-08-03] MEDS ORDERED: HYDROCORTISONE 2.5% RECTAL CREAM 30 GM TUBE RECTAL PRN (12:22)
[2020-08-03] MEDS ORDERED: BENZOCAINE/MENTHOL SPRAY 1 GM/SPRAY AEROSOL TOPICAL PRN (12:22)
[2020-08-03] MEDS ORDERED: diphenhydrAMINE 25 MG CAP PO PRN (12:22)
--- NOTE | 2020-08-03 12:25 | P.HPOB ---
History of Present Illness H&P Date: 08/03/20 Chief Complaint: Uterine at term Leno is a 25-year-old at 39 weeks gestation arise for induction of labor. Risks/benefits/alternatives reviewed and all questions were answered for her prior to proceeding with the induction of labor. She plans to use an ep idural for analgesia. Pertinent labs include O- blood type Rh antibody was negative, rubella is immune, hepatitis B surface antigen to be strep and HIV are all negative. She has had no problems with the is feeling well at this time. Category 1 tracing is noted. Artificial rupture membranes was performed with clear fluid noted. She was dilated to 4 cm 80% effaced and -2 station. Past Medical History Past Medical History: Syncope Additional Past Medical History / Comment(s): SYNCOPE; gestational diabetesdiet controlled previous History of Any Multi-Drug Resistant Organisms: None Reported Additional Past Surgical History / Comment(s): KIDNEY SURGERY Past Anesthesia/Blood Transfusion Reactions: No Reported Reaction Past Psychological History: No Psychological Hx Reported Smoking Status: Never smoker Past Alcohol Use History: None Reported Past Drug Use History: None Reported Additional Drug Use History / Comment(s): pt states she smokes marijuana occasionally - Past Family History Mother Family Medical History: No Reported History Brother(s) Additional Family Medical History / Comment(s): Autistic Medications and Allergies Home Medications Medication Instructions Recorded Confirmed Type No Known Home Medications 06/13/20 08/03/20 History Allergies Allergy/AdvReac Type Severity Reaction Status Date / Time codeine AdvReac Nausea & Verified 08/03/20 06:56 Vomiting Exam Osteopathic Statement: *. No significant issues noted on an osteopathic structural exam other than those noted in the History and Physical/Consult. Vital Signs Temp Pulse Resp BP Pulse Ox 08/03/20 12:00 93 16 128/87 08/03/20 11:45 90 16 133/81 08/03/20 11:30 92 16 133/83 08/03/20 11:15 93 16 135/73 08/03/20 11:00 96.6 F L 95 16 142/92 08/03/20 06:55 97.3 F L 99 16 136/87 100 Intake and Output 08/02/20 08/03/20 08/03/20 22:59 06:59 14:59 Other: Weight 65.771 kg - OBG Physical Exam Breast: both: normal (no masses) Abdomen: bowel sounds normal, no diffuse tenderness, no bruit present, no guarding noted, no hepatomegaly, no splenomegaly, no mass Vulva: both: normal Vagina: normal moisture, no discharge Cervix: no lesion, no discharge Uterus: normal size, normal contour Adnexa: both: normal Anus/Rectum: normal perianal skin, no rectal mass, no hemorrhoids, heme negative Results Result Diagrams: 08/03/20 07:17 Abnormal Lab Results - Last 24 Hours (Table) 08/03/20 Range/Units 07:17 RBC 3.78 L (3.80-5.40) m/uL Hgb 9.8 L (11.4-16.0) gm/dL Hct 30.6 L (34.0-46.0) % RDW 15.6 H (11.5-15.5) %
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
[2020-08-03] MEDS: IBUPROFEN 600 MG TAB PO SCH ×2 (13:36→19:53)
[2020-08-03] MEDS ORDERED: Rhogam IMMUNE GLOBULIN 1,500 UNIT/1 ML IM ONE (18:01)
[2020-08-03] MEDS ORDERED: SENNOSIDES-DOCUSATE SODIUM 1 EACH TAB PO SCH (20:00)
[2020-08-04] MEDS: IBUPROFEN 600 MG TAB PO SCH (05:44)
--- NOTE | 2020-08-04 07:20 | P.DS ---
Providers Date of admission: 08/03/20 06:36 Expected date of discharge: 08/04/20 Attending physician: Jose Guerin Primary care physician: Stated None Hospital Course: Patient is doing very well day 1. She is ambulating, voiding and she is tolerating her diet. She voices no complaints. Vital signs are stable and showed very mild tachycardia. She reports no lightheadedness or other signs or symptoms issues. Her temperature is been normal as well. No other complaints. heart regular, lungs clear, extremities without pain. Abdomen is soft uterus is firm and lochia is reported be light. day 1. Plan discharged home follow up with me in 6 weeks. Discharge instructions were thoroughly reviewed and all questions were answered for her to discharge. She declines medication for pain Patient Condition at Discharge: Good Plan - Discharge Summary New Discharge Prescriptions: No Action No Known Home Medications Discharge Medication List No Known Home Medications 06/13/20 [History] Follow up Appointment(s)/Referral(s): Jose Guerin DO [Doctor of Osteopathic Medicine] - 1 Week Activity/Diet/Wound Care/Special Instructions: NO heavy lifting, limit stairs and driving, and pelvic rest. If any high temperatures, heavy bleeding, or severe pain call my office Discharge Disposition: HOME SELF-CARE
[2020-08-04 08:04] VITALS: BP 127/78; PULSE 118; RESP 15; TEMP 99.5
== END 2020-08-04 11:42 | disposition home or self-care (01) | DRG 807 ==
LOC: 4FBP 06:36
PROVIDERS: ADMIT Obstetrics & Gynecology; ATTEND Obstetrics & Gynecology
PROC: 00HU33Z Insertion of Infusion Device into Spinal Canal, Percutaneous Approach (ICD-10-PCS; principal; 2020-08-03)
PROC: 10E0XZZ Delivery of Products of Conception, External Approach (ICD-10-PCS; principal; 2020-08-03)
PROC: 3E0R3NZ Introduction of Analgesics, Hypnotics, Sedatives into Spinal Canal, Percutaneous Approach (ICD-10-PCS; principal; 2020-08-03)
PROC: 0UQGXZZ Repair Vagina, External Approach (ICD-10-PCS; principal; 2020-08-03)
PROC: 0HQ9XZZ Repair Perineum Skin, External Approach (ICD-10-PCS; principal; 2020-08-03)
DX: O70.0 First degree perineal laceration during delivery (principal); Z37.0 Single live birth; Z3A.39 39 weeks gestation of pregnancy; Z86.32 Personal history of gestational diabetes; O69.81X0 Labor and delivery complicated by cord around neck, without compression, not applicable or unspecified
CPT/HCPCS: 85025; 85461; 86850; 86900; 86901

== ENCOUNTER 2022-11-08 14:26 | Emergency (ER) | payer OTHER ==
--- NOTE | 2022-11-08 14:58 | ED ---
Abdominal Pain HPI - General Source: patient, RN notes reviewed Mode of arrival: ambulatory Limitations: no limitations - History of Present Illness MD Complaint: abdominal pain <Shivani Alexis - Last Filed: 11/08/22 15:00> <Sonal Saldana - Last Filed: 11/15/22 18:41> - General Chief Complaint: Abdominal Pain Stated Complaint: L side abd pain Time Seen by Provider: 11/08/22 14:55 - History of Present Illness Initial Comments: This is a 27-year-old female who presents to the emergency department for left- sided abdominal pain starting earlier today. Denies any fevers/chills, nausea/vomiting, or changes in bowel/bladder habits. She does have a history of severe kidney infections, and sometimes has abdominal pain when these occur. Denies any radiation into the back at this time. (Shivani Alexis) Patient is a 27-year-old female who presents to the emergency department for abdominal pain. Started today in the left lower abdomen. The pain is sharp. There is no radiation. Patient is concerned she has a kidney infection which she has history of. She denies urinary symptoms, fever, chills, nausea, vomiting. No diarrhea, blood in stool. (Sonal Saldana) - Related Data Previous Rx's Medication Instructions Recorded Cephalexin [Keflex] 250 mg PO Q6HR #20 cap 11/08/22 Ibuprofen [Motrin] 400 mg PO Q6HR PRN #30 tab 11/08/22 Ondansetron Odt [Zofran Odt] 4 mg PO Q8HR PRN #10 tab 11/08/22 Allergies Allergy/AdvReac Type Severity Reaction Status Date / Time codeine AdvReac Nausea & Verified 11/08/22 14:51 Vomiting Review of Systems ROS Other: All systems not noted in ROS Statement are negative. <Shivani Alexis - Last Filed: 11/08/22 15:00> ROS Other: All systems not noted in ROS Statement are negative. <Sonal Saldana - Last Filed: 11/15/22 18:41> ROS Statement: Those systems with pertinent positive or pertinent negative responses have been documented in the HPI. Past Medical History Past Medical History: Syncope Additional Past Medical History / Comment(s): SYNCOPE; gestational diabetesdiet controlled previous History of Any Multi-Drug Resistant Organisms: None Reported Additional Past Surgical History / Comment(s): KIDNEY SURGERY Past Anesthesia/Blood Transfusion Reactions: No Reported Reaction Past Psychological History: No Psychological Hx Reported Smoking Status: Vaper Past Alcohol Use History: None Reported Past Drug Use History: None Reported - Past Family History Mother Family Medical History: No Reported History Brother(s) Additional Family Medical History / Comment(s): Autistic <Shivani Alexis - Last Filed: 11/08/22 15:00> General Exam Limitations: no limitations <Shivani Alexis - Last Filed: 11/08/22 15:00> General appearance: alert Eye exam: Present: normal appearance, PERRL, EOMI. Absent: scleral icterus, conjunctival injection, periorbital swelling Respiratory exam: Present: normal lung sounds bilaterally. Absent: respiratory distress, wheezes, rales, rhonchi, stridor Cardiovascular Exam: Present: regular rate, normal rhythm, normal heart sounds. Absent: systolic murmur, diastolic murmur, rubs, gallop, clicks GI/Abdominal exam: Present: soft, tenderness (llq), normal bowel sounds. Absent: distended, guarding, rebound, rigid Neurological exam: Present: alert Psychiatric exam: Present: normal affect, normal mood Skin exam: Present: warm, dry, intact, normal color. Absent: rash <Sonal Saldana - Last Filed: 11/15/22 18:41> - General Exam Comments Initial Comments: Visual Physical Exam Vital signs reviewed General: Well-appearing, nontoxic, no acute distress. Head: Normocephalic, atraumatic Eyes: PERRLA, EOMI ENT: Airway patent Chest: Nonlabored breathing Skin: No visual rash, normal skin tone Neuro: Alert and oriented 3 Musculoskeletal: No gross abnormalities (Shivani Alexis) Course Vital Signs 11/08/22 11/08/22 11/08/22 14:48 18:45 20:23 Temperature 98.7 F 98.6 F Pulse Rate 98 71 80 Respiratory 20 18 18 Rate Blood Pressure 129/85 132/86 134/85 O2 Sat by Pulse 100 100 100 Oximetry Medical Decision Making <Shivani Alexis - Last Filed: 11/08/22 15:00> - Lab Data Result diagrams: 11/08/22 16:30 11/08/22 16:30 <Sonal Saldana - Last Filed: 11/15/22 18:41> - Medical Decision Making I performed the QuickNote portion of this chart. Signed Shivani Alexis PA-C. (Shivani Alexis) Was pt. sent in by a medical professional or institution ([facility] [employer], POTTERY DECORATOR, urgent care, hospital, or shelter...) When possible be specific @ -No Did you speak to anyone other than the patient for history (EMS, parent, family, police, friend...)? What history was obtained from this source @ -No Did you review nursing and triage notes (agree or disagree)? Why? @ -I reviewed and agree with nursing and triage notes Were old charts reviewed (outside hosp., previous admission, EMS record, old EKG, old radiological studies, urgent care reports/EKG's, shelter records)? Report findings @ -No old charts were reviewed Differential Diagnosis (chest pain, altered mental status, abdominal pain women, abdominal pain men, vaginal bleeding, weakness, fever, dyspnea, syncope, headache, dizziness, GI bleed, back pain, seizure, CVA, palpatations, mental health)? @ -Differential Abdominal Pain Women: Appendicitis, Cholecystitis, diverticulosis, ischemic bowel, pancreatitis, hepatitis, UTI, gastroenteritis, AAA, incarcerated hernia, bowel obstruction, constipation, inflammatory bowel, hepatitis, peptic ulcer disease, splenic infarction, perforated viscus, vulvitis, ovarian torsion, PID, kidney stone, placenta abruption, this is not meant to be an all-inclusive list EKG interpreted by me (3pts min.). @ -As above X-rays interpreted by me (1pt min.). @ -None done CT interpreted by me (1pt min.). @ -None done U/S interpreted by me (1pt. min.). @ No acute process What testing was considered but not performed or refused? (CT, X-rays, U/S, labs)? Why? @ -None What meds were considered but not given or refused? Why? @ -None Did you discuss the management of the patient with other professionals (professionals i.e. [facility] Fortune, POTTERY DECORATOR, lab, RT, psych nurse, social work professor, casting chipper, teacher, first aid officer, manager case)? Give summary @ -No Was smoking cessation discussed for >3mins.? @ -No Was critical care preformed (if so, how long)? @ -No Were there social determinants of health that impacted care today? How? (Homelessness, low income, unemployed, alcoholism, drug addiction, transportation, low edu. Level, literacy, decrease access to med. care, residential, re hab)? @ -No Was there de-escalation of care discussed even if they declined (Discuss DNR or withdrawal of care, Hospice)? DNR status @ -No What co-morbidities impacted this encounter? (DM, HTN, Smoking, COPD, CAD, Cancer, CVA, ARF, Chemo, Hep., AIDS, mental health diagnosis, sleep apnea, morbid obesity)? @ -None Was patient admitted / discharged? Hospital course, mention meds given and route, prescriptions, significant lab abnormalities, going to OR and other pertinent info. @ -Patient presenting with pain in her left lower abdomen. She is well- appearing, afebrile. Ultrasound was obtained and interpreted by myself which did rule out torsion and other acute process.Laboratory studies obtained. Urine is positive for large leukocyte esterase and nitrates with rare bacteria. There is no leukocytosis. Patient will be discharged with Keflex for UTI. She has no systemic symptoms or signs and is in stable medical condition for discharge. We discussed return parameters Undiagnosed new problem with uncertain prognosis? @ -No Drug Therapy requiring intensive monitoring for toxicity (Heparin, Nitro, Insulin, Cardizem)? @ -No Were any procedures done? @ -No Diagnosis/symptom? @ -UTI Acute, or Chronic, or Acute on Chronic? @ -acute Uncomplicated (without systemic symptoms) or Complicated (systemic symptoms)? @ -uncomplicated Side effects of treatment? @ -No] Exacerbation, Progression, or Severe Exacerbation? @ -[No] Poses a threat to life or bodily function? How? (Chest pain, USA, [place], pneumonia, PE, COPD, DKA, ARF, appy, cholecystitis, CVA, Diverticulitis, Homicidal, Suicidal, threat to staff... and all critical care pts) @ -[No] Dr. Salazar is my attending (Sonal Saldana) - Lab Data Lab Results 11/08/22 11/08/22 11/08/22 Range/Units 16:30 16:30 16:30 WBC 4.6 (3.8-10.6) k/uL RBC 3.96 (3.80-5.40) m/uL Hgb 12.5 (11.4-16.0) gm/dL Hct 35.2 (34.0-46.0) % MCV 88.8 (80.0-100.0) fL MCH 31.7 (25.0-35.0) pg MCHC 35.6 (31.0-37.0) g/dL RDW 12.8 (11.5-15.5) % Plt Count 182 (150-450) k/uL MPV 7.6 Neutrophils % 59 % Lymphocytes % 32 % Monocytes % 4 % Eosinophils % 2 % Basophils % 0 % Neutrophils # 2.7 (1.3-7.7) k/uL Lymphocytes # 1.5 (1.0-4.8) k/uL Monocytes # 0.2 (0-1.0) k/uL Eosinophils # 0.1 (0-0.7) k/uL Basophils # 0.0 (0-0.2) k/uL Sodium 138 (137-145) mmol/L Potassium 4.1 (3.5-5.1) mmol/L Chloride 105 (98-107) mmol/L Carbon Dioxide 24 (22-30) mmol/L Anion Gap 9 mmol/L BUN 13 (7-17) mg/dL Creatinine 0.70 (0.52-1.04) mg/dL Est GFR (CKD-EPI)AfAm >90 (>60 ml/min/1.73 sqM) Est GFR (CKD-EPI)NonAf >90 (>60 ml/min/1.73 sqM) Glucose 89 (74-99) mg/dL Plasma Lactic Acid Gregg 0.8 (0.7-2.0) mmol/L Calcium 9.0 (8.4-10.2) mg/dL Total Bilirubin 1.0 (0.2-1.3) mg/dL AST 19 (14-36) U/L ALT 16 (4-34) U/L Alkaline Phosphatase 68 (38-126) U/L Total Protein 7.6 (6.3-8.2) g/dL Albumin 4.4 (3.5-5.0) g/dL Lipase 88 (23-300) U/L Urine Color Urine Appearance (Clear) Urine pH (5.0-8.0) Ur Specific [place] (1.001-1.035) Urine Protein (Negative) Urine Glucose (UA) (Negative) Urine Ketones (Negative) Urine Blood (Negative) Urine Nitrite (Negative) Urine Bilirubin (Negative) Urine Urobilinogen (<2.0) mg/dL Ur Leukocyte Esterase (Negative) Urine RBC (0-5) /hpf Urine WBC (0-5) /hpf Ur Squamous Epith Cells (0-4) /hpf Urine Bacteria (None) /hpf Hyaline Casts (0-2) /lpf Urine HCG, Qual (Not Detectd) 11/08/22 11/08/22 Range/Units 18:43 18:43 WBC (3.8-10.6) k/uL RBC (3.80-5.40) m/uL Hgb (11.4-16.0) gm/dL Hct (34.0-46.0) % MCV (80.0-100.0) fL MCH (25.0-35.0) pg MCHC (31.0-37.0) g/dL RDW (11.5-15.5) % Plt Count (150-450) k/uL MPV Neutrophils % % Lymphocytes % % Monocytes % % Eosinophils % % Basophils % % Neutrophils # (1.3-7.7) k/uL Lymphocytes # (1.0-4.8) k/uL Monocytes # (0-1.0) k/uL Eosinophils # (0-0.7) k/uL Basophils # (0-0.2) k/uL Sodium (137-145) mmol/L Potassium (3.5-5.1) mmol/L Chloride (98-107) mmol/L Carbon Dioxide (22-30) mmol/L Anion Gap mmol/L BUN (7-17) mg/dL Creatinine (0.52-1.04) mg/dL Est GFR (CKD-EPI)AfAm (>60 ml/min/1.73 sqM) Est GFR (CKD-EPI)NonAf (>60 ml/min/1.73 sqM) Glucose (74-99) mg/dL Plasma Lactic Acid Gregg (0.7-2.0) mmol/L Calcium (8.4-10.2) mg/dL Total Bilirubin (0.2-1.3) mg/dL AST (14-36) U/L ALT (4-34) U/L Alkaline Phosphatase (38-126) U/L Total Protein (6.3-8.2) g/dL Albumin (3.5-5.0) g/dL Lipase (23-300) U/L Urine Color Yellow Urine Appearance Turbid H (Clear) Urine pH 6.0 (5.0-8.0) Ur Specific [place] 1.021 (1.001-1.035) Urine Protein 1+ H (Negative) Urine Glucose (UA) Negative (Negative) Urine Ketones Negative (Negative) Urine Blood Negative (Negative) Urine Nitrite Positive H (Negative) Urine Bilirubin Negative (Negative) Urine Urobilinogen <2.0 (<2.0) mg/dL Ur Leukocyte Esterase Large H (Negative) Urine RBC 1 (0-5) /hpf Urine WBC 1 (0-5) /hpf Ur Squamous Epith Cells 1 (0-4) /hpf Urine Bacteria Rare H (None) /hpf Hyaline Casts 1 (0-2) /lpf Urine HCG, Qual Not Detected (Not Detectd) Disposition <Shivani Alexis - Last Filed: 11/08/22 15:00> Is patient prescribed a controlled substance at d/c from ED?: No <Sonal Saldana - Last Filed: 11/15/22 18:41> Clinical Impression: UTI (urinary tract infection) Disposition: HOME SELF-CARE Condition: Good Instructions (If sedation given, give patient instructions): Urinary Tract Infection in Women (ED) Additional Instructions: Increase water intake.Take medication as directed. Please follow-up with your primary care provider in 1-2 days. Return to the emergency department if you experience new, concerning, or worsening symptoms. Prescriptions: Cephalexin [Keflex] 250 mg PO Q6HR #20 cap Ibuprofen [Motrin] 400 mg PO Q6HR PRN #30 tab PRN Reason: Pain Ondansetron Odt [Zofran Odt] 4 mg PO Q8HR PRN #10 tab PRN Reason: Nausea Referrals: Angelo Blaes MD [Primary Care Provider] - 1-2 days
[2022-11-08] MEDS ORDERED: SODIUM CHLORIDE 0.9% 1,000 ML IV STA (16:20)
[2022-11-08] MEDS ORDERED: KETOROLAC 15 MG/ML 1 ML VIAL IVP STA (16:20)
[2022-11-08 16:56] LABS: Basophils % (A) 0 %; Eosinophils # (A) 0.1 k/uL (0-0.7); Eosinophils % (A) 2 %; HCT 35.2 % (34.0-46.0); HGB 12.5 gm/dL (11.4-16.0); Lymphocytes # (A) 1.5 k/uL (1.0-4.8); Lymphocytes % (A) 32 %; MCH 31.7 pg (25.0-35.0); MCHC 35.6 g/dL (31.0-37.0); MCV 88.8 fL (80.0-100.0); Mean Platelet Volume 7.6; Monocytes # (A) 0.2 k/uL (0-1.0); Monocytes % (A) 4 %; Neutrophils # (A) 2.7 k/uL (1.3-7.7); Neutrophils % (A) 59 %; Platelet Count 182 k/uL (150-450); RBC 3.96 m/uL (3.80-5.40); RDW 12.8 % (11.5-15.5); WBC 4.6 k/uL (3.8-10.6)
[2022-11-08] MEDS ORDERED: ONDANSETRON 4 MG/2 ML VIAL IVP STA (17:02)
[2022-11-08 17:08] LABS: ALT 16 U/L (4-34); AST 19 U/L (14-36); African American GFR (CKD) >90 (>60 ml/min/1.73 sqM); Albumin 4.4 g/dL (3.5-5.0); Alkaline Phosphatase 68 U/L (38-126); Anion Gap 9 mmol/L; Blood Urea Nitrogen 13 mg/dL (7-17); Carbon Dioxide 24 mmol/L (22-30); Chloride 105 mmol/L (98-107); Glucose 89 mg/dL (74-99); Lipase 88 U/L (23-300); Non-African American GFR(CKD) >90 (>60 ml/min/1.73 sqM); Potassium 4.1 mmol/L (3.5-5.1); Sodium 138 mmol/L (137-145); Total Protein 7.6 g/dL (6.3-8.2)
[2022-11-08] MEDS ORDERED: HYDROmorphone 0.5 MG/0.5 ML SYRINGE IVP STA (17:58)
[2022-11-08 18:46] VITALS: RESP 18; TEMP 98.6
--- NOTE | 2022-11-08 19:13 | US ---
EXAMINATION TYPE: US pelvis complete transvag DATE OF EXAM: 11/08/2022 COMPARISON: NONE CLINICAL INDICATION: Female, 27 years old with history of LLQ pain; LLQ pain today. TECHNIQUE: Transabdominal sonographic images of the pelvis were acquired. Transvaginal sonographic i mages were medically necessary to better assess the following anatomy: Lt ovary Date of LMP: 3 weeks ago, not sure on exact date EXAM MEASUREMENTS: Uterus: 8.3 x 7.4 x 4.7 cm Endometrial Stripe: 1.4 cm Right Ovary: 3.6 x 2.3 x 1.7 cm Left Ovary: Not seen 1. Uterus: Anteverted wnl 2. Endometrium: wnl 3. Right Ovary: wnl 4. Left Ovary: Obscured by overlying bowel gas Spectral, color and waveform doppler imaging shows good arterial and venous flow within the ovaries ; there is no evidence for ovarian torsion. 5. Bilateral Adnexa: Free fluid seen in left adnexa 6. Posterior cul-de-sac: Free fluid seen IMPRESSION: 1. Small amount of free fluid is seen within the pelvis. 2. Appropriate arterial and venous spectral waveforms to the right ovary. 3. The left ovary is not visualized. 4. Endometrium within normal limits for thickness.
[2022-11-08 19:51] LABS: Appearance,Urine Turbid (Clear); Bilirubin,Urine Negative (Negative); Blood,Urine Negative (Negative); Color,Urine Yellow; Glucose,Urine (UA) Negative (Negative); Ketones,Urine Negative (Negative); Leukocyte Esterase,Urine Large (Negative); Nitrite,Urine Positive (Negative); Protein,Urine 1+ (Negative); Specific Gravity,Urine 1.021 (1.001-1.035); Urobilinogen,Urine <2.0 mg/dL (<2.0)
[2022-11-08] MEDS ORDERED: CEPHALEXIN 250 MG CAP PO STA (20:00)
[2022-11-08 20:06] LABS: Bacteria,Urine Rare /hpf; RBC,Urine 1 /hpf (0-5); Squamous Epithelial Cell,Urine 1 /hpf (0-4); WBC,Urine 1 /hpf (0-5)
[2022-11-08 20:07] LABS: Hyaline Casts,Urine 1 /lpf (0-2)
[2022-11-08 20:24] VITALS: BP 134/85; PULSE 80
== END 2022-11-08 20:28 | disposition home or self-care (01) ==
LOC: EC 14:26
DX: N39.0 Urinary tract infection, site not specified (principal); F17.290 Nicotine dependence, other tobacco product, uncomplicated; Z88.5 Allergy status to narcotic agent
CPT/HCPCS: 36415; 80053; 83605; 83690; 85025; 81001; 81025; 93976; 76856; 76830; 99284; 96374; 96375 ×2; 96361; J2405; J1885; J1170

== ENCOUNTER → 2022-12-08 | Outpatient (CLI) | payer OTHER ==
--- NOTE | 2022-12-08 15:41 | US ---
EXAMINATION TYPE: US kidneys/renal and bladder DATE OF EXAM: 12/08/2022 COMPARISON: US kidney and CT 2018 CLINICAL INDICATION: Female, 27 years old with history of N39.0 RECURRENT UTI; hx renal calcs; hx juan jose lonephritis EXAM MEASUREMENTS: Right Kidney: 10.7 x 3.9 x 4.8 cm Left Kidney: 9.1 x 3.7 x 4.2 cm Post Void Residual Volume: 166 mL Right Kidney: Full pelvis appearance Left Kidney: Echogenic with hyperechoic foci Bladder: Debris noted within Bilateral Jets seen: No Normal Post Void Residual: No There is no evidence for hydronephrosis at this point in time. No perinephric fluid collections. Mild prominence of the right renal pelvis. No nephrolithiasis is seen. No masses are identified. . Nons pecific debris within the ureter bladder. Post void residual of 166 cc. Spleen is at the upper limits of normal for size measuring 13.5 cm in greatest dimension. IMPRESSION: 1. No hydronephrosis. 2. Nonobstructive left renal calculi. 3. Nonspecific debris within urinary urinary bladder. Correlate with urinalysis. 4. Abnormal post void residual.
== END | disposition home or self-care (01) ==
LOC: RADUSWWP 14:51
PROVIDERS: ATTEND Family Medicine
DX: N20.0 Calculus of kidney (principal); N39.0 Urinary tract infection, site not specified; Z87.442 Personal history of urinary calculi
CPT/HCPCS: 76770

== ENCOUNTER 2023-01-26 08:14 | Emergency (ER) | payer OTHER ==
[2023-01-26 08:20] VITALS: TEMP 98.1
--- NOTE | 2023-01-26 08:31 | ED ---
ENT HPI - General Chief complaint: ENT Stated complaint: R Ear Pain Time Seen by Provider: 01/26/23 08:16 Source: patient, RN notes reviewed Mode of arrival: ambulatory Limitations: no limitations - History of Present Illness Initial comments: 27-year-old female presents emergency department to complaint of right ear pain. She states she had some fullness in her ear yesterday but states is very painful today since 4:30. Patient has ALLERGY to codeine no other drug ALLERGIES. No fever she has no congestion no cough no sore throat. - Related Data Previous Rx's Medication Instructions Recorded Cephalexin [Keflex] 250 mg PO Q6HR #20 cap 11/08/22 Ibuprofen [Motrin] 400 mg PO Q6HR PRN #30 tab 11/08/22 Ondansetron Odt [Zofran Odt] 4 mg PO Q8HR PRN #10 tab 11/08/22 Amoxicillin 875 mg PO Q12HR #20 tablet 01/26/23 Allergies Allergy/AdvReac Type Severity Reaction Status Date / Time codeine AdvReac Nausea & Verified 01/26/23 08:18 Vomiting Review of Systems ROS Statement: Those systems with pertinent positive or pertinent negative responses have been documented in the HPI. ROS Other: All systems not noted in ROS Statement are negative. Past Medical History Past Medical History: Syncope Additional Past Medical History / Comment(s): SYNCOPE; gestational diabetesdiet controlled previous History of Any Multi-Drug Resistant Organisms: None Reported Additional Past Surgical History / Comment(s): KIDNEY SURGERY Past Anesthesia/Blood Transfusion Reactions: No Reported Reaction Past Psychological History: ADD/ADHD Smoking Status: Vaper Past Alcohol Use History: None Reported Past Drug Use History: None Reported - Past Family History Mother Family Medical History: No Reported History Brother(s) Additional Family Medical History / Comment(s): Autistic General Exam Limitations: no limitations General appearance: alert, in no apparent distress Head exam: Present: atraumatic, normocephalic, normal inspection Eye exam: Present: normal appearance, PERRL, EOMI. Absent: scleral icterus, conjunctival injection, periorbital swelling ENT exam: Present: normal oropharynx, mucous membranes moist, normal external ear exam. Absent: TM's normal bilaterally (Erythematous right) Neck exam: Present: normal inspection, full ROM. Absent: tenderness, meningismus, lymphadenopathy Respiratory exam: Present: normal lung sounds bilaterally. Absent: respiratory distress, wheezes, rales, rhonchi, stridor Cardiovascular Exam: Present: regular rate, normal rhythm, normal heart sounds. Absent: systolic murmur, diastolic murmur, rubs, gallop, clicks Course Vital Signs 01/26/23 08:15 Temperature 98.1 F Pulse Rate 100 Respiratory 15 Rate Blood Pressure 128/83 O2 Sat by Pulse 100 Oximetry Medical Decision Making - Medical Decision Making Was pt. sent in by a medical professional or institution (, [facility], CUSTOMER PROGRAM SPECIALIST, urgent care, hospital, or [place] health [facility] facility...) When possible be specific @ -No Did you speak to anyone other than the patient for history (EMS, parent, family, police, friend...)? What history was obtained from this source @ -No Did you review nursing and triage notes (agree or disagree)? Why? @ -I reviewed and agree with nursing and triage notes Were old charts reviewed (outside hosp., previous admission, EMS record, old EKG, old radiological studies, urgent care reports/EKG's, [place] health [facility] facility records)? Report findings @ -No old charts were reviewed Differential Diagnosis (chest pain, altered mental status, abdominal pain women, abdominal pain men, vaginal bleeding, weakness, fever, dyspnea, syncope, headache, dizziness, GI bleed, back pain, seizure, CVA, palpatations, mental health, musculoskeletal)? @ -Eustachian tube dysfunction, otalgia otitis media EKG interpreted by me (3pts min.). @ -None X-rays interpreted by me (1pt min.). @ -None done CT interpreted by me (1pt min.). @ -None done U/S interpreted by me (1pt. min.). @ -None done What testing was considered but not performed or refused? (CT, X-rays, U/S, labs)? Why? @ -None What meds were considered but not given or refused? Why? @ -None Did you discuss the management of the patient with other professionals (professionals i.e. DIONICIO Fortune, CUSTOMER PROGRAM SPECIALIST, lab, RT, psych nurse, social staff worker, gas distribution supervisor, teacher, botanical technical officer, case filler)? Give summary @ -No Was smoking cessation discussed for >3mins.? @ -No Was critical care preformed (if so, how long)? @ -No Were there social determinants of health that impacted care today? How? (Homelessness, low income, unemployed, alcoholism, drug addiction, transportation, low edu. Level, literacy, decrease access to med. care, skilled nursing, re hab)? @ -No Was there de-escalation of care discussed even if they declined (Discuss DNR or withdrawal of care, Hospice)? DNR status @ -No What co-morbidities impacted this encounter? (DM, HTN, Smoking, COPD, CAD, Cancer, CVA, ARF, Chemo, Hep., AIDS, mental health diagnosis, sleep apnea, morbid obesity)? @ -None Was patient admitted / discharged? Hospital course, mention meds given and route, prescriptions, significant lab abnormalities, going to OR and other pertinent info. @ -Discharge patient has right otitis media, mild fluid noted patient was started on amoxicillin. Patient advised take [id number] and has become decongestant return parameters were discussed. Undiagnosed new problem with uncertain prognosis? @ -No Drug Therapy requiring intensive monitoring for toxicity (Heparin, Nitro, Insulin, Cardizem)? @ -No Were any procedures done? @ -No Diagnosis/symptom? @ -Right otitis media Acute, or Chronic, or Acute on Chronic? @ -Acute Uncomplicated (without systemic symptoms) or Complicated (systemic symptoms)? @ -Uncomplicated Side effects of treatment? @ -No Exacerbation, Progression, or Severe Exacerbation? @ -No Poses a threat to life or bodily function? How? (Chest pain, [place], [place], pneumonia, PE, COPD, DKA, ARF, appy, cholecystitis, CVA, Diverticulitis, Homicidal, Suicidal, threat to staff... and all critical care pts) @ -No Disposition Clinical Impression: Otitis media Disposition: HOME SELF-CARE Condition: Stable Instructions (If sedation given, give patient instructions): Earache (ED) Additional Instructions: Please return to the Emergency Department if symptoms worsen or any other concerns. Prescriptions: Amoxicillin 875 mg PO Q12HR #20 tablet Is patient prescribed a controlled substance at d/c from ED?: No Referrals: Angelo Bales MD [Primary Care Provider] - 1-2 days Time of Disposition: 08:31
[2023-01-26 09:15] VITALS: BP 125/78; PULSE 87; RESP 16
== END 2023-01-26 10:29 | disposition home or self-care (01) ==
LOC: EC 08:14
DX: H66.91 Otitis media, unspecified, right ear (principal); Z88.5 Allergy status to narcotic agent
CPT/HCPCS: 99283

== ENCOUNTER 2024-03-19 22:13 | Emergency (ER) | payer OTHER ==
--- NOTE | 2024-03-19 22:37 | ED ---
Abdominal Pain HPI - General Source: patient, RN notes reviewed <Gwen Jones - Last Filed: 03/19/24 22:35> - General Source: patient, RN notes reviewed Mode of arrival: ambulatory Limitations: no limitations <Shakir Diaz - Last Filed: 03/20/24 01:38> - General Stated Complaint: Abdominal pain Time Seen by Provider: 03/19/24 22:30 - History of Present Illness Initial Comments: Quick [id number] female presenting to the emergency department for chief complaint of left lower quadrant/pelvic pain that occurred this evening around 2129. States the pain is described as a throbbing sensation. She endorses nausea. Denies fevers, chills, vomiting. Denies dysuria, hematuria, increase in urinary frequency or urgency. (Gwen Jones) 28-year-old female presents emerged part complaint left lower quadrant abdominal pain. Patient states waxing waning that is actually improving at this time. Patient states she has had a prior ovarian cyst that felt some marriage denies any urinary symptoms including frequency or dysuria no flank pain no fevers or chills no other complaints. (Shakir Diaz) - Related Data Previous Rx's Medication Instructions Recorded Cephalexin [Keflex] 250 mg PO Q6HR #20 cap 11/08/22 Ibuprofen [Motrin] 400 mg PO Q6HR PRN #30 tab 11/08/22 Ondansetron Odt [Zofran Odt] 4 mg PO Q8HR PRN #10 tab 11/08/22 Amoxicillin 875 mg PO Q12HR #20 tablet 01/26/23 Allergies Allergy/AdvReac Type Severity Reaction Status Date / Time codeine AdvReac Nausea & Verified 03/19/24 22:39 Vomiting Review of Systems ROS Other: All systems not noted in ROS Statement are negative. <Gwen Jones - Last Filed: 03/19/24 22:35> ROS Other: All systems not noted in ROS Statement are negative. <Shakir Diaz - Last Filed: 03/20/24 01:38> ROS Statement: Those systems with pertinent positive or pertinent negative responses have been documented in the HPI. Past Medical History Past Medical History: Syncope Additional Past Medical History / Comment(s): SYNCOPE; gestational diabetesdiet controlled previous History of Any Multi-Drug Resistant Organisms: None Reported Additional Past Surgical History / Comment(s): KIDNEY SURGERY Past Anesthesia/Blood Transfusion Reactions: No Reported Reaction Past Psychological History: ADD/ADHD Smoking Status: Vaper Past Alcohol Use History: None Reported Past Drug Use History: None Reported - Past Family History Mother Family Medical History: No Reported History Brother(s) Additional Family Medical History / Comment(s): Autistic <Gwen Jones - Last Filed: 03/19/24 22:35> General Exam <Gwen Jones - Last Filed: 03/19/24 22:35> Limitations: no limitations General appearance: alert, in no apparent distress Head exam: Present: atraumatic, normocephalic, normal inspection Eye exam: Present: normal appearance, PERRL, EOMI. Absent: scleral icterus, conjunctival injection, periorbital swelling ENT exam: Present: normal exam, normal oropharynx, mucous membranes moist Neck exam: Present: normal inspection, full ROM. Absent: tenderness, meningismus, lymphadenopathy Respiratory exam: Present: normal lung sounds bilaterally. Absent: respiratory distress, wheezes, rales, rhonchi, stridor Cardiovascular Exam: Present: regular rate, normal rhythm, normal heart sounds. Absent: systolic murmur, diastolic murmur, rubs, gallop, clicks GI/Abdominal exam: Present: soft, normal bowel sounds. Absent: distended, tenderness, guarding, rebound, rigid <Shakir Diaz - Last Filed: 03/20/24 01:38> - General Exam Comments Initial Comments: Visual Physical Exam Vital signs reviewed General: Well-appearing, nontoxic, no acute distress. Head: Normocephalic, atraumatic Eyes: PERRLA, EOMI ENT: Airway patent Chest: Nonlabored breathing Skin: No visual rash, normal skin tone Neuro: Alert and oriented 3 Musculoskeletal: No gross abnormalities (Gwen Jones) Course Vital Signs 03/19/24 22:36 Temperature 98 F Pulse Rate 88 Respiratory 16 Rate Blood Pressure 135/92 O2 Sat by Pulse 97 Oximetry Medical Decision Making <Gwen Jones - Last Filed: 03/19/24 22:35> - Lab Data Result diagrams: 03/19/24 23:22 03/19/24 23:22 <Shakir Diaz - Last Filed: 03/20/24 01:38> - Medical Decision Making I completed the quick note portion of this chart signed Gwen Jones PA-C (Gwen Jones) Was pt. sent in by a medical professional or institution ([facility], [employer]INE[employer], urgent care, hospital, or snf...) When possible be specific @ -No Did you speak to anyone other than the patient for history (EMS, parent, family, police, friend...)? What history was obtained from this source @ -No Did you review nursing and triage notes (agree or disagree)? Why? @ -I reviewed and agree with nursing and triage notes Were old charts reviewed (outside hosp., previous admission, EMS record, old EKG, old radiological studies, urgent care reports/EKG's, snf records)? Report findings @ -No old charts were reviewed Differential Diagnosis (chest pain, altered mental status, abdominal pain women, abdominal pain men, vaginal bleeding, weakness, fever, dyspnea, syncope, headache, dizziness, GI bleed, back pain, seizure, CVA, palpatations, mental health, musculoskeletal)? @ -Differential Abdominal Pain Women: Appendicitis, Cholecystitis, diverticulosis, ischemic bowel, pancreatitis, hepatitis, UTI, gastroenteritis, AAA, incarcerated hernia, bowel obstruction, constipation, inflammatory bowel, hepatitis, peptic ulcer disease, splenic infarction, perforated viscus, vulvitis, ovarian torsion, PID, kidney stone, placenta abruption, this is not meant to be an all-inclusive list EKG interpreted by me (3pts min.). @ -None X-rays interpreted by me (1pt min.). @ -None done CT interpreted by me (1pt min.). @ -None done U/S interpreted by me (1pt. min.). @ -Ultrasound pelvic transvaginal shows no acute process no ovarian cysts no masses no endometrial abnormalities What testing was considered but not performed or refused? (CT, X-rays, U/S, labs)? Why? @ -None What meds were considered but not given or refused? Why? @ -None Did you discuss the management of the patient with other professionals (professionals i.e. [facility], [employer] ENGINEER, lab, RT, psych nurse, social media strategist, innersole maker, teacher, agricultural technical officer, mental health case manager)? Give summary @ -No Was smoking cessation discussed for >3mins.? @ -No Was critical care preformed (if so, how long)? @ -No Were there social determinants of health that impacted care today? How? (Homelessness, low income, unemployed, alcoholism, drug addiction, transportation, low edu. Level, literacy, decrease access to med. care, detention, rehab)? @ -No Was there de-escalation of care discussed even if they declined (Discuss DNR or withdrawal of care, Hospice)? DNR status @ -No What co-morbidities impacted this encounter? (DM, HTN, Smoking, COPD, CAD, Cancer, CVA, ARF, Chemo, Hep., AIDS, mental health diagnosis, sleep apnea, morbid obesity)? @ -None Was patient admitted / discharged? Hospital course, mention meds given and route, prescriptions, significant lab abnormalities, going to OR and other pertinent info. @ -Discharge patient states she does feel improved this time patient had labs, ultrasound and urinalysis ordered this was not completed I did offer patient to wait for urinalysis she states she has no symptoms and feels better at this time. Undiagnosed new problem with uncertain prognosis? @ -No Drug Therapy requiring intensive monitoring for toxicity (Heparin, Nitro, Insulin, Cardizem)? @ -No Were any procedures done? @ -No Diagnosis/symptom? @ -Abdominal pain Acute, or Chronic, or Acute on Chronic? @ -Acute Uncomplicated (without systemic symptoms) or Complicated (systemic symptoms)? @ -Uncomplicated Side effects of treatment? @ -No Exacerbation, Progression, or Severe Exacerbation? @ -No Poses a threat to life or bodily function? How? (Chest pain, USA, SD, pneumonia, PE, COPD, DKA, ARF, appy, cholecystitis, CVA, Diverticulitis, Homicidal, Suicidal, threat to staff... and all critical care pts) @ -No (Shakir Diaz) - Lab Data Lab Results 03/19/24 03/19/24 Range/Units 23:22 23:22 WBC 7.4 (3.8-10.6) k/uL RBC 4.29 (3.80-5.40) m/uL Hgb 13.2 (11.4-16.0) gm/dL Hct 38.9 (34.0-46.0) % MCV 90.6 (80.0-100.0) fL MCH 30.8 (25.0-35.0) pg MCHC 33.9 (31.0-37.0) g/dL RDW 12.6 (11.5-15.5) % Plt Count 216 (150-450) k/uL MPV 6.7 Neutrophils % 66 % Lymphocytes % 27 % Monocytes % 4 % Eosinophils % 1 % Basophils % 0 % Neutrophils # 4.9 (1.3-7.7) k/uL Lymphocytes # 2.0 (1.0-4.8) k/uL Monocytes # 0.3 (0-1.0) k/uL Eosinophils # 0.1 (0-0.7) k/uL Basophils # 0.0 (0-0.2) k/uL Sodium 139 (137-145) mmol/L Potassium 4.3 (3.5-5.1) mmol/L Chloride 103 (98-107) mmol/L Carbon Dioxide 27 (22-30) mmol/L Anion Gap 9 mmol/L BUN 19 H (7-17) mg/dL Creatinine 0.64 (0.52-1.04) mg/dL Est GFR (CKD-EPI)AfAm >90 (>60 ml/min/1.73 sqM) Est GFR (CKD-EPI)NonAf >90 (>60 ml/min/1.73 sqM) Glucose 92 (74-99) mg/dL Calcium 9.7 (8.4-10.2) mg/dL Total Bilirubin 0.8 (0.2-1.3) mg/dL AST 18 (14-36) U/L ALT 14 (4-34) U/L Alkaline Phosphatase 75 (38-126) U/L Total Protein 7.7 (6.3-8.2) g/dL Albumin 4.9 (3.5-5.0) g/dL Disposition <Gwen Jones - Last Filed: 03/19/24 22:35> Is patient prescribed a controlled substance at d/c from ED?: No Time of Disposition: 01:31 <Shakir Diaz - Last Filed: 03/20/24 01:38> Clinical Impression: Abdominal pain Disposition: HOME SELF-CARE Condition: Stable Instructions (If sedation given, give patient instructions): Abdominal Pain (ED) Additional Instructions: Please return to the Emergency Department if symptoms worsen or any other concerns. Referrals: Angelo Bales MD [Primary Care Provider] - 1-2 days
[2024-03-19 22:39] VITALS: BP 135/92; PULSE 88; RESP 16; TEMP 98
--- NOTE | 2024-03-19 23:31 | US ---
EXAMINATION TYPE: US transvaginal DATE OF EXAM: 03/19/2024 COMPARISON: US 2022 CLINICAL INDICATION: Female, 28 years old with history of lower left pelvic pain, r/o torsion; Pt sta nori LLQ pain since 9:30 with nausea. States hx of ovarian cyst during TECHNIQUE: Transvaginal (TV). Transabdominal grayscale sonographic images of the pelvis were acquired. Transvaginal sonographic im ages were medically necessary to better assess the following anatomy: Ovaries Doppler imaging: Color Doppler Images were obtained. Spectral doppler images were obtained. FINDINGS: Date of LMP: 03/12/24 EXAM MEASUREMENTS: Uterus: 9.1 x 4.4 x 5.8 cm Endometrial Stripe: 0.9 cm Right Ovary: 2.3 x 1.4 x 2.1 cm Left Ovary: 3.3 x 2.3 x 2.3 cm 1. Uterus: Anteverted Appears slightly heterogeneous 2. Endometrium: wnl 3. Right Ovary: follicular changes seen, wnl 4. Left Ovary: follicular changes seen, wnl Spectral, color and waveform doppler imaging shows good arterial and venous flow within the ovaries ; 5. Bilateral Adnexa: wnl as best seen 6. Posterior cul-de-sac: wnl IMPRESSION: No suspicious adnexal masses. Unremarkable study. [facility], , 03/19/2024 11:29 PM
[2024-03-19 23:39] LABS: Basophils % (A) 0 %; Eosinophils # (A) 0.1 k/uL (0-0.7); Eosinophils % (A) 1 %; HCT 38.9 % (34.0-46.0); HGB 13.2 gm/dL (11.4-16.0); Lymphocytes % (A) 27 %; MCH 30.8 pg (25.0-35.0); MCHC 33.9 g/dL (31.0-37.0); MCV 90.6 fL (80.0-100.0); Mean Platelet Volume 6.7; Monocytes # (A) 0.3 k/uL (0-1.0); Monocytes % (A) 4 %; Neutrophils # (A) 4.9 k/uL (1.3-7.7); Neutrophils % (A) 66 %; Platelet Count 216 k/uL (150-450); RBC 4.29 m/uL (3.80-5.40); RDW 12.6 % (11.5-15.5); WBC 7.4 k/uL (3.8-10.6)
[2024-03-20 00:03] LABS: ALT 14 U/L (4-34); AST 18 U/L (14-36); African American GFR (CKD) >90 (>60 ml/min/1.73 sqM); Albumin 4.9 g/dL (3.5-5.0); Alkaline Phosphatase 75 U/L (38-126); Anion Gap 9 mmol/L; Blood Urea Nitrogen 19 mg/dL (7-17); Calcium 9.7 mg/dL (8.4-10.2); Carbon Dioxide 27 mmol/L (22-30); Chloride 103 mmol/L (98-107); Glucose 92 mg/dL (74-99); Non-African American GFR(CKD) >90 (>60 ml/min/1.73 sqM); Potassium 4.3 mmol/L (3.5-5.1); Sodium 139 mmol/L (137-145); Total Bilirubin 0.8 mg/dL (0.2-1.3); Total Protein 7.7 g/dL (6.3-8.2)
== END 2024-03-20 01:36 | disposition home or self-care (01) ==
LOC: EC 22:13
DX: R10.32 Left lower quadrant pain (principal); F17.290 Nicotine dependence, other tobacco product, uncomplicated; Z88.5 Allergy status to narcotic agent
CPT/HCPCS: 36415; 76830; 80053; 85025; 93975; 99284